=== PATIENT | male | born 1950 | race Caucasian/White ===

== ENCOUNTER 2021-09-18 09:58 | Inpatient (IN) ==
[2021-09-18] MEDS ORDERED: ONDANSETRON INJ 2 MG/ML 2 ML VIAL IV STA (10:19)
[2021-09-18] MEDS ORDERED: MoRPHine SULFATE 4 MG/ML 1 ML CARP\\VIAL IV PRN (10:19)
[2021-09-18] MEDS ORDERED: SODIUM CHLORIDE 0.9% 1000ML 1,000 ML IV STA (10:19)
[2021-09-18 10:33] LABS: Basophils # (auto) 0.01 K/uL (0-0.2); Basophils % (auto) 0.1 %; Eosinophils # (auto) 0.03 K/uL (0-0.5); Eosinophils % (auto) 0.4 %; Hemoglobin 15.7 g/dL (14.0-18.0); Immature Granulocytes # (auto) 0.03 K/uL (0.00-0.02); Immature Granulocytes % (auto) 0.4 %; Lymphocytes # (auto) 1.09 K/uL (1.2-3.4); Lymphocytes % (auto) 12.7 %; Mean Corpuscular Hemoglobin 29.6 pg (25-34); Mean Corpuscular Hgb Conc 34.9 g/dL (32-36); Mean Corpuscular Volume 84.9 fL (80-100); Mean Platelet Volume 10.1 fL (7.4-10.4); Monocytes # (auto) 1.64 K/uL (0.11-0.59); Monocytes % (auto) 19.1 %; Neutrophils # (auto) 5.77 K/uL (1.4-6.5); Neutrophils % (auto) 67.3 %; Platelet Count 296 K/uL (130-400); RDW Coefficient of Variation 14.8 % (11.5-14.5); White Blood Count 8.57 K/uL (4.8-10.8)
--- NOTE | 2021-09-18 10:34 | Emergency Department Note ---
Impression & Plan SBO (small bowel obstruction), Bowel perforation ED Provider Note NAME: RUBÉN MTZ AGE: 70 SEX: M : 1950 ARRIVES VIA: Walk-In INFORMANT: Patient, ED PROVIDER(S): Nikita Chopra DO CHIEF COMPLAINT: Abdominal pain HPI: The patient is a 70-year-old male who presented to the emergency department for an evaluation abdominal pain. The patient states he was having upper abdominal pain over the weekend. He initially thought it was GERD and reflux. Has been using [id number] medication for GERD and reflux without response. He then started noticing nausea vomiting and constipation. He tried MiraLAX without relief. His pain continued to worsen. He tried to see his family doctor today but was unable to get an appointment. He presented to the emergency department with his significant other for further evaluation. He has no surgical history on his abdomen. He has had no history of bowel obstruction in the past. He states he still has his gallbladder. He denies having any black or bloody bowel meds. He denies having any hematemesis. He denies having any fever. ROS: See above HPI for pertinent positives & negatives. A total of 10 systems reviewed and were otherwise negative. PAST MEDICAL HISTORY: See Below PAST SURGICAL HISTORY: See Below FAMILY HISTORY: See Below SOCIAL HISTORY: See Below HOME MEDICATIONS: See Below ALLERGIES: See Below VITALS: See Below PHYSICAL EXAMINATION: GENERAL: The patient is awake and alert. The patient is very anxious appearing appears to be uncomfortable. EYES: The conjunctivae are clear. The pupils are round and reactive. EARS, NOSE, MOUTH AND THROAT: The nose is without any evidence of any deformity. NECK: The neck is nontender and supple. RESPIRATORY: Normal respiratory effort is noted there is no evidence of wheezing rhonchi or rales CARDIOVASCULAR: Regular rate and rhythm noted there no murmurs rubs or gallops normal S1 normal S2. GASTROINTESTINAL: The abdomen was moderately distended and diffusely tender. Th ere is guarding in the right upper quadrant. No inguinal masses or tenderness was appreciated. MUSCULOSKELETAL/EXTREMITIES: There is no evidence of gross deformity full range of motion is noted in the hips and shoulders. SKIN: There is no obvious evidence of any rash. There are no petechiae, pallor or cyanosis noted. NEUROLOGIC: Patient is awake alert and oriented x3. MEDICAL DECISION MAKING: The patient is a 70-year-old male who presented to the emergency department for an evaluation of abdominal pain. The patient has had abdominal pain for the l ast 3 days. His history and physical exam are consistent with a possible surgical abdomen. For this reason further laboratory and radiographic studies were obtained. The patient was treated with IV fluids IV antibiotics and IV pain medication in the emergency department. I discussed the patient's condition with the on-call general surgical group. He was found no signs of bowel obstruction as well as possible perforation with an early abscess. The location would suggest a perforated appendicitis however the patient did not have fever or elevated white blood cell count. It is possible this represents a site of perforation that could be related to some other bowel pathology. The patient does not have a previous surgical history on his abdomen. He was reevaluated multiple times. He was evaluated by the general surgical group in the emergency department. Triage Nursing notes reviewed. Prior medical records reviewed Vital Signs: reviewed and remarkable for no significant abnormalities Differential diagnosis: Etiologies such as appendicitis, diverticulitis, obstruction, inflammatory bowel disease, renal colic, PUD, biliary pathology, pancreatitis, mesenteric ischemia, aortic pathology, infections, genitourinary, UTI, perforated viscus, as well as others were entertained. ER treatment provided: See below Diagnostics interpreted by me: ECG: EKG was obtained in the emergency department. My interpretation is sinus tachycardia 103 bpm. There is no ectopy. There is no acute ST segment abnormalities noted. No previous tracing was available. Cardiac Monitoring: An order was placed for continuous cardiac monitoring. The monitor shows a rate of 99 bpm with sinus rhythm. Laboratory studies: As stated above and show below. Imaging studies: See below Consultation(s): I discussed this case with Caleb Agee who is on for general surgery. They will evaluate the patient in the emergency department. Past Med/Surg History Surgical History History of tonsillectomy Social History Smoking Status: Former smoker Allergies Allergies Allergy/AdvReac Type Severity Reaction Status Date / Time No Known Allergies Allergy Unverified 09/18/21 10:36 Home Meds Home Medications Medication Instructions Recorded Confirmed Blossom Root Tab 1 tab PO DAILY 09/18/21 09/18/21 [id number]-[id number] 0 unit PO QPM 09/18/21 09/18/21 apple cider vinegar 300 mg tablet 0 mg PO DAILY 09/18/21 09/18/21 calcium carbonate 200 mg calcium 0 mg PO QID PRN 09/18/21 09/18/21 (500 mg) chewable tablet (Tums) cyanocobalamin (vitamin B-12) 100 0 mcg PO DAILY 09/18/21 09/18/21 mcg tablet (Vitamin B-12) esomeprazole magnesium 20 mg 0 mg PO DAILY 09/18/21 09/18/21 capsule,delayed release (Nexium) melatonin 5 mg tablet 5 mg PO HS 09/18/21 09/18/21 naproxen sodium 220 mg tablet 220 mg PO HS 09/18/21 09/18/21 (Aleve) omega-3 fatty acids 1,000 mg PO DAILY 09/18/21 09/18/21 Results & Data (ED) Vital Signs Vital Signs - 24 hr 09/18/21 10:05 09/18/21 10:41 09/18/21 11:44 Temperature 36.8 C Temperature Source Oral Pulse Rate 117 H 99 H Pulse Rate [Apical] 96 H Pulse Rate [Right Finger] Pulse Rate from SpO2 Sensor Pulse Rhythm Regular Pulse Rhythm [Right Finger] Pulse Strength [Right Finger] Respiratory Rate 20 18 19 Respiratory Effort / Characteristics Respiratory Depth Respiratory Pattern Blood Pressure 150/97 H Blood Pressure [Left Arm] 144/88 H Blood Pressure Mean 114 Blood Pressure Mean [Left Arm] 106 Blood Pressure Position [Left Arm] Pulse Oximetry 93 94 96 Oxygen Delivery Method Room Air Room Air Room Air Sepsis Recent Fever Within 48 Hours No Sepsis New/Unexplained Change in Mental Status No Sepsis Action Taken by Nursing No Action Required 09/18/21 12:00 09/18/21 12:30 09/18/21 13:34 Temperature Temperature Source Pulse Rate 94 H 94 H 102 H Pulse Rate [Apical] Pulse Rate [Right Finger] Pulse Rate from SpO2 Sensor 94 H 95 H Pulse Rhythm Pulse Rhythm [Right Finger] Pulse Strength [Right Finger] Respiratory Rate 23 19 20 Respiratory Effort / Characteristics Respiratory Depth Respiratory Pattern Blood Pressure 135/84 132/95 Blood Pressure [Left Arm] Blood Pressure Mean 101 107 Blood Pressure Mean [Left Arm] Blood Pressure Position [Left Arm] Pulse Oximetry 96 96 96 Oxygen Delivery Method Room Air Room Air Sepsis Recent Fever Within 48 Hours Sepsis New/Unexplained Change in Mental Status Sepsis Action Taken by Nursing 09/18/21 14:17 Temperature 37 C Temperature Source Oral Pulse Rate Pulse Rate [Apical] Pulse Rate [Right Finger] 99 H Pulse Rate from SpO2 Sensor Pulse Rhythm Pulse Rhythm [Right Finger] Regular Pulse Strength [Right Finger] Normal Respiratory Rate 18 Respiratory Effort / Characteristics Non-Labored Spontaneous Respiratory Depth Normal Respiratory Pattern Regular Blood Pressure Blood Pressure [Left Arm] 119/81 Blood Pressure Mean Blood Pressure Mean [Left Arm] 93 Blood Pressure Position [Left Arm] Sitting Pulse Oximetry 94 Oxygen Delivery Method Room Air Sepsis Recent Fever Within 48 Hours Sepsis New/Unexplained Change in Mental Status Sepsis Action Taken by Shelter Medications Current Medication List: was personally reviewed by me Laboratory Data Attestation: I reviewed the patient's lab results. Result diagrams: 09/18/21 10:20 09/18/21 10:20 Lab Results 09/18/21 09/18/21 09/18/21 Range/Units 10:20 10:20 10:20 WBC 8.57 (4.8-10.8) K/uL RBC 5.30 (4.7-6.1) M/uL Hgb 15.7 (14.0-18.0) g/dL POC Hgb (14.0-18.0) g/dl Hct 45.0 (42-52) % POC Hct (42-52) % MCV 84.9 (80-100) fL MCH 29.6 (25-34) pg MCHC 34.9 (32-36) g/dL RDW Std Deviation 46.0 (36.4-46.3) fL RDW Coeff of Gabbie 14.8 H (11.5-14.5) % Plt Count 296 (130-400) K/uL MPV 10.1 (7.4-10.4) fL Immature Gran % (Auto) 0.4 % Neut % (Auto) 67.3 % Lymph % (Auto) 12.7 % [place] % (Auto) 19.1 % Eos % (Auto) 0.4 % Baso % (Auto) 0.1 % Neut # (Auto) 5.77 (1.4-6.5) K/uL Lymph # (Auto) 1.09 L (1.2-3.4) K/uL [place] # (Auto) 1.64 H (0.11-0.59) K/uL Eos # (Auto) 0.03 (0-0.5) K/uL Baso # (Auto) 0.01 (0-0.2) K/uL Immature Gran # (Auto) 0.03 H (0.00-0.02) K/uL PT 11.7 (9.0-12.0) Seconds INR 1.1 (0.9-1.1) APTT 28.1 (21.0-31.0) Seconds PTT Ratio 1.0 POC Sodium (135-144) mmol/L Sodium 134 L (136-145) mmol/L POC Potassium (3.3-5.0) mmol/L Potassium 4.0 (3.5-5.1) mmol/L POC Chloride (101-112) mmol/L Chloride 100 (98-107) mmol/L Carbon Dioxide 22 (21-32) mmol/L POC Total CO2 (24-31) mmol/L Anion Gap 12 H (3-11) POC Anion Gap (16-25) mmol/L POC BUN (7-18) mg/dl BUN 50 H (6-23) mg/dl Creatinine 1.65 H (0.6-1.4) mg/dl POC Creatinine (0.6-1.3) mg/dl Est Cr Clr Drug Dosing 45.7 ml/min Est GFR ( Amer) 47.4 ml/min Est GFR (Non-Af Amer) 40.9 ml/min BUN/Creatinine Ratio 30.3 H (10-20) Glucose 129 H (70-99(Fasting)) mg/dl POC Glucose (other) (70-99) mg/dl Calcium 9.8 (8.5-10.1) mg/dl POC Ioniz Calcium Jonny (1.12-1.32) mmol/l Total Bilirubin 2.5 H (0.2-1.0) mg/dl AST 12 L (13-39) U/L ALT 11 (7-52) U/L Alkaline Phosphatase 75 (34-104) U/L Troponin I < 0.03 (0-0.04) ng/ml Total Protein 8.2 (6.0-8.3) gm/dl Albumin 3.9 (3.4-5.0) gm/dl Globulin 4.3 H (2.5-4.0) gm/dl Albumin/Globulin Ratio 0.9 (0.9-2) Lipase 9 L (11-82) U/L SARS-CoV-2, RNA, NAAT (NEGATIVE) 09/18/21 09/18/21 Range/Units 10:27 Unknown WBC (4.8-10.8) K/uL RBC (4.7-6.1) M/uL Hgb (14.0-18.0) g/dL POC Hgb 17.3 (14.0-18.0) g/dl Hct (42-52) % POC Hct 51 (42-52) % MCV (80-100) fL MCH (25-34) pg MCHC (32-36) g/dL RDW Std Deviation (36.4-46.3) fL RDW Coeff of Gabbie (11.5-14.5) % Plt Count (130-400) K/uL MPV (7.4-10.4) fL Immature Gran % (Auto) % Neut % (Auto) % Lymph % (Auto) % [place] % (Auto) % Eos % (Auto) % Baso % (Auto) % Neut # (Auto) (1.4-6.5) K/uL Lymph # (Auto) (1.2-3.4) K/uL [place] # (Auto) (0.11-0.59) K/uL Eos # (Auto) (0-0.5) K/uL Baso # (Auto) (0-0.2) K/uL Immature Gran # (Auto) (0.00-0.02) K/uL PT (9.0-12.0) Seconds INR (0.9-1.1) APTT (21.0-31.0) Seconds PTT Ratio POC Sodium 136 (135-144) mmol/L Sodium (136-145) mmol/L POC Potassium 4.0 (3.3-5.0) mmol/L Potassium (3.5-5.1) mmol/L POC Chloride 102 (101-112) mmol/L Chloride (98-107) mmol/L Carbon Dioxide (21-32) mmol/L POC Total CO2 21 L (24-31) mmol/L Anion Gap (3-11) POC Anion Gap 17.0 (16-25) mmol/L POC BUN 48 H (7-18) mg/dl BUN (6-23) mg/dl Creatinine (0.6-1.4) mg/dl POC Creatinine 1.6 H (0.6-1.3) mg/dl Est Cr Clr Drug Dosing ml/min Est GFR ( Amer) ml/min Est GFR (Non-Af Amer) ml/min BUN/Creatinine Ratio (10-20) Glucose (70-99(Fasting)) mg/dl POC Glucose (other) 134 H (70-99) mg/dl Calcium (8.5-10.1) mg/dl POC Ioniz Calcium Jonny 1.20 (1.12-1.32) mmol/l Total Bilirubin (0.2-1.0) mg/dl AST (13-39) U/L ALT (7-52) U/L Alkaline Phosphatase (34-104) U/L Troponin I (0-0.04) ng/ml Total Protein (6.0-8.3) gm/dl Albumin (3.4-5.0) gm/dl Globulin (2.5-4.0) gm/dl Albumin/Globulin Ratio (0.9-2) Lipase (11-82) U/L SARS-CoV-2, RNA, NAAT NEGATIVE (NEGATIVE) Administered Medications Morphine Sulfate (Morphine Sulfate 4 Mg/Ml 1 Ml Carp\Vial) 4 mg IV Q15M PRN PRN Reason: Pain Stop: 10/02/21 10:18 Last Admin: 09/18/21 10:36 Dose: 4 mg Documented by: [id number] Discontinued Medications Sodium Chloride (Nss 1000ml) 1,000 mls @ 999 mls/hr IV .Q1H1M STA Stop: 09/18/21 11:19 Last Infusion: 09/18/21 12:15 Dose: 0 mls/hr Documented by: [id number] Admin: 09/18/21 10:35 Dose: 999 mls/hr Documented by: [id number] Piperacillin Sod/Tazobactam Sod (Zosyn) 4.5 gm in 120 mls @ 240 mls/hr IV NOW ONE Stop: 09/18/21 11:47 Last Infusion: 09/18/21 12:16 Dose: 0 mls/hr Documented by: [id number] Admin: 09/18/21 11:46 Dose: 240 mls/hr Documented by: [id number] Ioversol (Optiray 320 100ml) 94 ml IV ONCE ONE Stop: 09/18/21 11:14 Last Admin: 09/18/21 11:14 Dose: 94 ml Documented by: [id number] Ondansetron HCl (Ondansetron Inj 2 Mg/Ml 2 Ml Vial) 4 mg IV NOW STA Stop: 09/18/21 10:20 Last Admin: 09/18/21 10:36 Dose: 4 mg Documented by: [id number] Imaging Data Radiologist's Impression: Abdomen/Pelvis CT 09/18/21 10:19 CT SCAN OF THE ABDOMEN AND PELVIS WITH IV CONTRAST CLINICAL HISTORY: Generalized abdominal pain. COMPARISON STUDY: No priors. TECHNIQUE: Following the IV administration of 94 cc of Optiray 320, CT scan of the abdomen and pelvis is performed from the lung bases to the proximal femora. Images are reviewed in the axial, sagittal, and coronal planes. IV contrast was administered without complication. A dose lowering technique was utilized adhering to the principles of ALARA. CT DOSE: 518.12 mGy.cm FINDINGS: Lung bases: The heart is normal in size and without pericardial effusion. The coronary arteries are densely calcified. Emphysematous change is noted at the lung bases. Scarring/atelectasis is seen in the lower lobes. There is no airspace consolidation typical for pneumonia or pleural effusion identified. Liver: The contrast-enhanced liver is normal in size, contour, and attenuation. There is no intrahepatic biliary ductal dilatation. The hepatic veins and portal veins are patent. A 13 mm cyst is noted in the left lobe. Gallbladder: Unremarkable. Spleen: Normal in size and attenuation. Pancreas: Moderately atrophic and grossly unremarkable. Adrenal glands: Unremarkable. Kidneys: The contrast enhanced kidneys demonstrate cortical atrophy and are without hydronephrosis. The kidneys enhance symmetrically. A 4 mm nonobstructing calculus is noted in the left kidney. Abdominal vasculature: The abdominal aorta is normal in course and caliber noting advanced atherosclerotic calcification. Stomach and bowel: There is a moderate hiatal hernia. The proximal small bowel loops are dilated and fluid-filled measuring up to 5 cm. The distal/terminal ileum is markedly inflamed and decompressed. There is a possible transition point in the ventral abdomen on image #310. There are small bowel loops tethered in the central abdomen with evidence of perforation and peritonitis. A gas and fluid containing tract in the central mesentery on image #302 measures approximately 2 x 2 x 7.5 cm. A complex gas and fluid containing collection closely approximating the cecum on image #337 measures approximately 4 x 4 x 1.5 cm. The appendix is abnormally thickened and fluid-filled measuring up to 1.0 cm in diameter as seen on image #415. The wall appears thickened and hyperemic. Additionally, there is advanced diverticulosis of the sigmoid colon with surrounding inflammation. Peritoneum: Numerous foci of intraperitoneal free air are identified in the anterior abdomen and below the diaphragm. Trace free fluid is seen in the pelvis. See above for discussion of gas and fluid containing collections. Lymphadenopathy: None. Pelvic viscera: The prostate gland is markedly enlarged and heterogeneous noting median lobe hypertrophy. The bladder wall is thickened and trabeculated indicating chronic outlet obstruction. There is a small fat-containing left inguinal hernia. Skeletal structures: The skeletal structures are osteopenic. There is mild to moderate lumbosacral spondylosis. Advanced arthritic change is seen in the right hip. No lytic or blastic lesions are seen. An 11 mm bone island is incidentally noted in the sacrum. IMPRESSION: 1. There is evidence of visceral perforation and peritonitis with free air in the anterior abdomen and below the diaphragm. 2. The proximal small bowel loops are markedly distended and fluid-filled with a possible transition point in the distal ileum. This could represent a small bowel obstruction or possibly reactive ileus. 3. The exact site of perforation is unclear, and the greatest inflammation is seen involving the distal/terminal ileum. This may represent the site of perforation. Additional potential sites of perforation are considered less likely but include perforated appendicitis and/or sigmoid diverticulitis. 4. There gas and fluid containing collections in the central mesentery and along the lateral aspect of the cecum as detailed above. These likely represent developing abscesses 5. There is trace free fluid in the pelvis. 6. Emphysema. 7. Additional findings as above. ACT 112: Negative or not required by law. Electronically signed by: Long Lane M.D. 09/18/2021 11:36 AM Chest X-Ray 09/18/21 10:19 XR chest 1V portable CLINICAL HISTORY: pain. COMPARISON STUDY: No previous studies for comparison. TECHNIQUE: 1 view of the chest FINDINGS: Single frontal view of the chest demonstrates the cardiomediastinal silhouette to be within normal limits. There is a decreased inspiratory effort with elevation of the hemidiaphragms and crowding of the bronchovascular markings at the lung bases and centrally. Linear atelectasis is seen at the left lung base. The lungs are clear of alveolar opacities. There is no evidence for pleural effusion. There is no evidence for vascular congestion. There is no acute oss eous pathology. IMPRESSION: 1. Decreased inspiratory effort with linear atelectasis at the left lung base. ACT 112: Negative or not required by law. Electronically signed by: Emil Faith M.D. 09/18/2021 11:11 AM Discharge Plan Visit Data Chief Complaint: Abdominal Pain Stated Complaint: ABD PAIN ED Provider: Nikita Chopra Discharge Problem: SBO (small bowel obstruction), Bowel perforation Patient Disposition: Being Evaluated by Surgeon Discharge Instructions Interventions: ED Discharge Assessment Last Done: 09/18/21 13:36 Forms Stand Alone Forms: [id number] Prescriptions Prescriptions: No Action cyanocobalamin (vitamin B-12) [Vitamin B-12] 100 mcg Tablet 0 mcg PO DAILY RF: 0 [place] 3 Capsule 1,000 mg PO DAILY RF: 0 apple cider vinegar 300 mg Tablet 0 mg PO DAILY RF: 0 Blossom Root Tab 1 tab PO DAILY RF: 0 Beano Tablet 0 unit PO QPM RF: 0 naproxen sodium [Aleve] 220 mg Tablet 220 mg PO HS RF: 0 calcium carbonate [Tums] 200 mg calcium (500 mg) Tablet,Chewable 0 mg PO QID PRN (Reason: gi-upset) RF: 0 esomeprazole magnesium [Nexium] 20 mg Capsule,Delayed Release(Dr/Ec) 0 mg PO DAILY RF: 0 melatonin 5 mg Tablet 5 mg PO HS RF: 0 Referrals Referrals: PCP,NO [Physician] -
[2021-09-18 10:38] LABS: iSTAT Creatinine 1.6 mg/dl (0.6-1.3); iSTAT Hemoglobin 17.3 g/dl (14.0-18.0); iSTAT Ionized Calcium 1.2 mmol/l (1.12-1.32)
[2021-09-18 10:49] LABS: INR 1.1 (0.9-1.1); Partial Thromboplastin Time 28.1 Seconds (21.0-31.0); Prothrombin Time 11.7 Seconds (9.0-12.0)
[2021-09-18 10:55] LABS: Alanine Aminotransferase 11 U/L (7-52); Albumin Globulin Ratio 0.9 (0.9-2); Albumin Level 3.9 gm/dl (3.4-5.0); Alkaline Phosphatase 75 U/L (34-104); Anion Gap 12 (3-11); Aspartate Aminotransferase 12 U/L (13-39); BUN Creatinine Ratio 30.3 (10-20); Bilirubin,Total 2.5 mg/dl (0.2-1.0); Blood Urea Nitrogen 50 mg/dl (6-23); Calcium 9.8 mg/dl (8.5-10.1); Carbon Dioxide 22 mmol/L (21-32); Chloride 100 mmol/L (98-107); Creatinine Clr Calc Pharmacy 45.7 ml/min; Est GFR (African American) 47.4 ml/min; Est GFR (Non-African American) 40.9 ml/min; Globulin 4.3 gm/dl (2.5-4.0); Glucose 129 mg/dl (70-99(Fasting)); Lipase 9 U/L (11-82); Sodium 134 mmol/L (136-145); Total Protein 8.2 gm/dl (6.0-8.3)
[2021-09-18 10:57] LABS: Troponin I < 0.03 ng/ml (0-0.04)
--- NOTE | 2021-09-18 11:12 | XRay Report ---
XR chest 1V portable CLINICAL HISTORY: pain. COMPARISON STUDY: No previous studies for comparison. TECHNIQUE: 1 view of the chest FINDINGS: Single frontal view of the chest demonstrates the cardiomediastinal silhouette to be within normal li mits. There is a decreased inspiratory effort with elevation of the hemidiaphragms and crowding of th e bronchovascular markings at the lung bases and centrally. Linear atelectasis is seen at the left damian ng base. The lungs are clear of alveolar opacities. There is no evidence for pleural effusion. There is no evidence for vascular congestion. There is no acute osseous pathology. IMPRESSION: 1. Decreased inspiratory effort with linear atelectasis at the left lung base. ACT 112: Negative or not required by law. Electronically signed by: Emil Faith M.D. 09/18/2021 11:11 AM
[2021-09-18] MEDS ORDERED: OPTIRAY 320 100ml IV ONE (11:13)
[2021-09-18] MEDS ORDERED: PIPERACILL/TAZOBAC CONSULT ACTIVE PRN ×2 (11:18→21:16)
[2021-09-18] MEDS ORDERED: PIPERACILLIN/TAZOBACTAM 4.5 GM/120 ML BAG IV ONE (11:18)
--- NOTE | 2021-09-18 11:39 | CT Scan Report ---
CT SCAN OF THE ABDOMEN AND PELVIS WITH IV CONTRAST CLINICAL HISTORY: Generalized abdominal pain. COMPARISON STUDY: No priors. TECHNIQUE: Following the IV administration of 94 cc of Optiray 320, CT scan of the abdomen and pelvi s is performed from the lung bases to the proximal femora. Images are reviewed in the axial, sagittal , and coronal planes. IV contrast was administered without complication. A dose lowering technique wa s utilized adhering to the principles of ALARA. CT DOSE: 518.12 mGy.cm FINDINGS: Lung bases: The heart is normal in size and without pericardial effusion. The coronary arteries are d ensely calcified. Emphysematous change is noted at the lung bases. Scarring/atelectasis is seen in th e lower lobes. There is no airspace consolidation typical for pneumonia or pleural effusion identifie d. Liver: The contrast-enhanced liver is normal in size, contour, and attenuation. There is no intrahepa tic biliary ductal dilatation. The hepatic veins and portal veins are patent. A 13 mm cyst is noted i n the left lobe. Gallbladder: Unremarkable. Spleen: Normal in size and attenuation. Pancreas: Moderately atrophic and grossly unremarkable. Adrenal glands: Unremarkable. Kidneys: The contrast enhanced kidneys demonstrate cortical atrophy and are without hydronephrosis. T he kidneys enhance symmetrically. A 4 mm nonobstructing calculus is noted in the left kidney. Abdominal vasculature: The abdominal aorta is normal in course and caliber noting advanced atheroscle rotic calcification. Stomach and bowel: There is a moderate hiatal hernia. The proximal small bowel loops are dilated and fluid-filled measuring up to 5 cm. The distal/terminal ileum is markedly inflamed and decompressed. T here is a possible transition point in the ventral abdomen on image #310. There are small bowel loops tethered in the central abdomen with evidence of perforation and peritonitis. A gas and fluid contai cherrie tract in the central mesentery on image #302 measures approximately 2 x 2 x 7.5 cm. A complex ga s and fluid containing collection closely approximating the cecum on image #337 measures approximatel y 4 x 4 x 1.5 cm. The appendix is abnormally thickened and fluid-filled measuring up to 1.0 cm in wilfrido meter as seen on image #415. The wall appears thickened and hyperemic. Additionally, there is advance d diverticulosis of the sigmoid colon with surrounding inflammation. Peritoneum: Numerous foci of intraperitoneal free air are identified in the anterior abdomen and belo w the diaphragm. Trace free fluid is seen in the pelvis. See above for discussion of gas and fluid co ntaining collections. Lymphadenopathy: None. Pelvic viscera: The prostate gland is markedly enlarged and heterogeneous noting median lobe hypertro phy. The bladder wall is thickened and trabeculated indicating chronic outlet obstruction. There is a small fat-containing left inguinal hernia. Skeletal structures: The skeletal structures are osteopenic. There is mild to moderate lumbosacral sp ondylosis. Advanced arthritic change is seen in the right hip. No lytic or blastic lesions are seen. An 11 mm bone island is incidentally noted in the sacrum. IMPRESSION: 1. There is evidence of visceral perforation and peritonitis with free air in the anterior abdomen an d below the diaphragm. 2. The proximal small bowel loops are markedly distended and fluid-filled with a possible transition point in the distal ileum. This could represent a small bowel obstruction or possibly reactive ileus. 3. The exact site of perforation is unclear, and the greatest inflammation is seen involving the dist al/terminal ileum. This may represent the site of perforation. Additional potential sites of perforat ion are considered less likely but include perforated appendicitis and/or sigmoid diverticulitis. 4. There gas and fluid containing collections in the central mesentery and along the lateral aspect o f the cecum as detailed above. These likely represent developing abscesses 5. There is trace free fluid in the pelvis. 6. Emphysema. 7. Additional findings as above. ACT 112: Negative or not required by law. Electronically signed by: Long Lane M.D. 09/18/2021 11:36 AM
--- NOTE | 2021-09-18 12:15 | Electrocardiogram Report ---
Test Reason : Blood Pressure : / mmHG Vent. Rate : 103 BPM Atrial Rate : 103 BPM P-R Int : 152 ms QRS Dur : 092 ms QT Int : 332 ms P-R-T Axes : 066 052 063 degrees QTc Int : 434 ms Sinus tachycardia Otherwise normal ECG No previous ECGs available Confirmed by Nikita Goodson ([id number]) on 09/18/2021 12:15:22 PM Referred By: Confirmed By:Nikita Goodson
--- NOTE | 2021-09-18 13:55 | History & Physical Report ---
Date of Service September 18, 2021 Assessment & Plan (1) Perforated viscus: Plan: We discussed his findings. Certainly the patient needs to go urgently to the operating room for exploration. My suspicion is he has a perforated appendectomy with associated small bowel obstruction. This has also resulted in the intra-abdominal abscesses. We will take him to the operating room urgently for exploratory laparotomy possible bowel resection abdominal washout and surgery as needed. He will need antibiotics and rehydration. I discussed his options as well as the risks associated with the procedure which include bleeding, infection, injury to another organ, DVT, PE, WA, CVA etc. Following our discussion I answered all of his questions. He agrees with the plan. We will take him soon as possible to the operating room for exploration/ surgery as needed. (2) Small bowel obstruction: (3) Intra-abdominal abscess: (4) Dehydration: History of Present Illness Primary Care Provider: Baldo Maldonado MD 70-year-old healthy male who began having abdominal pain and nausea vomiting this past Thursday. His pain is progressed as has his nausea and vomiting. He was unable to have a bowel movement and took some toow-zwn-yggjbns laxatives. Imaging today reveals perforated viscus with small bowel obstruction and multiple abdominal abscesses. Allergies Allergy/AdvReac Type Severity Reaction Status Date / Time No Known Allergies Allergy Unverified 09/18/21 10:36 Home Medications Medication Instructions Recorded Confirmed Type Blossom Root Tab 1 tab PO DAILY 09/18/21 09/18/21 History tridi-p-krcpkcccypyyw 0 unit PO QPM 09/18/21 09/18/21 History apple cider vinegar 300 mg tablet 0 mg PO DAILY 09/18/21 09/18/21 History calcium carbonate 200 mg calcium 0 mg PO QID PRN 09/18/21 09/18/21 History (500 mg) chewable tablet (Tums) cyanocobalamin (vitamin B-12) 100 0 mcg PO DAILY 09/18/21 09/18/21 History mcg tablet (Vitamin B-12) esomeprazole magnesium 20 mg 0 mg PO DAILY 09/18/21 09/18/21 History capsule,delayed release (Nexium) melatonin 5 mg tablet 5 mg PO HS 09/18/21 09/18/21 History naproxen sodium 220 mg tablet 220 mg PO HS 09/18/21 09/18/21 History (Aleve) omega-3 fatty acids 1,000 mg PO DAILY 09/18/21 09/18/21 History Past Med/Surg History Surgical History History of tonsillectomy Social History Smoking Status: Former smoker Review of Systems All systems reviewed & are unremarkable except as noted in HPI & below Physical Exam Constitutional: Alert. No acute distress. Mucous membranes are dry. Eyes: PERRL, conjunctivae normal, anicteric sclerae EOM intact bilaterally ENMT: external ear and nose normal, oropharynx normal Ears: no hearing impairment Neck: trachea midline, no thyromegaly Respiratory: normal respiratory effort; no respiratory distress and does not use accessory muscles Gastrointestinal (Abdomen): Soft. Mild distention. Diffuse tenderness to palpation. Positive guarding positive rebound greatest tenderness is in the right lower quadrant. Skin: no rashes, warm and dry Psychiatric: Orientation: alert, oriented x 3 and cooperative Results & Data ([facility]) Vital Signs (Past 12 Hours) Vital Signs Temp Pulse Pulse Resp BP BP Pulse Ox 09/18/21 13:34 102 H 20 132/95 96 09/18/21 12:30 94 H 19 96 09/18/21 12:00 94 H 23 135/84 96 09/18/21 11:44 96 H 19 144/88 H 96 09/18/21 10:41 99 H 18 94 09/18/21 10:05 36.8 C 117 H 20 150/97 H 93
[2021-09-18] MEDS ORDERED: ePHEDrine sulfate 50 MG/ML AMP IV PRN (14:40)
[2021-09-18] MEDS ORDERED: ATROPINE SULFATE 0.1 MG/ML 10ML SYR IV PRN (14:40)
[2021-09-18] MEDS ORDERED: ONDANSETRON INJ 2 MG/ML 2 ML VIAL IV PRN ×2 (14:40→21:16)
[2021-09-18] MEDS ORDERED: HYDROmorphone INJ 1 MG/ML SYRINGE IV PRN ×2 (14:40→23:27)
--- NOTE | 2021-09-18 14:40 | Anesthesiology Consultation ---
Date of Service September 18, 2021 Assessment & Plan (1) Encounter for pre-operative examination: Chart Review Chart Review: data entry processor initiated History Surgery Operation Date: 09/18/21 14:35 Proposed Procedures p Exploratory Laparotomy Possible Bowel Resection - Geo Soliman, Height/Weight Height: 6 ft 1 in Weight: 90.8 kg Allergies Allergy/AdvReac Type Severity Reaction Status Date / Time No Known Allergies Allergy Unverified 09/18/21 10:36 Medications Home Medications Medication Instructions Recorded Confirmed Last Taken Blossom Root Tab 1 tab PO DAILY 09/18/21 09/18/21 Unknown xsniw-h-xmahxaxdbnazz 0 unit PO QPM 09/18/21 09/18/21 Unknown apple cider vinegar 300 mg tablet 0 mg PO DAILY 09/18/21 09/18/21 Unknown calcium carbonate 200 mg calcium 0 mg PO QID PRN 09/18/21 09/18/21 Unknown (500 mg) chewable tablet (Tums) cyanocobalamin (vitamin B-12) 100 0 mcg PO DAILY 09/18/21 09/18/21 Unknown mcg tablet (Vitamin B-12) esomeprazole magnesium 20 mg 0 mg PO DAILY 09/18/21 09/18/21 Unknown capsule,delayed release (Nexium) melatonin 5 mg tablet 5 mg PO HS 09/18/21 09/18/21 Unknown naproxen sodium 220 mg tablet 220 mg PO HS 09/18/21 09/18/21 Unknown (Aleve) omega-3 fatty acids 1,000 mg PO DAILY 09/18/21 09/18/21 Unknown Active Medications Generic Name Dose Route Start Last Admin Trade Name Karthikq PRN Reason Stop Dose Admin Morphine Sulfate 4 mg 09/18/21 10:19 09/18/21 10:36 Morphine Sulfate 4 Mg/Ml 1 Ml Carp\Vial IV 10/02/21 10:18 4 mg Q15M PRN Administration Pain NPO Date Last Intake of Fluids: 09/18/21 Time Last Intake of Fluids: 09:30 Last Intake of Fluids Comment: Sips of pedilyte Date Last Intake of Solids: 09/17/21 Time Last Intake of Solids: 18:00 Past Surgical History Surgical History History of tonsillectomy Social History Smoking Status: Former smoker Physical Exam Vital Signs Last Vital Signs Temp 98.6 F 09/18/21 14:17 Pulse 99 H 09/18/21 14:17 Resp 18 09/18/21 14:17 BP 119/81 09/18/21 14:17 Pulse Ox 94 09/18/21 14:17 Testing Laboratory Results 09/18/21 10:20 09/18/21 10:20 PT 11.7 Seconds (9.0-12.0) 09/18/21 10:20 INR 1.1 (0.9-1.1) 09/18/21 10:20 APTT 28.1 Seconds (21.0-31.0) 09/18/21 10:20 09/18/21 10:27 POC Glucose (other) 134 H Electrocardiogram Date: 09/18/21 Sinus tachycardia, rate 103 bpm Otherwise normal ECG No previous ECGs available Confirmed by Nikita Goodson ([id number]) on 09/18/2021 12:15:22 PM Chest X-Ray Date: 09/18/21 IMPRESSION: 1. Decreased inspiratory effort with linear atelectasis at the left lung base.
[2021-09-18] MEDS ORDERED: PROPOFOL IV EMULSION 10 MG/ML 20 ML VIAL IV ONE (15:17)
[2021-09-18] MEDS ORDERED: LIDOCAINE 2% 2 ML VIAL/AMP(20MG/ML) INFIL ONE (15:17)
[2021-09-18] MEDS ORDERED: GLYCOPYRROLATE 0.2 MG/ML VIAL ONE (15:17)
[2021-09-18] MEDS ORDERED: ROCURONIUM BROMIDE 10 MG/ML 5 ML VIAL IV ONE ×2 (15:17→16:49)
[2021-09-18] MEDS ORDERED: LARYING-O-JET KIT (LTA) ONE (15:17)
[2021-09-18] MEDS ORDERED: ePHEDrine sulfate 50 MG/ML SYR ONE (15:17)
[2021-09-18] MEDS ORDERED: ONDANSETRON INJ 2 MG/ML 2 ML VIAL ONE (15:17)
[2021-09-18] MEDS ORDERED: DEXAMETHASONE SOD INJ 4 MG/ML VIAL ONE (15:17)
[2021-09-18] MEDS ORDERED: fentaNYL citrate 100 MCG/2 ML VIAL ONE ×2 (15:17→16:11)
[2021-09-18] MEDS ORDERED: NEOSTIGMINE METHYLSULFATE 1 MG/ML 10ML VIAL ONE (15:17)
[2021-09-18] MEDS ORDERED: MIDAZOLAM HCL 1 MG/ML 2ML VIAL ONE (15:17)
[2021-09-18] MEDS ORDERED: EPINEPHrine INJ 1 MG/ML AMP ONE (15:20)
[2021-09-18] MEDS ORDERED: BUPIVACAINE 0.5 % 5 MG/1 ML MPF 30ML VIAL ONE (15:20)
[2021-09-18] MEDS ORDERED: SUCCINYLCHOLINE CHLORIDE 20 MG/ML 10 ML VIAL IV ONE (16:49)
[2021-09-18] MEDS ORDERED: HYDROmorphone INJ 2 MG/ML SYR/VIAL ONE (17:00)
--- NOTE | 2021-09-18 17:56 | Operative Report ---
PG Post Operative Report Pre & Post Diagnosis Operation Date: 09/18/21 14:35 Pre-Op Diagnosis: Perforated viscus, Small bowel obstruction, Intra-abdominal abscess Post-Op Diagnosis: Perforated diverticulitis;sbo; intra-abdominal abcesses;umbilical hernia. I identified the patient and participated in the time-out.: Yes Procedure Operation Date: 09/18/21 14:35 Actual Procedures p Exploratory Laparotomy, Sigmoid Colectomy, Colostomy, Appendectomy, Abdominal Washout, Release of Small Bowel Obstruction, Umbilical Hernia Repair(Not Applicable) - Geo Soliman DO Surgeon eGo Soliman DO Internet Marketing Strategist fawad Alanis Estimated Blood Loss 25 Findings Consistent with Post-Op Diagnosis Specimens 1. sigmoid colon 2. appendix Description of Procedure After informed consent was obtained the patient was taken to the operating room and placed in supine position. After successful intubation and nasogastric tube and a Irvin catheter were placed. The abdomen was shaved and sterilely prepped and draped in usual fashion. Midline incision was made from above the umbilicus down around to the pubic symphysis. This would be extended later in the case for several centimeters superiorly as well. We carried this down to the anterior fascia which we opened. The peritoneum was elevated with hemostats and incised under direct vision using a Metzenbaum scissor. We then extended the incision to both poles using cautery. Once in the abdomen we readily encountered several pockets of purulent fluid. There was no foul smell. There was no succus. The majority of the inflammation was in the lower abdomen towards the right lower quadrant. The appendix and cecum appeared to be grossly inflamed with some exudate. There was also some interloop mesenteric abscesses which were finger fractionated and suctioned out. There was a small bowel obstruction with transition point in the lower abdomen. Initially we were unabl e to find the site of perforation. I evaluated the stomach and duodenum which appeared normal. The nasogastric tube was placed nicely into the distal stomach. We ran the bowel from the ligament of Treitz to the terminal ileum and other than some exudate and dilated bowel there was no obvious site of perforation. At this point I examined the left colon and follow this down over the pelvic brim. I had to finger fractionated at the attachment to the urinary bladder. At this point I palpated a very large sigmoid mass. At first I was concerned this may be a malignancy however in hindsight I believe this is likely a diverticular abscess. There was a small disruption of the serosa on the anterior surface which had sealed itself off but which I believe was the site of free air once imaging. We looked around the remainder of the abdomen and no other gross abnormalities were found. I decided because of the inflammatory aspect to go ahead and perform an appendectomy. A window was made in the mesentery of the appendix and taken down using a NIKOLAS brown cartridge 60 mm stapler. Appendix itself was transected from the cecum using a purple cartridge linear stapler and it was passed off. Next we freed up the left colon and sigmoid colon along the white line of Toldt using finger fractionation electrocautery. We then picked a portion of the bowel that was normal several inches proximal to the inflammatory mass. This was divided using 2 firings of a NIKOLAS 60 mm purple cartridge. Using similar technique we created a window in the mesentery of the sigmoid colon distal to the inflammatory mass and again divided it using a purple cartridges. LigaSure device was used to take down the mesentery. I did open the specimen on the back table. There was pus within the lumen of the bowel itself. Visibility was poor but I did not see any actual mucinous type of mass. It was sent to pathology. I changed my gloves and scrubbed back into the case. At this point we thoroughly irrigated all quadrants of the abdomen with multiple liters of warm irrigation. There was adequate hemostasis. At this point I placed two #2-0 Prolene stitches on each corner of the rectal stump for identification purposes later. A window in the left mid abdomen was made with a fresh skin blade. The fascia was opened in a cruciate fashion using cautery. Peritoneum was opened and spread using fingers. A Quentin clamp was advanced through this opening in the staple portion of the left colon was delivered easily out through this opening. It would be matured at the end of the case. There were no other abnormalities and all the purulent fluid was evacuated. The fascia was closed using 0-looped PDS starting either pole and running and securing them together in the midline. We incorporated the umbilical hernia with this closure. Soft tissue was irrigated and skin was closed over 1/4 inch Monteagle drain. Silver dressing, gauze and tape was used over the wound. The staple line of the colostomy was opened and the stoma matured using 3-0 Monocryl in Saray fashion. An ostomy device was placed. I forgot to mention that prior to closure a #19 Alexi drain was placed in a right sided stab incision and advanced along the right paracolic gutter into the pelvis. It was secured to the skin using 2-0 Prolene. The patient was awakened extubated and transferred to recovery in stable condition. My physician esol teacher assistant was present through the entire case. He was instrumental throughout all aspects including retraction throughout my dissection assistance with the resection ostomy formation etc. I attest to the content of the Intraoperative Record and any orders documented therein. Any exceptions are noted below.
[2021-09-18] MEDS: fentaNYL citrate 100 MCG/2 ML VIAL IV PRN ×3 (17:57→18:14)
--- NOTE | 2021-09-18 19:36 | Anesthesiology Progress Note ---
Date of Service September 18, 2021 Anesthesia Post Procedure Vital Signs Vital Signs: Temp Pulse Pulse Pulse Resp BP BP 09/18/21 19:00 98.8 F 107 H 16 160/97 H 09/18/21 18:50 98.8 F 105 H 11 L 124/91 09/18/21 18:40 98.8 F 103 H 17 138/90 09/18/21 18:30 98.8 F 99 H 14 171/85 H 09/18/21 18:20 93 H 13 159/93 H 09/18/21 18:10 89 18 172/103 H 09/18/21 18:00 100 H 18 168/126 H 09/18/21 17:50 100 H 18 160/110 H 09/18/21 17:42 96.8 F L 97 H 18 192/101 H 09/18/21 14:17 98.6 F 99 H 18 119/81 09/18/21 13:34 102 H 20 132/95 09/18/21 12:30 94 H 19 09/18/21 12:00 94 H 23 135/84 09/18/21 11:44 96 H 19 144/88 H 09/18/21 10:41 99 H 18 09/18/21 10:05 98.2 F 117 H 20 150/97 H Pulse Ox 09/18/21 19:00 94 09/18/21 18:50 94 09/18/21 18:40 96 09/18/21 18:30 96 09/18/21 18:20 94 09/18/21 18:10 95 09/18/21 18:00 96 09/18/21 17:50 97 09/18/21 17:42 98 09/18/21 14:17 94 09/18/21 13:34 96 09/18/21 12:30 96 09/18/21 12:00 96 09/18/21 11:44 96 09/18/21 10:41 94 09/18/21 10:05 93 Pain Intensity Abdomen: Pain Intensity: 8 Transfer of Care Handoff Completed per policy Notes Mental Status: alert / awake / arousable and participated in evaluation Patient Amnestic to Procedure: Yes Nausea / Vomiting: adequately controlled Pain: adequately controlled Airway Patency, RR, SpO2: stable & adequate BP & HR: stable & adequate Hydration State: stable & adequate Anesthetic Complications: no major complications apparent and Pt Satisfied with anesthetic care Notes: patient maintaining oxygenation with 3-4L oxymask, OK for discharge to floor with continued pulse oximeter
[2021-09-18] MEDS ORDERED: HALOPERIDOL LACTATE 5 MG/ML 1 ML VIAL IV STA (19:52)
[2021-09-18] MEDS ORDERED: HALOPERIDOL LACTATE 5 MG/ML 1 ML VIAL ONE (19:57)
[2021-09-18] MEDS ORDERED: NALOXONE HCL 0.4 MG/1 ML VIAL/CARP IV PRN (21:16)
[2021-09-18] MEDS ORDERED: ACETAMINOPHEN 65 ML IV ONE (21:16)
[2021-09-18] MEDS ORDERED: ACETAMINOPHEN 1,000 MG/100 ML VIAL IV ONE (21:30)
[2021-09-18] MEDS ORDERED: FUROSEMIDE INJ 20 MG/2 ML VIAL IV ONE (21:37)
[2021-09-18 22:41] LABS: HCO3 ABG 18 mmol/L (19-24); Oxygen Saturation ABG 94.7 % (90-95); PCO2 ABG 31 mmHg (35-46); PO2 ABG 70 mmHg (80-95); pH ABG 7.38 (7.35-7.45)
[2021-09-18 22:55] LABS: Hematocrit (blood only) 41.6 % (42-52); Hemoglobin 14.4 g/dL (14.0-18.0); Mean Corpuscular Hemoglobin 29.6 pg (25-34); Mean Corpuscular Hgb Conc 34.6 g/dL (32-36); Mean Corpuscular Volume 85.4 fL (80-100); Mean Platelet Volume 9.7 fL (7.4-10.4); Platelet Count 279 K/uL (130-400); RDW Standard Deviation 46.8 fL (36.4-46.3); Red Blood Count 4.87 M/uL (4.7-6.1); White Blood Count 2.75 K/uL (4.8-10.8)
[2021-09-18 22:55] LABS: Allen Test Pos (Pos)
[2021-09-18 23:00] LABS: Troponin I < 0.03 ng/ml (0-0.04)
[2021-09-18 23:06] LABS: Alanine Aminotransferase 12 U/L (7-52); Albumin Globulin Ratio 0.9 (0.9-2); Albumin Level 2.9 gm/dl (3.4-5.0); Alkaline Phosphatase 58 U/L (34-104); Anion Gap 13 (3-11); Aspartate Aminotransferase 15 U/L (13-39); BUN Creatinine Ratio 26.8 (10-20); Bilirubin,Total 2.4 mg/dl (0.2-1.0); Blood Urea Nitrogen 48 mg/dl (6-23); Calcium 8.2 mg/dl (8.5-10.1); Carbon Dioxide 16 mmol/L (21-32); Chloride 105 mmol/L (98-107); Creatinine Clr Calc Pharmacy 42.2 ml/min; Est GFR (African American) 42.9 ml/min; Globulin 3.1 gm/dl (2.5-4.0); Glucose 149 mg/dl (70-99(Fasting)); Potassium 4.6 mmol/L (3.5-5.1); Sodium 134 mmol/L (136-145)
[2021-09-18] MEDS: LACTATED RINGER'S 1,000 ML IV SCH (23:11)
[2021-09-18] MEDS: SODIUM CHLORIDE 0.9% 1000ML 1,000 ML IV SCH (23:11)
[2021-09-18] MEDS: PIPERACILLIN/TAZOBACTAM 3.375 GM in DEXTROSE 5% 100 ML IV SCH (23:18)
[2021-09-18 23:48] LABS: Appearance Urine Cloudy (Clear); Bacteria Urine Automated Negative (Negative); Bilirubin Urine Negative (Negative); Blood Urine 2+ (Negative); Color Urine Dark Yellow; Epithelial Cell Urine Auto 20-30 /lpf (0-5); Glucose Urine UA Negative (Negative); Ketones Urine Negative (Negative); Leukocyte Esterase Urine Negative (Negative); Nitrite Urine Negative (Negative); Protein Urine Trace (Negative); Specific Gravity Urine 1.019 (1.000-1.030); Urobilinogen Urine Positive (Negative)
[2021-09-18] MEDS ORDERED: SODIUM BICARB 8.4% INJ 50 MEQ/50 ML SYR IV STA (23:56)
[2021-09-18 23:58] LABS: Dohle Bodies 1+; Immature Granulocytes # (auto) 0.03 K/uL (0.00-0.02); Immature Granulocytes % (auto) 1.1 %; Lymphocytes % (auto) 10.9 %; Monocytes # (auto) 0.22 K/uL (0.11-0.59)
[2021-09-19 00:37] LABS: Cast Urine Automated 0 /lpf (0-5); RBC Urine Automated 0-4 /hpf (0-4)
--- NOTE | 2021-09-19 00:50 | Consultation Report ---
DATE OF CONSULTATION: 09/18/2021. CHIEF COMPLAINT: Status post abdominal surgery, hypoxia and agitation. HISTORY OF PRESENT ILLNESS: A 70-year-old male with no significant past medical history except for GERD, Laryngopharyngeal reflux, osteoarthritis of both knees as per Epic, presented to the ER with nausea, vomiting, abdominal pain since last Thursday, and unable to have bowel movement and took some kvid-elr-bsolobj laxatives. Imaging studies revealed perforated viscus with small-bowel obstruction and multiple abdominal abscesses. The patient is status post abdominal surgery, was found to have some inflammation of the appendix and also sigmoid abscess, possibly perforated diverticulum, status post appendectomy and a right-sided drain was placed and is status post colectomy for sigmoid abscess and also has colostomy placed. In the PACU, the patient became agitated and was tachycardic, and he was given A dose of Haldol, currently drowsy, but he is requiring high oxygen, 10-12 liters, then 15 liters. On exam, some mild bibasilar crackles and chest x-ray showed some congestion and given a dose of Lasix and placed on BiPAP, tolerating BiPAP okay, still drowsy, somewhat tachycardic. The patient initially on exam was able to open the eyes on calling, but goes back to sleep, answers by nodding the head. At the time he was denying any abdominal pain or chest pain or any nausea or any headaches, but could not get much history from the patient currently. ALLERGIES: No known drug allergies as per the Epic. PAST MEDICAL HISTORY: As mentioned above. PAST SURGICAL HISTORY: Status post abdominal surgery today. MEDICATIONS: Seems to be on omeprazole, seems to be on Nexium 20 mg p.o. daily. FAMILY HISTORY: Significant for no known problems as per the Epic. SOCIAL HISTORY: . Former smoker, quit in 2016. Smoked 1 pack a day for 39 years. Alcohol as per Epic. No drug use as per Epic. REVIEW OF SYSTEMS: Unobtainable at this time. PHYSICAL EXAMINATION: GENERAL: The patient is drowsy, requiring high oxygen on OxyMask, saturating okay on BiPAP currently. VITAL SIGNS: Temperature 37.6, pulse 117, respiratory rate 18, blood pressure 131/87, oxygen 94% on BiPAP. HEENT: Pupils sluggish to react. Head is atraumatic. NECK: No JVD or neck masses. CARDIOVASCULAR: S1 and S2 heard. Tachycardia. No murmurs. RESPIRATORY SYSTEM: Normal AP diameter. No wheezing. Mild bibasilar crackles. Mild tachypnea. ABDOMEN: Status post appendectomy and sigmoidectomy, status post drain placed on the right side and colostomy on the left side. CENTRAL NERVOUS SYSTEM: Drowsy, opens eyes on calling but goes back to sleep. Currently not obeying any commands. Moves extremities. EXTREMITIES: No edema, no erythema. LABORATORY DATA: Labs from the morning; WBC 8.5, hemoglobin 15.7, hematocrit 45, platelet count 296. PT 11.7, INR 1.1, APTT 28.1. Sodium 134, potassium 4, chloride 100, bicarbonate 22, BUN 50, creatinine 1.6, serum glucose 129, calcium 9.8, total bilirubin 2.5, AST 112, ALT 11, alkaline phosphatase 75. Troponin I less than 0.03. Lipase 9. SARS-CoV-2 rapid test negative. IMAGING: Chest x-ray: Decreased inspiratory effort with linear atelectasis in the left lung base. CT of abdomen and pelvis showing visceral perforation, peritonitis, free air in the anterior abdomen and below the diaphragm. Proximal small bowel loop markedly distended fluid-filled, possible transition point in the distal ileum, this could represent small-bowel obstruction or possibly reactive ileus. Exact site of perforation is unclear and greatest inflammation seen involving the distal terminal ileum, this may represent the site of perforation. Additional potential sites of perforation considered less likely, but include perforated appendicitis or sigmoid diverticulitis. There is gas and fluid containing collection in the central mesentery and along the lateral aspect of the cecum as detailed above. This likely represents developing abscesses, emphysema. EKG: Sinus tachycardia at a rate of 103, QTc 434. ASSESSMENT AND PLAN: This is a 70-year-old male who presents with nausea, vomiting, abdominal pain, and found to have a perforated viscus. 1. Perforated viscus, status post surgery, status post appendectomy and drain placement, and found to have possible sigmoid diverticulitis/abscess, status post colectomy and colostomy in place. We will follow the biopsy results.Allso small-bowel obstruction. On antibiotics, fluids and nasogastric tube as per surgery, closely monitor. 2. Hypoxia. The patient seems to not have much history. Could be from volume overload from the fluids. Possibly post op.Given a dose of Lasix and placed on BiPAP. Follow the response. Chest x-ray possibly with mild congestion. We will also get an echocardiogram. We will follow the repeat laboratories and troponin levels and closely monitor in the telemetry floor.If not improving will consult pulmonary. 3. Agitation, probably from above condition and post op. Received a dose of Haldol. We will closely monitor. 4. History of gastroesophageal reflux disease. On IV Pepcid DVT px as per Surgery. DISPOSITION: Closely monitor in the tele floor. Job ID: [id number] [facility]
[2021-09-19] MEDS: SODIUM CHLORIDE 0.9% 1000ML 1,000 ML IV SCH (01:35)
[2021-09-19] MEDS: MoRPHine SULFATE PCA 30 MG/30 ML IV PRN ×2 (01:35→20:49)
[2021-09-19] MEDS: LACTATED RINGER'S 1,000 ML IV SCH ×3 (04:01→15:22)
[2021-09-19] MEDS ORDERED: HALOPERIDOL LACTATE 5 MG/ML 1 ML VIAL IM STA (04:22)
[2021-09-19] MEDS ORDERED: HALOPERIDOL LACTATE 5 MG/ML 1 ML VIAL ONE (04:25)
[2021-09-19] MEDS ORDERED: ACETAMINOPHEN 1000 MG/100 ML IV IV ONE (04:53)
[2021-09-19] MEDS: ACETAMINOPHEN 1,000 MG/100 ML VIAL IV SCH ×3 (04:57→22:38)
[2021-09-19 05:08] LABS: iSTAT Allen Test Pass; iSTAT Arterial Blood Gas HCO3 17 meg/L (19-24); iSTAT Arterial Blood Gas pCO2 29 mmHg (35-46); iSTAT Arterial Blood Gas pH 7.38 (7.35-7.45); iSTAT Arterial Blood Gas pO2 58 mmHg (80-95); iSTAT Carbon Dioxide 18 mmol/L (24-31); iSTAT Site R Radial
--- NOTE | 2021-09-19 05:24 | Communication Note ---
Date of Service: September 19, 2021 I was called by RN at approximately 4:24 AM regarding patient becoming confused, disoriented, and combative. Notes that patient had a similar episode in the recovery room per patient became combative and uncooperative requiring temporary restraints as well as Haldol. Patient was initially to be placed on MedSurg bed but was transferred to PCU for closer monitoring. I discussed with the nurse and patient was on BiPAP when he became agitated and he pulled out his NG tube and took BiPAP machine apart. Hospitalist was contacted who ordered patient received some Haldol. Time of my arrival to the floor the nurse had not yet given Haldol. She noted that the patient was noting some abdominal pain at his surgical site and so she therefore gave him 1 mg of morphine prior to my arrival. At the time of my arrival the patient was much more calm and cooperative. I was able to converse with the patient and he noted that he did have some abdominal pain but only reported this is a 3 out of 4 in intensity. He said that his breathing felt "good" and he did not report any pleuritic chest pain. According to the RN there is no episodes of nausea or vomiting. RN also notes the patient's systolic blood pressure has been stable running in the 120s to 130s. In addition she reports that he has been running intermittent fevers since surgery. Due to the above events I considered numerous etiologies as the cause of patient's above-noted condition. Considerations included alcohol withdrawal, atrial fibrillation, sepsis, pneumonia, hypercarbia, hypoxia, and other etiologies. Patient notes that he is not a daily drinker of alcohol making alcohol withdrawal less likely. I obtained a 12-lead EKG that showed sinus tachycardia, ruling out atrial fibrillation. There are no findings indicative of acute ischemia on this EKG. I obtained a portable chest x-ray at bedside. This study showed bibasilar atelectasis and appeared similar to chest x-ray that was taken in the recovery room. ABG revealed patient had a pH of 7.37. His PCO2 was 29 thus excluding hypercarbia as a cause of his agitation. PO2 was 58 and bicarb on this was 17. During my visit with the patient his heart rate remained tachycardic in the 1 teens to 120s. His pulse ox was anywhere from 85 to 90% on a 15 L facemask. As the patient was much more calm and cooperative after receiving morphine as noted above I informed him I felt he would benefit from the use of BiPAP. He was placed back on BiPAP by respiratory therapist and his pulse ox katey to 93 to 95%. The remainder of patient's physical exam revealed breath sounds were present bilaterally but shallow. Cardiovascular exam revealed regular rate and rhythm. His extremities did not appear mottled. Patient's abdomen is mildly distended with absent bowel sounds. I discussed with the nurse that she should not get administer Haldol at this time as patient is calm and cooperative. I suggested to her giving his intravenous acetaminophen for pain control as this may help his clinical condition. We will continue monitor closely for the present time.
[2021-09-19 05:51] LABS: Hematocrit (blood only) 41.1 % (42-52); Hemoglobin 13.8 g/dL (14.0-18.0); Mean Corpuscular Hgb Conc 33.6 g/dL (32-36); Mean Corpuscular Volume 86.3 fL (80-100); Mean Platelet Volume 10.1 fL (7.4-10.4); Nucleated RBC # (auto) 0.35 K/uL (0-0); Nucleated RBC % (auto) 6.7 %; Platelet Count 258 K/uL (130-400); RDW Coefficient of Variation 14.9 % (11.5-14.5); RDW Standard Deviation 47.3 fL (36.4-46.3); Red Blood Count 4.76 M/uL (4.7-6.1); White Blood Count 5.26 K/uL (4.8-10.8)
[2021-09-19 06:08] LABS: BUN Creatinine Ratio 22.2 (10-20); Calcium 8.1 mg/dl (8.5-10.1); Creatinine Clr Calc Pharmacy 34.1 ml/min; Est GFR (African American) 33.3 ml/min; Est GFR (Non-African American) 28.7 ml/min; Potassium 4.2 mmol/L (3.5-5.1)
--- NOTE | 2021-09-19 06:47 | XRay Report ---
XR chest 1V portable CLINICAL HISTORY: hypoxia COMPARISON STUDY: Chest radiograph September 18, 2021 at 8:31 PM. FINDINGS: The nasogastric tube has been removed. Lung volumes are diminished. There is no pneumothora x. Trace right pleural effusion is noted. Bilateral mid and lower lung airspace opacities have slight ly progressed. There is no evidence for pulmonary edema. A hiatal hernia is again noted. IMPRESSION: 1. Progression of bilateral mid and lower lung airspace opacities which may reflect consolidation or atelectasis. 2. Trace right pleural effusion. 3. No pneumothorax. ACT 112: Negative or not required by law. Electronically signed by: Esvin Springer M.D. 09/19/2021 6:45 AM
[2021-09-19 06:49] LABS: Basophils # (auto) 0.01 K/uL (0-0.2); Basophils % (auto) 0.2 %; Echinocytes 1+; Eosinophils # (auto) 0.01 K/uL (0-0.5); Eosinophils % (auto) 0.2 %; Immature Granulocytes # (auto) 0.14 K/uL (0.00-0.02); Immature Granulocytes % (auto) 2.7 %; Lymphocytes # (auto) 0.17 K/uL (1.2-3.4); Lymphocytes % (auto) 3.2 %; Monocytes % (auto) 1.9 %; Neutrophils # (auto) 4.83 K/uL (1.4-6.5); Neutrophils % (auto) 91.8 %
--- NOTE | 2021-09-19 07:11 | XRay Report ---
XR chest 1V portable at 8:31 PM CLINICAL HISTORY: hypoxia. COMPARISON STUDY: 09/18/2021 and 10:40 AM TECHNIQUE: 1 view of the chest FINDINGS: Single frontal view of the chest demonstrates the cardiomediastinal silhouette to be within normal li mits. Compared to previous examination, there is again a decreased inspiratory effort with atelectasi s at the left lung base. There has been interval development of mild central vascular congestion. No peripheral interstitial edema is seen. An NG tube has been placed with its tip curled within the kristen eryn fundus. There is no evidence for pleural effusion. There is no evidence for vascular congestion. There is no acute osseous pathology. IMPRESSION: 1. Interval development of central vascular congestion. 2. Left basilar atelectasis is again seen. 3. Interval placement of NG tube. ACT 112: Negative or not required by law. Electronically signed by: Emil Faith M.D. 09/19/2021 7:09 AM
--- NOTE | 2021-09-19 07:44 | Hospitalist Progress Note ---
Date of Service September 19, 2021 Assessment & Plan Admission and Anticipated Discharge Date Admission Date: September 18, 2021 Subjective Addendum to consult note. DANIEL presented with cr 1.6. received a dose of lasix last night. Am labs Cr 2.2. On iv fluids. To avoid nephrotoxic agents. Received a half amp of sodium bicarb for bicarb of 16 on labs. Lactic acid normal at 2.0.ABg ok.Bilirubin 2.4 with normal ast and alt possibly from stress. To follow repeat labs and close monitor. Results & Data Results & Data ([facility]) Vital Signs (Past 12 Hours) Vital Signs Temp Pulse Pulse Pulse Resp BP Pulse Ox 09/19/21 07:31 114 H 20 91 09/19/21 07:29 36.5 C 109 H 17 100/74 93 09/19/21 04:55 127 H 18 94 09/19/21 03:28 37.6 C H 103 H 16 117/79 92 09/19/21 03:19 108 H 20 93 09/19/21 01:40 36.6 C 113 H 18 106/70 91 09/19/21 00:40 36.7 C 117 H 18 120/77 91 09/18/21 23:55 37.0 C 18 94 09/18/21 23:40 37.8 C H 123 H 16 126/76 93 09/18/21 23:10 37.3 C 121 H 16 136/78 94 09/18/21 22:40 37.4 C 117 H 16 131/83 94 09/18/21 22:25 37.6 C H 117 H 18 131/87 94 09/18/21 22:00 95 09/18/21 21:48 124 H 20 93 09/18/21 20:20 36.7 C 114 H 15 115/90 85 L 09/18/21 20:15 107 H 14 128/85 89 L
[2021-09-19] MEDS ORDERED: PNEUMOCOCCAL POLYSACCHARIDES 25 MCG/0.5 ML VIAL/SYR IM ONE (08:00)
[2021-09-19] MEDS ORDERED: INFLUENZA VACCINE HIGH DOSE PF 65+ 0.7 ML SYR IM ONE (08:00)
[2021-09-19] MEDS: FAMOTIDINE 20 MG in SYRINGE 3 ML IV SCH (08:38)
[2021-09-19] MEDS: PIPERACILLIN/TAZOBACTAM 3.375 GM in DEXTROSE 5% 100 ML IV SCH ×3 (08:39→23:41)
--- NOTE | 2021-09-19 11:59 | Surgery Progress Note ---
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 At this point time he is doing as would be expected. Labs reviewed. Pain is currently controlled. No nausea vomiting despite self removing his NG tube. Continue with current care. I would expect several days to regain bowel function. Admission and Anticipated Discharge Date Admission Date: September 18, 2021 Subjective Patient seen. He is awake. He is alert and oriented at this point in time. The events of early this morning were noted. He is not appear to be in pain and is currently not confused. He states currently his pain is reasonably controlled. Physical Exam Physical Exam: Alert and oriented no acute distress Abdomen is soft with mild distention. The stoma is pink and viable. MARHTA drain with a small amount of serous fluid. Clean dressings on his midline incision Results & Data ([facility]) Vital Signs (Past 12 Hours) Vital Signs Temp Pulse Pulse Resp BP BP Pulse Ox 09/19/21 11:29 36.6 C 106 H 16 106/81 96 09/19/21 10:49 106 H 22 97 09/19/21 07:31 114 H 20 91 09/19/21 07:29 36.5 C 109 H 17 100/74 93 09/19/21 06:15 112 H 09/19/21 04:55 127 H 18 94 09/19/21 03:28 37.6 C H 103 H 16 117/79 92 09/19/21 03:19 108 H 20 93 09/19/21 01:40 36.6 C 113 H 18 106/70 91 09/19/21 00:40 36.7 C 117 H 18 120/77 91 PG Care Time/CCT Total # of Minutes Spent Total Time Spent with Patient: Total time spent is greater than 50% in coordination of care (as documented) at patient's floor/unit and/or counseling patient: Coding Level of Care Code None Diagnoses SBO (small bowel obstruction) K56.609 Bowel perforation K63.1 Intra-abdominal abscess K65.1 H/O exploratory laparotomy Z98.890
--- NOTE | 2021-09-19 14:36 | Communication Note ---
Date of Service: September 19, 2021 Consult done earlier today by Dr Alonzo, see his note for details. Patient was seen and examined at bedside. On bipap and ASSISTANT CENTER MANAGER morphine pump. He is calm, c ooperative, following commands and answers appropriately; although speech not entirely clear due to being on bipap. States pain is 2/10. Denies any nausea or vomiting. No chest pain or shortness of breath. Abdominal incision wound clean, dry intact, pen katey drain in place, MARTHA drain with serosanguineous output, Colostomy in place. Management of perforated viscus and abscess and post op management per primary team. On zosyn per primary team. Unclear cause of his hypoxia- TTE pending, chest exam seems clear on exam today but he did receive a dose of lasix already, ?pulmonary edema vs atelectasia. Antibiotics should cover any possible pneumonia. ABG reviewed. If does not improve, consider CT chest to r/o PE although low in differential now and even DANIEL and recent contrast precludes any more contrast at this juncture. DANIEL likely from hemodynamic insult, too soon for contrast nephropathy. Avoid NSAIDs and nephrotoxics. Recheck in am.
--- NOTE | 2021-09-19 21:48 | Electrocardiogram Report ---
Test Reason : Blood Pressure : / mmHG Vent. Rate : 126 BPM Atrial Rate : 126 BPM P-R Int : 176 ms QRS Dur : 088 ms QT Int : 306 ms P-R-T Axes : 046 010 034 degrees QTc Int : 443 ms Sinus tachycardia Otherwise normal ECG When compared with ECG of 18-SEP-2021 10:34, Nonspecific T wave abnormality now evident in Inferior leads Confirmed by Gian Nascimento ([id number]) on 09/19/2021 9:47:54 PM Referred By: Baldo Maldonado Confirmed By:Gian Nascimento
[2021-09-20] MEDS: LACTATED RINGER'S 1,000 ML IV SCH ×3 (00:54→18:11)
[2021-09-20] MEDS: ACETAMINOPHEN 1,000 MG/100 ML VIAL IV SCH ×3 (06:04→21:27)
[2021-09-20 06:21] LABS: Hematocrit (blood only) 36.3 % (42-52); Hemoglobin 11.9 g/dL (14.0-18.0); Mean Corpuscular Hgb Conc 32.8 g/dL (32-36); Mean Corpuscular Volume 88.3 fL (80-100); Mean Platelet Volume 9.8 fL (7.4-10.4); Platelet Count 243 K/uL (130-400); RDW Coefficient of Variation 15.4 % (11.5-14.5); RDW Standard Deviation 49.8 fL (36.4-46.3); Red Blood Count 4.11 M/uL (4.7-6.1); White Blood Count 11.32 K/uL (4.8-10.8)
[2021-09-20] MEDS: PIPERACILLIN/TAZOBACTAM 3.375 GM in DEXTROSE 5% 100 ML IV SCH ×3 (06:25→23:48)
[2021-09-20 06:40] LABS: BUN Creatinine Ratio 28.6 (10-20); Calcium 8.1 mg/dl (8.5-10.1); Creatinine Clr Calc Pharmacy 41.5 ml/min; Est GFR (African American) 42.1 ml/min; Est GFR (Non-African American) 36.3 ml/min; Phosphorus 3.4 mg/dl (2.5-4.9); Potassium 4.3 mmol/L (3.5-5.1)
[2021-09-20 06:49] LABS: ANC (manual) 10.03 K/uL (1.4-6.5); Dohle Bodies 1+; Eosinophils % (manual) 3.5 %; Lymphocytes % (manual) 4.4 %; Monocytes % (manual) 3.5 %; Neutrophils # (manual) 10.03 K/uL (1.4-6.5); Neutrophils % (manual) 88.6 %; Toxic Granulation 1+
--- NOTE | 2021-09-20 08:31 | Surgery Progress Note ---
Date of Service September 20, 2021 Assessment & Plan (1) Bowel perforation: Plan: POD 2 [facility] WBC 11, afebrile for 24 hours, continue Zosyn can have sips leave pugh for today OOB/PT seen with Dr. Soliman as above. doing as expected. will try clears. PT consult. wound looks good. no bowel fx yet [facility] covering for weekend. Admission and Anticipated Discharge Date Admission Date: September 18, 2021 Subjective feels about the same as yesterday, not OOB, pain control adequate Physical Exam Respiratory: normal respiratory effort, lungs clear to auscultation Gastrointestinal (Abdomen): Inspection/Auscultation: + abdomen distended (minimal), + abdominal surgical incision (clean, minimal negro drainage) and + abdominal surgical drain present (25 cc overnight, mostly serous) Percu ssion/Palpation: abdomen soft ostomy viable but no air or stool yet Results & Data ([facility]) Vital Signs (Past 12 Hours) Vital Signs Temp Pulse Pulse Resp BP BP Pulse Ox 09/20/21 07:37 36.4 C L 102 H 19 126/75 96 09/20/21 03:32 36.7 C 103 H 19 110/73 95 09/20/21 00:32 104 H 09/19/21 22:35 36.5 C 103 H 16 130/78 96 PG Care Time/CCT Total # of Minutes Spent Total Time Spent with Patient: Total time spent is greater than 50% in coordination of care (as documented) at patient's floor/unit and/or counseling patient: Coding Level of Care Code None Diagnoses Bowel perforation K63.1
[2021-09-20] MEDS: FAMOTIDINE 20 MG in SYRINGE 3 ML IV SCH (09:07)
[2021-09-20] MEDS: SODIUM CHLORIDE 0.9% 1000ML 1,000 ML IV SCH (10:53)
--- NOTE | 2021-09-20 17:18 | Hospitalist Progress Note ---
Date of Service September 20, 2021 Assessment & Plan (1) Bowel perforation: (2) SBO (small bowel obstruction): (3) Intra-abdominal abscess: Plan: 70 year old male who presented to the ED with nausea, vomiting abdominal pain and found to have perforated viscus. Bowel perforation with intraabdominal abscess and SBO- CT A/P reviewed. S/p [facility] procedure 09/18, management per surgical team. On iv zosyn. Diet, activities, DVT prophylaxis, pain management per surgical team. Follow up on clx results Acute hypoxic respiratory failure- Previously on bipap, now improving. Now on NC, weaning down currently at 6L. TTE with normal right and left sided function. CXR 09/19 reviewed but already on zosyn. S/p 1 dose of lasix 09/19. Doesn't seem volume overloaded on exam. Recommend incentive spirometry and OOB activities and cut down on opiates Agitation on admission- resolved. No evidence of metabolic encephalopathy after discussion with patient about the event. States it was trust issue, given his personality. Avoid any antipsychotics if possible. DANIEL- Unknown baseline, Cr improving. On presentation 1.65, Peaked to 2.2 and now down to 1.8. Avoid nephrotoxics and NSAIDs. Agree with gentle hydration. Recheck in am. DVT prophylaxis- recommend sc heparin when okay from surgical perspective- Defer to primary team GI prophylaxis- on pepcid Dispo- per primary team Admission and Anticipated Discharge Date Admission Date: September 18, 2021 Subjective Seen and examined at bedside. States he is feeling better. States he remembers everything that happened and he was able to tell me in detail. States he does not like hospitals or doctors but here he is and he had trust issues resulting into his agitation. It is better now. Pain is controlled. Tolerating sips of liquids. No nausea or vomiting. Off of bipap and now on NC, weaning down. He was very emotional when talking to me all these issues and asked if that is a normal reaction. Physical Exam Physical Exam: General: Sitting comfortably in bed, not in distress, on room air HEENT: EOMI, WILLIAM, MMM Chest: Fair breath sounds bilaterally, no wheezes or crackles CVS: Regular rate and rhythm, normal heart sounds, no murmur Abdomen: Midline abdominal incision wound with packing with pen katey- clean dry intact, MARTHA drain with serosanguineous discharge, Left sided colostomy Neuro: Awake, alert, oriented, conversing well, non focal Extremities: No cyanosis, clubbing or edema Results & Data Results & Data ([facility]) Vital Signs (Past 12 Hours) Vital Signs Temp Pulse Pulse Resp BP BP Pulse Ox 09/20/21 15:19 36.7 C 103 H 20 135/78 93 09/20/21 14:59 103 H 09/20/21 10:57 36.7 C 107 H 20 104/70 93 09/20/21 09:19 102 H 09/20/21 07:37 36.4 C L 102 H 19 126/75 96 Laboratory Results Short CBC 09/20/21 Range/Units 05:27 WBC 11.32 H (4.8-10.8) K/uL Hgb 11.9 L (14.0-18.0) g/dL Hct 36.3 L (42-52) % Plt Count 243 (130-400) K/uL BMP 09/20/21 05:27 Sodium 140 Potassium 4.3 Chloride 107 Carbon Dioxide 26 BUN 52 H Creatinine 1.82 H D Glucose 98 Calcium 8.1 L Medications Administered Current Inpatient Medications Hydromorphone HCl (Hydromorphone Inj 1 Mg/Ml Syringe) 1 mg IV Q2H PRN PRN Reason: Pain Stop: 10/02/21 23:26 Last Admin: 09/19/21 01:10 Dose: 1 mg Documented by: Lactated Ringer's (Lr) 1,000 mls @ 125 mls/hr IV .Q8H MINNIE Stop: 10/18/21 21:15 Last Admin: 09/20/21 10:52 Dose: 125 mls/hr Documented by: Famotidine 20 mg/ Syringe 5 mls @ 2.5 mls/min IV DAILY MINNIE Stop: 10/19/21 08:59 Last Admin: 09/20/21 09:07 Dose: 2.5 mls/min Documented by: Acetaminophen (Ofirmev) 1,000 mg in 100 mls @ 400 mls/hr IV Q8H MINNIE Stop: 09/22/21 05:59 Last Infusion: 09/20/21 14:27 Dose: Infused Documented by: Piperacillin Sod/Tazobactam (Sod 3.375 gm/ Dextrose) 115 mls @ 28.75 mls/hr IV Q8H MINNIE; Protocol Stop: 09/28/21 22:59 Last Admin: 09/20/21 14:12 Dose: 28.8 mls/hr Documented by: Sodium Chloride (Nss 1000ml) 1,000 mls @ 15 mls/hr IV .Q24H MINNIE Stop: 10/02/21 21:16 Last Admin: 09/20/21 10:53 Dose: 15 mls/hr Documented by: Miscellaneous Information (Piperacill/Tazobac Consult Active) 1 ea N/A UD PRN PRN Reason: Consult Stop: 10/18/21 21:15 Morphine Sulfate (Morphine Sulfate Tube Laser Operator 30 Mg/30 Ml) 30 mg IV PRN PRN; Protocol PRN Reason: GEOLOGY INSTRUCTOR Pain Titration Stop: 10/02/21 21:15 Last Admin: 09/19/21 20:49 Dose: 30 mg Documented by: Naloxone HCl (Naloxone Hcl 0.4 Mg/1 Ml Vial/Carp) 0.1 mg IV Q5M PRN; Protocol PRN Reason: Oversedation/Resp Depression Stop: 10/02/21 21:15 Ondansetron HCl (Ondansetron Inj 2 Mg/Ml 2 Ml Vial) 4 mg IV Q4H PRN PRN Reason: Nausea And Vomiting Stop: 10/18/21 21:15
[2021-09-21] MEDS: LACTATED RINGER'S 1,000 ML IV SCH (02:05)
[2021-09-21] MEDS: MoRPHine SULFATE PCA 30 MG/30 ML IV PRN (04:12)
[2021-09-21 06:23] LABS: Hematocrit (blood only) 33.7 % (42-52); Hemoglobin 11.1 g/dL (14.0-18.0); Mean Corpuscular Hemoglobin 28.6 pg (25-34); Mean Corpuscular Hgb Conc 32.9 g/dL (32-36); Mean Corpuscular Volume 86.9 fL (80-100); Mean Platelet Volume 9.5 fL (7.4-10.4); Nucleated RBC # (auto) 0.02 K/uL (0-0); Nucleated RBC % (auto) 0.2 %; Platelet Count 270 K/uL (130-400); RDW Coefficient of Variation 15.6 % (11.5-14.5); RDW Standard Deviation 49.5 fL (36.4-46.3); Red Blood Count 3.88 M/uL (4.7-6.1); White Blood Count 11.76 K/uL (4.8-10.8)
[2021-09-21] MEDS: ACETAMINOPHEN 1,000 MG/100 ML VIAL IV SCH ×3 (06:34→20:52)
[2021-09-21 06:51] LABS: BUN Creatinine Ratio 29.1 (10-20); Creatinine Clr Calc Pharmacy 68.6 ml/min; Est GFR (African American) 77.3 ml/min; Est GFR (Non-African American) 66.7 ml/min; Potassium 4.1 mmol/L (3.5-5.1)
[2021-09-21] MEDS: PIPERACILLIN/TAZOBACTAM 3.375 GM in DEXTROSE 5% 100 ML IV SCH (07:25)
[2021-09-21 08:08] LABS: ALC (manual) 1.09 K/uL (1.2-3.4); ANC (manual) 10.07 K/uL (1.4-6.5); Dohle Bodies 2+; Eosinophils % (manual) 1.7 %; Lymphocytes # (manual) 1.09 K/uL (1.2-3.4); Lymphocytes % (manual) 9.3 %; Monocytes % (manual) 3.4 %; Neutrophils # (manual) 10.07 K/uL (1.4-6.5); Neutrophils % (manual) 85.6 %; Toxic Granulation 1+
[2021-09-21] MEDS: FAMOTIDINE 20 MG in SYRINGE 3 ML IV SCH (08:30)
--- NOTE | 2021-09-21 12:52 | Surgery Progress Note ---
Date of Service September 21, 2021 Assessment & Plan (1) H/O exploratory laparotomy: Plan: POD #3 not ambulating well yet con't pugh till tomorrow full liquids changed zosyn to unasyn; augmentin likely thursday if continues to do well Admission and Anticipated Discharge Date Admission Date: September 18, 2021 Subjective pain controlled with CHICKEN CUTTER changed abx per pharmacy taking po well ambulating not well yet Review of Systems Constitutional: no fever and no chills Respiratory: no cough and no dyspnea Cardiovascular: no chest pain Gastrointestinal: + abdominal pain; no nausea and no vomiting Genitourinary: no dysuria Physical Exam Constitutional: WD/WN, vitals as above Eyes: PERRL, conjunctivae normal, anicteric sclerae ENMT: external ear and nose normal, oropharynx normal Neck: trachea midline Respiratory: normal respiratory effort, lungs clear to auscultation Cardiovascular: RRR, no murmur, no edema Gastrointestinal (Abdomen): Inspection/Auscultation: abdomen normal to inspection and normal bowel sounds; abdomen not distended Percussion/Palpatio n: + abdomen tender and abdomen soft colostomy pink and some function in bag Musculoskeletal: Head/Neck/Chest: normocephalic and head atraumatic Results & Data ([facility]) Vital Signs (Past 12 Hours) Vital Signs Temp Pulse Resp BP BP Pulse Ox 09/21/21 12:05 36.6 C 93 H 18 146/90 H 93 09/21/21 08:04 37.2 C 101 H 18 146/79 H 94 09/21/21 03:49 36.7 C 104 H 19 117/72 92 09/21/21 01:12 36.3 C L 102 H 24 164/95 H 91
[2021-09-21] MEDS ORDERED: MoRPHine SULFATE 2 MG/ML CARP IV PRN (12:56)
[2021-09-21] MEDS ORDERED: MoRPHine SULFATE 4 MG/ML 1 ML CARP\\VIAL IV PRN (12:56)
[2021-09-21] MEDS ORDERED: MELATONIN 3 MG TAB PO PRN (15:50)
--- NOTE | 2021-09-21 15:57 | Hospitalist Progress Note ---
Date of Service September 21, 2021 Assessment & Plan (1) Bowel perforation: (2) SBO (small bowel obstruction): (3) Intra-abdominal abscess: Plan: 70 year old male who presented to the ED with nausea, vomiting abdominal pain and found to have perforated viscus. Bowel perforation with intraabdominal abscess and SBO- CT A/P reviewed. S/p [facility] procedure 09/18, OR culture growing Ecoli, Strep and bacteroides sensitive to Unasyn; ABx deescalated to Unasyn per primary team from zosyn.. Diet, activities, DVT prophylaxis, pain management per surgical team. Acute hypoxic respiratory failure- Previously on bipap, now improving. Now on NC, weaning down currently at 6L. TTE with normal right and left sided function. CXR 09/19 reviewed but already on zosyn. S/p 1 dose of lasix 09/19. Doesn't seem volume overloaded on exam. Recommend incentive spirometry and OOB activities and cut down on opiates Agitation on admission- resolved. No evidence of metabolic encephalopathy after discussion with patient about the event. States it was trust issue, given his personality. Avoid any antipsychotics if possible. DANIEL- resolved, Cr on presentation 1.65, Peaked to 2.2 and now down to 1.1. Avoid nephrotoxics and NSAIDs. DVT prophylaxis- recommend sc heparin when okay from surgical perspective- Defer to primary team GI prophylaxis- on pepcid Dispo- per primary team Admission and Anticipated Discharge Date Admission Date: September 18, 2021 Subjective Seen and examined at bedside. Feels better from yesterday. No new issues. Pain controlled on GEOLOGICAL TECHNICAL OFFICER pump. States it hurts when coughing or laughing. Tolerating clears. Burping intermittently. Colostomy with loose stool. Breathing about the same, denies any shortness of breath. States not able to sleep at night and agreeable to try melatonin. Physical Exam Physical Exam: General: Sitting comfortably in bed, not in distress, on room air HEENT: EOMI, WILLIAM, MMM Chest: Fair breath sounds bilaterally, no wheezes or crackles CVS: Regular rate and rhythm, normal heart sounds, no murmur Abdomen: Midline abdominal incision wound with packing with pen katey- clean dry intact, MARTHA drain with serosanguineous discharge, Left sided colostomy with loose stool Neuro: Awake, alert, oriented, conversing well, non focal Extremities: No cyanosis, clubbing or edema Results & Data Results & Data ([facility]) Vital Signs (Past 12 Hours) Vital Signs Temp Pulse Resp BP BP Pulse Ox Pulse Ox 09/21/21 15:30 36.9 C 100 H 18 157/92 H 92 09/21/21 14:51 95 09/21/21 12:05 36.6 C 93 H 18 146/90 H 93 09/21/21 08:04 37.2 C 101 H 18 146/79 H 94 09/21/21 03:49 36.7 C 104 H 19 117/72 92 Pulse Ox Pulse Ox 09/21/21 15:30 09/21/21 14:51 95 88 L 09/21/21 12:05 09/21/21 08:04 09/21/21 03:49
[2021-09-21] MEDS: AMPICILLIN/SULBACTAM SOD 3,000 MG in 0.9 % SODIUM CHLORIDE 100 ML IV SCH ×2 (16:10→20:52)
[2021-09-22] MEDS: AMPICILLIN/SULBACTAM SOD 3,000 MG in 0.9 % SODIUM CHLORIDE 100 ML IV SCH ×4 (03:40→22:59)
[2021-09-22] MEDS: LACTATED RINGER'S 1,000 ML IV SCH ×3 (05:14→20:32)
[2021-09-22 07:19] LABS: Hematocrit (blood only) 36.7 % (42-52); Hemoglobin 12.3 g/dL (14.0-18.0); Mean Corpuscular Hemoglobin 29.2 pg (25-34); Mean Corpuscular Hgb Conc 33.5 g/dL (32-36); Mean Corpuscular Volume 87.2 fL (80-100); Mean Platelet Volume 9.8 fL (7.4-10.4); Platelet Count 321 K/uL (130-400); RDW Coefficient of Variation 15.4 % (11.5-14.5); RDW Standard Deviation 48.8 fL (36.4-46.3); Red Blood Count 4.21 M/uL (4.7-6.1); White Blood Count 17.07 K/uL (4.8-10.8)
[2021-09-22 07:42] LABS: Basophils # (auto) 0.06 K/uL (0-0.2); Basophils % (auto) 0.4 %; Eosinophils # (auto) 0.12 K/uL (0-0.5); Eosinophils % (auto) 0.7 %; Immature Granulocytes # (auto) 1.22 K/uL (0.00-0.02); Immature Granulocytes % (auto) 7.1 %; Lymphocytes # (auto) 1.06 K/uL (1.2-3.4); Lymphocytes % (auto) 6.2 %; Monocytes # (auto) 1.11 K/uL (0.11-0.59); Monocytes % (auto) 6.5 %; Neutrophils % (auto) 79.1 %
[2021-09-22 07:55] LABS: BUN Creatinine Ratio 22.1 (10-20); Calcium 8.1 mg/dl (8.5-10.1); Creatinine Clr Calc Pharmacy 79.4 ml/min; Est GFR (African American) 100.4 ml/min; Est GFR (Non-African American) 86.6 ml/min; Potassium 3.7 mmol/L (3.5-5.1)
[2021-09-22] MEDS: FAMOTIDINE 20 MG in SYRINGE 3 ML IV SCH (08:35)
--- NOTE | 2021-09-22 08:59 | Surgery Progress Note ---
Date of Service September 22, 2021 Assessment & Plan (1) H/O exploratory laparotomy: Plan: some confusion this AM con't sips IVF at 75cc/hr good UOP; remove pugh ambulate Present on Admission?: Yes Admission and Anticipated Discharge Date Admission Date: September 18, 2021 Subjective some confusion this AM some gas in colostomy bag only OOB to chair yesterday Review of Systems Constitutional: no fever and no chills Respiratory: no cough Cardiovascular: no chest pain Gastrointestinal: + abdominal pain and + belching; no nausea and no vomiting Genitourinary: no dysuria Psychiatric: + confusion Physical Exam Constitutional: well developed and well nourished Neck: trachea midline Respiratory: normal respiratory effort, lungs clear to auscultation Cardiovascular: RRR, no murmur, no edema Gastrointestinal (Abdomen): Inspection/Auscultation: abdomen normal to inspection, + abdomen distended and normal bowel sounds Percussion/Palpation: + abdomen tender (mild incisional) and abdomen soft Musculoskeletal: Head/Neck/Chest: normocephalic and head atraumatic Results & Data ([facility]) Vital Signs (Past 12 Hours) Vital Signs Temp Pulse Pulse Resp BP Pulse Ox 09/22/21 07:00 36.7 C 74 18 142/69 H 96 09/22/21 03:25 36.9 C 88 18 147/83 H 96 09/22/21 00:00 87 09/21/21 23:21 37.0 C 85 18 166/94 H 96
--- NOTE | 2021-09-22 10:33 | XRay Report ---
KUB CLINICAL HISTORY: Nausea and vomiting. Recent abdominal surgery. COMPARISON STUDY: CT of the abdomen and pelvis September 18, 2021. FINDINGS: Laparotomy skin dileep are noted as well as a Ashleigh drain. An additional pelvic drain is in place. Numerous loops of moderately dilated small bowel are again noted. Small bowel dilatation i s similar to prior exam. Gas within portions of the colon is present. Pelvic calcifications represent phleboliths. Incidental note is made of severe osteoarthritis of the right hip. IMPRESSION: Numerous loops of moderately dilated small bowel, similar to CT of September 18, 2021. Given recent surgery, an ileus is favored however a small bowel obstruction could appear similar. ACT 112: Negative or not required by law. Electronically signed by: Esvin Springer M.D. 09/22/2021 10:31 AM
--- NOTE | 2021-09-22 14:50 | Hospitalist Progress Note ---
Date of Service September 22, 2021 Assessment & Plan (1) Bowel perforation: (2) SBO (small bowel obstruction): (3) Intra-abdominal abscess: Plan: 70 year old male who presented to the ED with nausea, vomiting abdominal pain and found to have perforated viscus. Bowel perforation with intraabdominal abscess and SBO- CT A/P reviewed. S/p [facility] procedure 09/18, OR culture growing Ecoli, Strep and bacteroides sensitive to Unasyn; ABx deescalated to Unasyn per primary team from zosyn. Diet, activities, DVT prophylaxis, pain management per surgical team. Abdominal x-ray this morning shows possible ileus versus SBO-management per surgical team. WBC increasing- monitor. Acute hypoxic respiratory failure- Previously on bipap, now stable at 6 L NC, weaning down as tolerated. TTE with normal right and left sided function. CXR 09/19 reviewed but already on antibiotics. S/p 1 dose of lasix 09/19. Doesn't seem volume overloaded on exam. Recommend incentive spirometry and OOB activities and cut down on opiates Agitation on admission- resolved. No evidence of metabolic encephalopathy after discussion with patient about the event. States it was trust issue, given his personality. Avoid any antipsychotics if possible. DANIEL- resolved, Cr on presentation 1.65, Peaked to 2.2 and now down to 0.86. Avoid nephrotoxics and NSAIDs. DVT prophylaxis- recommend chemoprophylaxis when okay from surgical perspective- Tigertexted primary team GI prophylaxis- on pepcid Dispo- per primary team Admission and Anticipated Discharge Date Admission Date: September 18, 2021 Subjective Patient seen and examined bedside. Had 4 episodes of vomiting last night and episode of vomiting this morning. Made n.p.o. overnight. Denies any increased abdominal distention or pain. Breathing about the same. No new issues. Physical Exam Physical Exam: General: Sitting comfortably in bed, not in distress, on room air HEENT: EOMI, WILLIAM, MMM Chest: Fair breath sounds bilaterally, no wheezes or crackles CVS: Regular rate and rhythm, normal heart sounds, no murmur Abdomen: Midline abdominal incision wound with packing with pen katey- clean dry intact, MARTHA drain with serosanguineous discharge, Left sided colostomy with loose stool Neuro: Awake, alert, oriented, conversing well, non focal Extremities: No cyanosis, clubbing or edema Results & Data Results & Data ([facility]) Vital Signs (Past 12 Hours) Vital Signs Temp Pulse Pulse Resp BP Pulse Ox 09/22/21 11:58 36.4 C L 80 18 139/62 97 09/22/21 08:00 87 09/22/21 07:00 36.7 C 74 18 142/69 H 96 09/22/21 03:25 36.9 C 88 18 147/83 H 96 Laboratory Results Short CBC 09/22/21 Range/Units 06:57 WBC 17.07 H (4.8-10.8) K/uL Hgb 12.3 L (14.0-18.0) g/dL Hct 36.7 L (42-52) % Plt Count 321 (130-400) K/uL BMP 09/22/21 06:57 Sodium 140 Potassium 3.7 Chloride 105 Carbon Dioxide 24 BUN 19 Creatinine 0.86 Glucose 93 Calcium 8.1 L Diagnostic Findings KUB X-Ray 09/22/21 06:29 KUB CLINICAL HISTORY: Nausea and vomiting. Recent abdominal surgery. COMPARISON STUDY: CT of the abdomen and pelvis September 18, 2021. FINDINGS: Laparotomy skin dileep are noted as well as a Ashleigh drain. An additional pelvic drain is in place. Numerous loops of moderately dilated small bowel are again noted. Small bowel dilatation is similar to prior exam. Gas within portions of the colon is present. Pelvic calcifications represent phleboliths. Incidental note is made of severe osteoarthritis of the right hip. IMPRESSION: Numerous loops of moderately dilated small bowel, similar to CT of September 18, 2021. Given recent surgery, an ileus is favored however a small bowel obstruction could appear similar. ACT 112: Negative or not required by law. Electronically signed by: Esvin Springer M.D. 09/22/2021 10:31 AM Medications Administered Current Inpatient Medications Lactated Ringer's (Lr) 1,000 mls @ 115 mls/hr IV .Q8H42M MINNIE Stop: 10/18/21 21:15 Last Admin: 09/22/21 12:34 Dose: 75 mls/hr Documented by: Famotidine 20 mg/ Syringe 5 mls @ 2.5 mls/min IV DAILY MINNIE Stop: 10/19/21 08:59 Last Admin: 09/22/21 08:35 Dose: 2.5 mls/min Documented by: Ampicillin Sodium/Sulbactam Sodium 3,000 mg/ Sodium Chloride 108 mls @ 216 mls/ hr IV Q6H [facility] [place]; Protocol Stop: 10/01/21 14:59 Last Infusion: 09/22/21 11:54 Dose: Infused Documented by: Melatonin (Melatonin 3 Mg Tab) 3 mg PO HS PRN PRN Reason: Sleep Stop: 10/21/21 15:49 Morphine Sulfate (Morphine Sulfate 2 Mg/Ml Carp) 2 mg IV Q4HWA PRN PRN Reason: Pain 1-5 Stop: 10/05/21 12:55 Morphine Sulfate (Morphine Sulfate 4 Mg/Ml 1 Ml Carp\Vial) 4 mg IV Q4 PRN PRN Reason: Pain 6-10 Stop: 10/05/21 12:55 Naloxone HCl (Naloxone Hcl 0.4 Mg/1 Ml Vial/Carp) 0.1 mg IV Q5M PRN; Protocol PRN Reason: Oversedation/Resp Depression Stop: 10/02/21 21:15 Ondansetron HCl (Ondansetron Inj 2 Mg/Ml 2 Ml Vial) 4 mg IV Q4H PRN PRN Reason: Nausea And Vomiting Stop: 10/18/21 21:15
[2021-09-22] MEDS ORDERED: HALOPERIDOL LACTATE 5 MG/ML 1 ML VIAL ONE (20:50)
[2021-09-22] MEDS ORDERED: HALOPERIDOL LACTATE 5 MG/ML 1 ML VIAL IM STA (21:42)
[2021-09-22] MEDS ORDERED: HALOPERIDOL LACTATE 5 MG/ML 1 ML VIAL IM ONE ×2 (21:50)
[2021-09-22] MEDS: HEPARIN SOD 5,000 UNIT/0.5 ML VIAL SQ SCH (23:00)
[2021-09-23] MEDS: AMPICILLIN/SULBACTAM SOD 3,000 MG in 0.9 % SODIUM CHLORIDE 100 ML IV SCH ×4 (03:16→20:08)
[2021-09-23] MEDS: LACTATED RINGER'S 1,000 ML IV SCH ×3 (07:40→20:08)
[2021-09-23 07:42] LABS: Hematocrit (blood only) 40.2 % (42-52); Hemoglobin 12.7 g/dL (14.0-18.0); Mean Corpuscular Hemoglobin 28.5 pg (25-34); Mean Corpuscular Hgb Conc 31.6 g/dL (32-36); Mean Corpuscular Volume 90.3 fL (80-100); Mean Platelet Volume 9.8 fL (7.4-10.4); Platelet Count 303 K/uL (130-400); RDW Standard Deviation 52.3 fL (36.4-46.3); Red Blood Count 4.45 M/uL (4.7-6.1); White Blood Count 11.79 K/uL (4.8-10.8)
[2021-09-23 08:03] LABS: Creatinine Clr Calc Pharmacy 86.7 ml/min; Est GFR (Non-African American) 89.7 ml/min; Potassium 3.5 mmol/L (3.5-5.1)
[2021-09-23 08:05] LABS: Basophils # (auto) 0.33 K/uL (0-0.2); Basophils % (auto) 2.8 %; Eosinophils % (auto) 0.8 %; Immature Granulocytes # (auto) 0.95 K/uL (0.00-0.02); Immature Granulocytes % (auto) 8.1 %; Lymphocytes # (auto) 1.02 K/uL (1.2-3.4); Lymphocytes % (auto) 8.7 %; Monocytes # (auto) 1.95 K/uL (0.11-0.59); Monocytes % (auto) 16.5 %; Neutrophils # (auto) 7.44 K/uL (1.4-6.5); Neutrophils % (auto) 63.1 %; Target Cells 1+
--- NOTE | 2021-09-23 08:16 | Surgery Progress Note ---
Date of Service September 23, 2021 Assessment & Plan (1) H/O exploratory laparotomy: Plan: post op exlap with hartmanns for perforated diverticulitis WBC 11, Hbg stable. On 6L O2 Pt with emesis yesterday and KUB revealed ileus. going slow with oral intake currently on sips/chips. Abdomen softly distended. Incision c/d/i with midlines dileep/negro. MARTHA drain serosang PT/OT, incentive spirometry, oob as tolerates Appreciate hospitalists assistance with pt. Had periods of agitation overnight requiring haldol. off restraints this AM as above. pt seen. some mild confustion ( when discussing with his , she states he gets this at home too...mostly in the mornings. stoma looks good. scant output. incision looks good. MARTHA serous. abdomen distended.... had bowel obstruction at admission...awaiting return to normal....this was expected... if no improvement in bowel function in the next day or so will start some IV nutrition. discussed care with his this AM. Admission and Anticipated Discharge Date Admission Date: September 18, 2021 Subjective Patient is resting in bed, eyes closed but communicable with me. Says he feels rough, when asked in what way he says tired. He currently denies nausea and pain manageable this AM. Physical Exam Physical Exam: sleepy Gastrointestinal (Abdomen): Inspection/Auscultation: + abdomen distended (mild), + abdominal surgical incision (c/d/i with dileep/negro) and + abdominal surgical drain present (serosang) Percussion/Palpation: abdomen soft; abdomen nontender + ostomy with no current output Results & Data ([facility]) Vital Signs (Past 12 Hours) Vital Signs Temp Pulse Pulse Resp BP Pulse Ox 09/23/21 03:46 36.8 C 84 18 134/81 97 09/22/21 23:43 36.8 C 90 18 149/83 H 94 09/22/21 22:22 88 PG Care Time/CCT Total # of Minutes Spent Total Time Spent with Patient: Total time spent is greater than 50% in coordination of care (as documented) at patient's floor/unit and/or counseling patient: Coding Level of Care Code None Diagnoses H/O exploratory laparotomy Z98.890
[2021-09-23] MEDS: HEPARIN SOD 5,000 UNIT/0.5 ML VIAL SQ SCH ×2 (08:29→20:06)
[2021-09-23] MEDS: FAMOTIDINE 20 MG in SYRINGE 3 ML IV SCH (08:33)
[2021-09-23] MEDS ORDERED: ACETAMINOPHEN 325 MG TAB PO PRN (09:17)
--- NOTE | 2021-09-23 14:31 | Hospitalist Progress Note ---
Date of Service September 23, 2021 Assessment & Plan (1) Bowel perforation: (2) SBO (small bowel obstruction): (3) Intra-abdominal abscess: Plan: 70 year old male who presented to the ED with nausea, vomiting abdominal pain and found to have perforated viscus. Bowel perforation with intraabdominal abscess and SBO- CT A/P reviewed. S/p Eagle's procedure 09/18, OR culture growing Ecoli, Strep and bacteroides sensitive to Unasyn; ABx deescalated to Unasyn per primary team from zosyn. Diet, activities, DVT prophylaxis, pain management per surgical team. Postop ileus-management per surgical team. Acute hypoxic respiratory failure- Previously on bipap, now stable at 6 L NC, wean down as tolerated. Goal saturation >92%. TTE with normal right and left sided function. Doesn't seem volume overloaded on exam. Recommend incentive spirometry and OOB activities and cut down on opiates Delirium-better this morning. Continue supportive measures, delirium precautions, decrease interruption and intervention at night to allow proper rest and sleep. DANIEL- resolved, Cr on presentation 1.65, Peaked to 2.2 and now down to 0.8. Avoid nephrotoxics and NSAIDs. DVT prophylaxis- sc heparin GI prophylaxis- on pepcid Dispo- per primary team Admission and Anticipated Discharge Date Admission Date: September 18, 2021 Subjective Patient was seen and examined at bedside. Overnight events noted, he was in delirium, he required restraints and Haldol. Currently he is awake alert oriented x3 but not as awake and responsive as yesterday. He does not recall events from last night. Denies any chest pain or shortness of breath, nausea or vomiting. Physical Exam Physical Exam: General: Sitting comfortably in bed, not in distress, on room air HEENT: EOMI, WILLIAM, MMM Chest: Fair breath sounds bilaterally, no wheezes or crackles CVS: Regular rate and rhythm, normal heart sounds, no murmur Abdomen: Midline abdominal incision wound with packing with pen katey- clean dry intact, MARTHA drain with serosanguineous discharge, Left sided colostomy Neuro: Awake, alert, oriented, conversing ok, non focal Extremities: No cyanosis, clubbing or edema Results & Data Results & Data ([facility]) Vital Signs (Past 12 Hours) Vital Signs Temp Pulse Pulse Resp BP Pulse Ox 09/23/21 11:32 37.1 C 81 16 152/77 H 98 09/23/21 08:00 98 H 09/23/21 03:46 36.8 C 84 18 134/81 97 Laboratory Results Short CBC 09/23/21 Range/Units 07:12 WBC 11.79 H (4.8-10.8) K/uL Hgb 12.7 L (14.0-18.0) g/dL Hct 40.2 L (42-52) % Plt Count 303 (130-400) K/uL BMP 09/23/21 07:12 Sodium 140 Potassium 3.5 Chloride 106 Carbon Dioxide 20 L BUN 15 Creatinine 0.79 Glucose 83 Calcium 8.0 L Medications Administered Current Inpatient Medications Acetaminophen (Acetaminophen 325 Mg Tab) 650 mg PO Q4H PRN PRN Reason: Mild Pain Stop: 10/23/21 09:16 Heparin Sodium (Porcine) (Heparin Sod 5,000 Unit/0.5 Ml Vial) 5,000 units SQ Q12 [facility] Stop: 10/22/21 20:59 Last Admin: 09/23/21 08:29 Dose: 5,000 units Documented by: Lactated Ringer's (Lr) 1,000 mls @ 115 mls/hr IV .Q8H42M [facility] Stop: 10/18/21 21:15 Last Admin: 09/23/21 14:14 Dose: 75 mls/hr Documented by: Famotidine 20 mg/ Syringe 5 mls @ 2.5 mls/min IV DAILY [facility] Stop: 10/19/21 08:59 Last Admin: 09/23/21 08:33 Dose: 2.5 mls/min Documented by: Ampicillin Sodium/Sulbactam Sodium 3,000 mg/ Sodium Chloride 108 mls @ 216 mls/hr IV Q6H [facility]; Protocol Stop: 10/01/21 14:59 Last Admin: 09/23/21 14:31 Dose: 216 mls/hr Documented by: Melatonin (Melatonin 3 Mg Tab) 3 mg PO HS PRN PRN Reason: Sleep Stop: 10/21/21 15:49 Morphine Sulfate (Morphine Sulfate 2 Mg/Ml Carp) 2 mg IV Q4HWA PRN PRN Reason: Pain 1-5 Stop: 10/05/21 12:55 Morphine Sulfate (Morphine Sulfate 4 Mg/Ml 1 Ml Carp\Vial) 4 mg IV Q4 PRN PRN Reason: Pain 6-10 Stop: 10/05/21 12:55 Naloxone HCl (Naloxone Hcl 0.4 Mg/1 Ml Vial/Carp) 0.1 mg IV Q5M PRN; Protocol PRN Reason: Oversedation/Resp Depression Stop: 10/02/21 21:15 Ondansetron HCl (Ondansetron Inj 2 Mg/Ml 2 Ml Vial) 4 mg IV Q4H PRN PRN Reason: Nausea And Vomiting Stop: 10/18/21 21:15 Last Admin: 09/22/21 17:04 Dose: 4 mg Documented by:
[2021-09-24] MEDS: AMPICILLIN/SULBACTAM SOD 3,000 MG in 0.9 % SODIUM CHLORIDE 100 ML IV SCH ×4 (02:39→20:20)
[2021-09-24] MEDS: LACTATED RINGER'S 1,000 ML IV SCH ×2 (05:50→16:19)
[2021-09-24 07:00] LABS: Hematocrit (blood only) 34.3 % (42-52); Hemoglobin 11.7 g/dL (14.0-18.0); Mean Corpuscular Hemoglobin 29.5 pg (25-34); Mean Corpuscular Hgb Conc 34.1 g/dL (32-36); Mean Corpuscular Volume 86.4 fL (80-100); Mean Platelet Volume 9.4 fL (7.4-10.4); Platelet Count 373 K/uL (130-400); RDW Coefficient of Variation 15.3 % (11.5-14.5); RDW Standard Deviation 48.6 fL (36.4-46.3); Red Blood Count 3.97 M/uL (4.7-6.1); White Blood Count 14.93 K/uL (4.8-10.8)
[2021-09-24 07:30] LABS: Calcium 7.7 mg/dl (8.5-10.1); Creatinine Clr Calc Pharmacy 86.2 ml/min; Est GFR (African American) 103.4 ml/min; Est GFR (Non-African American) 89.2 ml/min; Potassium 3.4 mmol/L (3.5-5.1)
[2021-09-24 07:53] LABS: ALC (manual) 1.18 K/uL (1.2-3.4); ANC (manual) 11.78 K/uL (1.4-6.5); Lymphocytes # (manual) 1.18 K/uL (1.2-3.4); Lymphocytes % (manual) 7.9 %; Metamyelocytes # (manual) 0.79 K/uL (0-0); Metamyelocytes % (manual) 5.3 %; Monocytes # (manual) 0.52 K/uL (0.11-0.59); Monocytes % (manual) 3.5 %; Myelocytes # (manual) 0.66 K/uL (0-0); Myelocytes % (manual) 4.4 %; Neutrophils # (manual) 11.78 K/uL (1.4-6.5); Neutrophils % (manual) 78.9 %
--- NOTE | 2021-09-24 08:18 | Surgery Progress Note ---
Date of Service September 24, 2021 Assessment & Plan (1) H/O exploratory laparotomy: Plan: Post op exlap with hartmanns for perforated diverticulitis WBC 14, Hbg 11.7, Cr: 0.8, IK: 3.4. patient afebrile, remains on 6L O2 Pt much more alert and awake than yesterday. Feeling improvement in symptoms, no n/v. pain controlled Abd softer and less distended. Wounds c/d/i. MARTHA serous. negro in place to midline He is starting to put out + stool in ostomy bag. We will trial him on some clear liquids today and continue IVF for today yet Continue on IV Unasyn for today and will consider transitioning to po augmentin tomorrow Irvin replaced yesterday for urinary retention. Will start some flomax qd Continue to ambulate and be OOB as tolerates and work on IS for pulmonary toilet Appreciate hospitalists assistance with pt doing much better starting to have bowel fx wound looks good. MARTHA serous increase activity. PT/OT will start diet and slowly advance. if he tolerates we can change antibiotics to augmentin and stop IVF Admission and Anticipated Discharge Date Admission Date: September 18, 2021 Subjective Patient feeling much better than yesterday. Pain is controlled. Denies further nausea/vomiting. Starting to have meaningful stool output from colostomy. Has been up and ambulating. Physical Exam Physical Exam: awake/alert Gastrointestinal (Abdomen): Inspection/Auscultation: + abdomen distended (improved), + abdominal surgical incision (c/d/i) and + abdominal surgical drain present (serous MARTHA output. [place] in place) Percussion/Palpation: abdomen soft; abdomen nontender Results & Data ([facility]) Vital Signs (Past 12 Hours) Vital Signs Temp Pulse Pulse Resp BP Pulse Ox 09/24/21 07:45 36.8 C 84 17 144/90 H 96 09/23/21 23:55 84 09/23/21 23:04 36.5 C 79 18 151/83 H 96 PG Care Time/CCT Total # of Minutes Spent Total Time Spent with Patient: Total time spent is greater than 50% in coordination of care (as documented) at patient's floor/unit and/or counseling patient: Coding Level of Care Code None Diagnoses H/O exploratory laparotomy Z98.890
[2021-09-24] MEDS: POTASSIUM CHLORIDE / WTR 10 MEQ/100 ML PLCT IV SCH ×2 (09:51→11:37)
[2021-09-24] MEDS: FAMOTIDINE 20 MG in SYRINGE 3 ML IV SCH (09:52)
[2021-09-24] MEDS: HEPARIN SOD 5,000 UNIT/0.5 ML VIAL SQ SCH ×2 (09:52→20:20)
--- NOTE | 2021-09-24 14:18 | Hospitalist Progress Note ---
Date of Service September 24, 2021 Assessment & Plan (1) Bowel perforation: (2) SBO (small bowel obstruction): (3) Intra-abdominal abscess: Plan: 70 year old male who presented to the ED with nausea, vomiting abdominal pain and found to have perforated viscus. Bowel perforation with intraabdominal abscess and SBO- CT A/P reviewed. S/p [facility]'s procedure 09/18, OR culture growing Ecoli, Strep and bacteroides sensitive to Unasyn; ABx deescalated to Unasyn per primary team from zosyn. Diet, activities, DVT prophylaxis, pain management per surgical team. Follow-up on WBC count Postop ileus-resolved. On sips and clears. Advance diet per primary team Hypokalemia-repleted, recheck in a.m. Acute hypoxic respiratory failure- Previously on bipap, now stable at 6 L NC, wean down as tolerated. Goal saturation >92%. TTE with normal right and left sided function. Doesn't seem volume overloaded on exam. Recommend incentive spirometry and OOB activities and cut down on opiates Delirium-resolved, could be in setting of urinary retention. Continue supportive measures, delirium precautions, decrease interruption and intervention at night to allow proper rest and sleep. DANIEL- resolved, Cr on presentation 1.65, Peaked to 2.2 and now down to 0.8. Avoid nephrotoxics and NSAIDs. Urinary retention- back on Irvin. Agree with Flomax. More out of bed activities. Voiding trial in the next few days DVT prophylaxis- sc heparin GI prophylaxis- on pepcid Dispo- per primary team Admission and Anticipated Discharge Date Admission Date: September 18, 2021 Subjective Patient was seen and examined at bedside. He is doing much better today, at his baseline. He does not remember seeing or talking to me yesterday. Pain is controlled. Tolerating sips and clears without issues. No more nausea, vomiting or burping. He is now back on Irvin due to urinary retention. Denies any fever, chills, chest pain or shortness of breath. States he has problem falling back asleep at night and did well on melatonin last night. He takes melatonin 5 mg nightly at home and would like dose increased here Physical Exam Physical Exam: General: Lying comfortably in bed, not in distress, on NC HEENT: EOMI, WILLIAM, MMM Chest: Fair breath sounds bilaterally, no wheezes or crackles CVS: Regular rate and rhythm, normal heart sounds, no murmur Abdomen: Midline abdominal incision wound with packing with pen katey- clean dry intact, MARTHA drain with serosanguineous discharge, Left sided colostomy with stool Neuro: Awake, alert, oriented, conversing well, non focal Extremities: No cyanosis, clubbing or edema Results & Data Results & Data ([facility]) Vital Signs (Past 12 Hours) Vital Signs Temp Pulse Resp BP Pulse Ox 09/24/21 11:10 36.5 C 86 17 144/85 H 95 09/24/21 07:45 36.8 C 84 17 144/90 H 96 Laboratory Results Short CBC 09/24/21 Range/Units 06:42 WBC 14.93 H (4.8-10.8) K/uL Hgb 11.7 L (14.0-18.0) g/dL Hct 34.3 L (42-52) % Plt Count 373 (130-400) K/uL BMP 09/24/21 06:42 Sodium 141 Potassium 3.4 L Chloride 107 Carbon Dioxide 23 BUN 12 Creatinine 0.80 Glucose 82 Calcium 7.7 L Medications Administered Current Inpatient Medications Acetaminophen (Acetaminophen 325 Mg Tab) 650 mg PO Q4H PRN PRN Reason: Mild Pain Stop: 10/23/21 09:16 Heparin Sodium (Porcine) (Heparin Sod 5,000 Unit/0.5 Ml Vial) 5,000 units SQ Q12 [facility] Stop: 10/22/21 20:59 Last Admin: 09/24/21 09:52 Dose: 5,000 units Documented by: Lactated Ringer's (Lr) 1,000 mls @ 115 mls/hr IV .Q8H42M [facility] Stop: 10/18/21 21:15 Last Admin: 09/24/21 05:50 Dose: 75 mls/hr Documented by: Famotidine 20 mg/ Syringe 5 mls @ 2.5 mls/min IV DAILY [facility] Stop: 10/19/21 08:59 Last Admin: 09/24/21 09:52 Dose: 2.5 mls/min Documented by: Ampicillin Sodium/Sulbactam Sodium 3,000 mg/ Sodium Chloride 108 mls @ 216 mls/hr IV Q6H [facility]; Protocol Stop: 10/01/21 14:59 Last Infusion: 09/24/21 11:38 Dose: Infused Documented by: Melatonin (Melatonin 3 Mg Tab) 3 mg PO HS PRN PRN Reason: Sleep Stop: 10/21/21 15:49 Last Admin: 09/23/21 20:18 Dose: 3 mg Documented by: Morphine Sulfate (Morphine Sulfate 2 Mg/Ml Carp) 2 mg IV Q4HWA PRN PRN Reason: Pain 1-5 Stop: 10/05/21 12:55 Morphine Sulfate (Morphine Sulfate 4 Mg/Ml 1 Ml Carp\Vial) 4 mg IV Q4 PRN PRN Reason: Pain 6-10 Stop: 10/05/21 12:55 Naloxone HCl (Naloxone Hcl 0.4 Mg/1 Ml Vial/Carp) 0.1 mg IV Q5M PRN; Protocol PRN Reason: Oversedation/Resp Depression Stop: 10/02/21 21:15 Ondansetron HCl (Ondansetron Inj 2 Mg/Ml 2 Ml Vial) 4 mg IV Q4H PRN PRN Reason: Nausea And Vomiting Stop: 10/18/21 21:15 Last Admin: 09/22/21 17:04 Dose: 4 mg Documented by: Tamsulosin HCl (Tamsulosin Hcl 0.4 Mg Cap) 0.4 mg PO HS [facility] Stop: 10/24/21 20:59
[2021-09-24] MEDS: TAMSULOSIN HCL 0.4 MG CAP PO SCH (20:21)
[2021-09-24] MEDS: MELATONIN 3 MG TAB PO SCH (20:21)
[2021-09-25] MEDS: LACTATED RINGER'S 1,000 ML IV SCH ×3 (02:13→14:57)
[2021-09-25] MEDS: AMPICILLIN/SULBACTAM SOD 3,000 MG in 0.9 % SODIUM CHLORIDE 100 ML IV SCH ×4 (02:17→20:38)
[2021-09-25 08:02] LABS: Hematocrit (blood only) 34.7 % (42-52); Hemoglobin 11.7 g/dL (14.0-18.0); Mean Corpuscular Hemoglobin 28.9 pg (25-34); Mean Corpuscular Hgb Conc 33.7 g/dL (32-36); Mean Corpuscular Volume 85.7 fL (80-100); Mean Platelet Volume 9.2 fL (7.4-10.4); Platelet Count 399 K/uL (130-400); RDW Coefficient of Variation 14.9 % (11.5-14.5); RDW Standard Deviation 46.6 fL (36.4-46.3); Red Blood Count 4.05 M/uL (4.7-6.1); White Blood Count 13.03 K/uL (4.8-10.8)
[2021-09-25 08:29] LABS: BUN Creatinine Ratio 11.4 (10-20); Calcium 7.7 mg/dl (8.5-10.1); Creatinine Clr Calc Pharmacy 104.7 ml/min; Est GFR (Non-African American) 89.7 ml/min; Potassium 3.3 mmol/L (3.5-5.1)
[2021-09-25 08:31] LABS: ALC (manual) 1.64 K/uL (1.2-3.4); ANC (manual) 9.86 K/uL (1.4-6.5); Lymphocytes # (manual) 1.64 K/uL (1.2-3.4); Lymphocytes % (manual) 12.6 %; Metamyelocytes # (manual) 0.12 K/uL (0-0); Metamyelocytes % (manual) 0.9 %; Monocytes # (manual) 0.94 K/uL (0.11-0.59); Monocytes % (manual) 7.2 %; Myelocytes # (manual) 0.47 K/uL (0-0); Myelocytes % (manual) 3.6 %; Neutrophils # (manual) 9.86 K/uL (1.4-6.5); Neutrophils % (manual) 75.7 %
[2021-09-25] MEDS: HEPARIN SOD 5,000 UNIT/0.5 ML VIAL SQ SCH ×2 (08:44→20:41)
[2021-09-25] MEDS: FAMOTIDINE 20 MG in SYRINGE 3 ML IV SCH (08:44)
--- NOTE | 2021-09-25 10:06 | Surgery Progress Note ---
Date of Service September 25, 2021 Assessment & Plan (1) Bowel perforation: Plan: POD 7 [facility] advance to full liquids K+ 3.3, decrease IVF and give po supplement continue pugh continue Unasyn, WBC 13 Admission and Anticipated Discharge Date Admission Date: September 18, 2021 Subjective tolerating clears less ostomy output walking halls less arm swelling Physical Exam Gastrointestinal (Abdomen): Inspection/Auscultation: abdomen not distended Percussion/Palpation: abdomen soft + ostomy output Results & Data ([facility]) Vital Signs (Past 12 Hours) Vital Signs Temp Pulse Pulse Resp BP BP Pulse Ox 09/25/21 08:32 36.8 C 86 16 149/84 H 93 09/25/21 03:11 36.4 C L 80 16 153/81 H 94 09/25/21 02:32 76 09/24/21 23:12 36.9 C 83 18 143/81 H 94 PG Care Time/CCT Total # of Minutes Spent Total Time Spent with Patient: Total time spent is greater than 50% in coordination of care (as documented) at patient's floor/unit and/or counseling patient: Coding Level of Care Code None Diagnoses Bowel perforation K63.1
[2021-09-25] MEDS ORDERED: POTASSIUM CHLORIDE CRTAB 20 MEQ TABCR PO ONE (11:00)
--- NOTE | 2021-09-25 13:44 | Hospitalist Progress Note ---
Date of Service September 25, 2021 Assessment & Plan (1) Bowel perforation: (2) SBO (small bowel obstruction): (3) Intra-abdominal abscess: Plan: 70 year old male who presented to the ED with nausea, vomiting abdominal pain and found to have perforated viscus. Bowel perforation with intraabdominal abscess and SBO - CT A/P reviewed. S/p Eagle's procedure 09/18, OR culture growing Ecoli, Strep and bacteroides sensitive to Unasyn; ABx deescalated to Unasyn per primary team from zosyn. Diet, activities, DVT prophylaxis, pain management per surgical team. repeat WBC tomorrow Postop ileus -resolved. Tolerating Clears. Advance diet per primary team Hypokalemia -repleted, recheck in a.m. Acute hypoxic respiratory failure -likely in setting of atelectasis - Previously on bipap, weaned to 6 L NC and now weaned to RA/2L NC -TTE with normal right and left sided function. -Recommend incentive spirometry and OOB activities and cut down on opiates Delirium -resolved, could be in setting of urinary retention. Continue supportive measures, delirium precautions, decrease interruption and intervention at night to allow proper rest and sleep. DANIEL- resolved, Cr on presentation 1.65, Peaked to 2.2 and now down to 0.8. Avoid nephrotoxics and NSAIDs. Urinary retention - back on Irvin. Continue Flomax. More out of bed activities. Voiding trial in the next few days DVT prophylaxis- sc heparin GI prophylaxis- on pepcid Dispo- per primary team Admission and Anticipated Discharge Date Admission Date: September 18, 2021 Subjective and daughter present at bedside Patient feels well. Worked with PT Denies chest pain, shortness of breath Physical Exam Physical Exam: Drowsy (just awoke from nap), no acute distress, pleasant and comfortable Respiratory: diminished at bases, no wheezing/rhonchi/rales Cardiovascular: Regular rate and rhythm, no murmurs/rubs/gallops Gastrointestinal (Abdomen): soft, non tender, non distended, stoma is pink--stool is soft and brown Musculoskeletal: No edema Neurologic: drowsy, answers questions appropriately, spontaneously moving extremities Results & Data Results & Data ([facility]) Vital Signs (Past 12 Hours) Vital Signs Temp Pulse Pulse Resp BP BP Pulse Ox 09/25/21 10:59 36.8 C 84 18 145/82 H 96 09/25/21 08:32 36.8 C 86 16 149/84 H 93 09/25/21 08:00 76 09/25/21 03:11 36.4 C L 80 16 153/81 H 94 09/25/21 02:32 76 Laboratory Results Short CBC 09/20/21 09/25/21 Range/Units 05:27 07:48 WBC 13.03 H (4.8-10.8) K/uL Hgb 11.7 L (14.0-18.0) g/dL Hct 34.7 L (42-52) % Plt Count 399 (130-400) K/uL Neutrophils # (Manual) 10.03 H (1.4-6.5) K/uL BMP 09/25/21 07:48 Sodium 136 Potassium 3.3 L Chloride 103 Carbon Dioxide 24 BUN 9 Creatinine 0.79 Glucose 91 Calcium 7.7 L Medications Administered Current Inpatient Medications Acetaminophen (Acetaminophen 325 Mg Tab) 650 mg PO Q4H PRN PRN Reason: Mild Pain Stop: 10/23/21 09:16 Heparin Sodium (Porcine) (Heparin Sod 5,000 Unit/0.5 Ml Vial) 5,000 units SQ Q12 [facility] Stop: 10/22/21 20:59 Last Admin: 09/25/21 08:44 Dose: 5,000 units Documented by: Lactated Ringer's (Lr) 1,000 mls @ 50 mls/hr IV .Q20H [facility] Stop: 10/18/21 21:15 Last Admin: 09/25/21 09:38 Dose: Not Given Documented by: Famotidine 20 mg/ Syringe 5 mls @ 2.5 mls/min IV DAILY [facility] Stop: 10/19/21 08:59 Last Admin: 09/25/21 08:44 Dose: 2.5 mls/min Documented by: Ampicillin Sodium/Sulbactam Sodium 3,000 mg/ Sodium Chloride 108 mls @ 216 mls/hr IV Q6H [facility]; Protocol Stop: 10/01/21 14:59 Last Infusion: 09/25/21 09:38 Dose: Infused Documented by: Melatonin (Melatonin 3 Mg Tab) 6 mg PO HS [facility] Stop: 10/24/21 20:59 Last Admin: 09/24/21 20:21 Dose: 6 mg Documented by: Morphine Sulfate (Morphine Sulfate 2 Mg/Ml Carp) 2 mg IV Q4HWA PRN PRN Reason: Pain 1-5 Stop: 10/05/21 12:55 Morphine Sulfate (Morphine Sulfate 4 Mg/Ml 1 Ml Carp\Vial) 4 mg IV Q4 PRN PRN Reason: Pain 6-10 Stop: 10/05/21 12:55 Naloxone HCl (Naloxone Hcl 0.4 Mg/1 Ml Vial/Carp) 0.1 mg IV Q5M PRN; Protocol PRN Reason: Oversedation/Resp Depression Stop: 10/02/21 21:15 Ondansetron HCl (Ondansetron Inj 2 Mg/Ml 2 Ml Vial) 4 mg IV Q4H PRN PRN Reason: Nausea And Vomiting Stop: 10/18/21 21:15 Last Admin: 09/22/21 17:04 Dose: 4 mg Documented by: Potassium Chloride (Potassium Chloride Crtab 20 Meq Tabcr) 20 meq PO BID [facility] Stop: 10/25/21 20:59 Tamsulosin HCl (Tamsulosin Hcl 0.4 Mg Cap) 0.4 mg PO HS [facility] Stop: 10/24/21 20:59 Last Admin: 09/24/21 20:21 Dose: 0.4 mg Documented by:
[2021-09-25] MEDS: TAMSULOSIN HCL 0.4 MG CAP PO SCH (20:40)
[2021-09-25] MEDS: POTASSIUM CHLORIDE CRTAB 20 MEQ TABCR PO SCH (20:41)
[2021-09-25] MEDS: MELATONIN 3 MG TAB PO SCH (20:43)
[2021-09-26] MEDS ORDERED: COUGH DROP (SUGAR FREE) LOZ 24 LOZ/1 BOX BUCCAL ONE (01:01)
[2021-09-26] MEDS: LACTATED RINGER'S 1,000 ML IV SCH (02:38)
[2021-09-26] MEDS: AMPICILLIN/SULBACTAM SOD 3,000 MG in 0.9 % SODIUM CHLORIDE 100 ML IV SCH ×2 (02:40→07:54)
[2021-09-26 07:28] LABS: Hematocrit (blood only) 31.8 % (42-52); Hemoglobin 10.9 g/dL (14.0-18.0); Mean Corpuscular Hgb Conc 34.3 g/dL (32-36); Mean Corpuscular Volume 84.6 fL (80-100); Mean Platelet Volume 9.5 fL (7.4-10.4); Platelet Count 491 K/uL (130-400); RDW Standard Deviation 46.4 fL (36.4-46.3); Red Blood Count 3.76 M/uL (4.7-6.1); White Blood Count 11.64 K/uL (4.8-10.8)
[2021-09-26 07:41] LABS: Albumin Globulin Ratio 0.8 (0.9-2); Albumin Level 2.4 gm/dl (3.4-5.0); BUN Creatinine Ratio 9.2 (10-20); Bilirubin,Total 0.6 mg/dl (0.2-1.0); Calcium 7.4 mg/dl (8.5-10.1); Creatinine Clr Calc Pharmacy 86.7 ml/min; Est GFR (African American) 99.9 ml/min; Est GFR (Non-African American) 86.2 ml/min; Globulin 2.9 gm/dl (2.5-4.0); Potassium 3.4 mmol/L (3.5-5.1); Total Protein 5.3 gm/dl (6.0-8.3)
[2021-09-26] MEDS: HEPARIN SOD 5,000 UNIT/0.5 ML VIAL SQ SCH ×2 (07:55→21:10)
[2021-09-26] MEDS: FAMOTIDINE 20 MG in SYRINGE 3 ML IV SCH (07:55)
[2021-09-26] MEDS: POTASSIUM CHLORIDE CRTAB 20 MEQ TABCR PO SCH ×2 (07:55→21:10)
[2021-09-26 08:11] LABS: ALC (manual) 1.63 K/uL (1.2-3.4); ANC (manual) 7.96 K/uL (1.4-6.5); Eosinophils % (manual) 0.9 %; Lymphocytes # (manual) 1.63 K/uL (1.2-3.4); Metamyelocytes # (manual) 0.71 K/uL (0-0); Metamyelocytes % (manual) 6.1 %; Monocytes # (manual) 0.62 K/uL (0.11-0.59); Monocytes % (manual) 5.3 %; Myelocytes # (manual) 0.62 K/uL (0-0); Myelocytes % (manual) 5.3 %; Neutrophils # (manual) 7.96 K/uL (1.4-6.5); Neutrophils % (manual) 68.4 %; RBC Morphology Unremarkable
[2021-09-26] MEDS ORDERED: oxyCODONE HCL IR 5 MG TAB (IMMEDIATE RELEASE) PO PRN (10:23)
--- NOTE | 2021-09-26 11:36 | Surgery Progress Note ---
Date of Service September 26, 2021 Assessment & Plan (1) H/O exploratory laparotomy: Plan: Doing well. We will advance his diet to low residue. We will also DC his Irvin catheter and see how he does with urinating. We will remove his MARTHA drain as well as his [place] drain. I will call his later today. If everything comes together there is a potential for discharge tomorrow. He of course will need visiting nurses to assist with his incision colostomy and physical therapy. I would have a low threshold for keeping him another day or 2. Admission and Anticipated Discharge Date Admission Date: September 18, 2021 Subjective Patient seen. Feeling well. Tolerating full liquid diet. No new complaints. Physical Exam Physical Exam: Alert. No acute distress Abdomen is soft. The incision looks good with no sign of infection. The stoma is viable and functioning. MARTHA drain serous. Results & Data ([facility]) Vital Signs (Past 12 Hours) Vital Signs Temp Pulse Resp BP Pulse Ox 09/26/21 07:43 36.8 C 80 17 140/80 95 PG Care Time/CCT Total # of Minutes Spent Total Time Spent with Patient: Total time spent is greater than 50% in coordination of care (as documented) at patient's floor/unit and/or counseling patient: Coding Level of Care Code None Diagnoses H/O exploratory laparotomy Z98.890
--- NOTE | 2021-09-26 12:45 | Hospitalist Progress Note ---
Date of Service September 26, 2021 Assessment & Plan (1) Bowel perforation: (2) SBO (small bowel obstruction): (3) Intra-abdominal abscess: Plan: 70 year old male who presented to the ED with nausea, vomiting abdominal pain and found to have perforated viscus. Bowel perforation with intraabdominal abscess and SBO - CT A/P reviewed. S/p Eagle's procedure 09/18, OR culture growing Ecoli, Strep and bacteroides sensitive to Unasyn; ABx deescalated to Unasyn per primary team from zosyn. Diet, activities, DVT prophylaxis, pain management per surgical team. -Leukocytosis improving Postop ileus -resolved. Tolerating Clears. Diet advanced to low residue today per primary service Hypokalemia -continue KCl 20mg BID Acute hypoxic respiratory failure -likely in setting of atelectasis - Previously on bipap, weaned to 6 L NC and now weaned to 2L NC. Nursing advised to wean completely to RA -TTE with normal right and left sided function. -Recommend incentive spirometry and OOB activities Delirium -resolved DANIEL- resolved, Cr on presentation 1.65, Peaked to 2.2 and now down to 0.8. Avoid nephrotoxics and NSAIDs. Urinary retention - continue flomax. Void trial today DVT prophylaxis- sc heparin GI prophylaxis- on pepcid Dispo-plan for home with and home care services. Admission and Anticipated Discharge Date Admission Date: September 18, 2021 Subjective Patient is doing well Denies fever/chills, abdominal pain Requesting to have his pugh catheter removed Physical Exam Physical Exam: Pleasant and comfortable in bed, later observed ambulating in hallway with PT Respiratory: Breathing comfortably on 2L NC, no wheezing/rhonchi, diminished at bases Cardiovascular: regular rate and rhythm, no murmurs/rubs Gastrointestinal (Abdomen): soft, non tender Musculoskeletal: No edema Neurologic: awake, alert, answering questions appropriately, spontaneously moving extremities Results & Data Results & Data ([facility]) Vital Signs (Past 12 Hours) Vital Signs Temp Pulse Resp BP Pulse Ox 09/26/21 07:43 36.8 C 80 17 140/80 95 Laboratory Results Short CBC 09/26/21 Range/Units 06:42 WBC 11.64 H (4.8-10.8) K/uL Hgb 10.9 L (14.0-18.0) g/dL Hct 31.8 L (42-52) % Plt Count 491 H (130-400) K/uL BMP 09/26/21 06:42 Sodium 137 Potassium 3.4 L Chloride 105 Carbon Dioxide 24 BUN 8 Creatinine 0.87 Glucose 88 Calcium 7.4 L Liver Function 09/26/21 Range/Units 06:42 Total Bilirubin 0.6 (0.2-1.0) mg/dl AST 38 (13-39) U/L ALT 33 (7-52) U/L Alkaline Phosphatase 57 (34-104) U/L Albumin 2.4 L (3.4-5.0) gm/dl Medications Administered Current Inpatient Medications Acetaminophen (Acetaminophen 325 Mg Tab) 650 mg PO Q4H PRN PRN Reason: Mild Pain Stop: 10/23/21 09:16 Amoxicillin/Clavulanate Potassium (Amoxicillin/Clavulanate 875 Mg Tab) 1 tab PO BIDM [facility] Stop: 10/01/21 16:59 Heparin Sodium (Porcine) (Heparin Sod 5,000 Unit/0.5 Ml Vial) 5,000 units SQ Q12 MINNIE Stop: 10/22/21 20:59 Last Admin: 09/26/21 07:55 Dose: 5,000 units Documented by: Famotidine 20 mg/ Syringe 5 mls @ 2.5 mls/min IV DAILY MINNIE Stop: 10/19/21 08:59 Last Admin: 09/26/21 07:55 Dose: 2.5 mls/min Documented by: Melatonin (Melatonin 3 Mg Tab) 6 mg PO HS MINNIE Stop: 10/24/21 20:59 Last Admin: 09/25/21 20:43 Dose: 6 mg Documented by: Morphine Sulfate (Morphine Sulfate 2 Mg/Ml Carp) 2 mg IV Q4HWA PRN PRN Reason: Pain 1-5 Stop: 10/05/21 12:55 Morphine Sulfate (Morphine Sulfate 4 Mg/Ml 1 Ml Carp\Vial) 4 mg IV Q4 PRN PRN Reason: Pain 6-10 Stop: 10/05/21 12:55 Naloxone HCl (Naloxone Hcl 0.4 Mg/1 Ml Vial/Carp) 0.1 mg IV Q5M PRN; Protocol PRN Reason: Oversedation/Resp Depression Stop: 10/02/21 21:15 Ondansetron HCl (Ondansetron Inj 2 Mg/Ml 2 Ml Vial) 4 mg IV Q4H PRN PRN Reason: Nausea And Vomiting Stop: 10/18/21 21:15 Last Admin: 09/22/21 17:04 Dose: 4 mg Documented by: Oxycodone HCl (Oxycodone Hcl Ir 5 Mg Tab (Immediate Release)) 5 mg PO Q4H PRN PRN Reason: Pain Stop: 10/10/21 10:22 Potassium Chloride (Potassium Chloride Crtab 20 Meq Tabcr) 20 meq PO BID MINNIE Stop: 10/25/21 20:59 Last Admin: 09/26/21 07:55 Dose: 20 meq Documented by: Tamsulosin HCl (Tamsulosin Hcl 0.4 Mg Cap) 0.4 mg PO HS MINNIE Stop: 10/24/21 20:59 Last Admin: 09/25/21 20:40 Dose: 0.4 mg Documented by:
[2021-09-26] MEDS: AMOXICILLIN/CLAVULANATE 875 MG TAB PO SCH (17:08)
[2021-09-26] MEDS: TAMSULOSIN HCL 0.4 MG CAP PO SCH (21:10)
[2021-09-26] MEDS: MELATONIN 3 MG TAB PO SCH (21:10)
[2021-09-27] MEDS: HEPARIN SOD 5,000 UNIT/0.5 ML VIAL SQ SCH (08:56)
[2021-09-27] MEDS: FAMOTIDINE 20 MG in SYRINGE 3 ML IV SCH (08:56)
[2021-09-27] MEDS: POTASSIUM CHLORIDE CRTAB 20 MEQ TABCR PO SCH (08:56)
[2021-09-27] MEDS: AMOXICILLIN/CLAVULANATE 875 MG TAB PO SCH (08:56)
--- NOTE | 2021-09-27 11:08 | Hospitalist Progress Note ---
Date of Service September 27, 2021 Assessment & Plan (1) Bowel perforation: (2) SBO (small bowel obstruction): (3) Intra-abdominal abscess: Plan: 70 year old male who presented to the ED with nausea, vomiting abdominal pain and found to have perforated viscus. Bowel perforation with intraabdominal abscess and SBO - CT A/P reviewed. S/p Eagle's procedure 09/18, OR culture growing Ecoli, Strep and bacteroides sensitive to Unasyn; ABx deescalated to Unasyn and now Augmentin per primary team. -Tolerating low residue diet -Leukocytosis improving Postop ileus -resolved. Tolerating Clears. Diet advanced to low residue today per primary service Hypokalemia -continue KCl 20mg BID Acute hypoxic respiratory failure -likely in setting of atelectasis - Previously on bipap, weaned to 6 L NC and now completely to room air -TTE with normal right and left sided function. -Recommend incentive spirometry and OOB activities Delirium -resolved DANIEL- resolved, Cr on presentation 1.65, Peaked to 2.2 and now down to 0.8. Avoid nephrotoxics and NSAIDs. Urinary retention - continue flomax. Void trial yesterday with mixed results. Consider monitor for further urinary retention vs discharge home with pugh catheter--will defer to primary service. Either way, patient should follow up with Urology OP DVT prophylaxis- sc heparin GI prophylaxis- on pepcid Dispo-plan for home with and home care services. Admission and Anticipated Discharge Date Admission Date: September 18, 2021 Subjective Feels well Pugh removed yesterday. He voided with no difficulty first 2 times, then in evening had difficulty voiding Weaned to room air No other complaints currently Physical Exam Physical Exam: Appears well, no acute distress Respiratory: breathing comfortably on room air, no wheezing/rhonchi/rales Cardiovascular: regular rate and rhythm, no murmurs/rubs/gallop Gastrointestinal (Abdomen): soft, non tender Musculoskeletal: no edema Results & Data Results & Data ([facility]) Vital Signs (Past 12 Hours) Vital Signs Temp Pulse Resp BP Pulse Ox 09/27/21 07:53 36.7 C 93 H 16 142/82 H 93 Medications Administered Current Inpatient Medications Acetaminophen (Acetaminophen 325 Mg Tab) 650 mg PO Q4H PRN PRN Reason: Mild Pain Stop: 10/23/21 09:16 Amoxicillin/Clavulanate Potassium (Amoxicillin/Clavulanate 875 Mg Tab) 1 tab PO BIDM [facility] Stop: 10/01/21 16:59 Last Admin: 09/27/21 08:56 Dose: 1 tab Documented by: Heparin Sodium (Porcine) (Heparin Sod 5,000 Unit/0.5 Ml Vial) 5,000 units SQ Q12 MINNIE Stop: 10/22/21 20:59 Last Admin: 09/27/21 08:56 Dose: Not Given Documented by: Famotidine 20 mg/ Syringe 5 mls @ 2.5 mls/min IV DAILY [facility] Stop: 10/19/21 08:59 Last Admin: 09/27/21 08:56 Dose: 2.5 mls/min Documented by: Melatonin (Melatonin 3 Mg Tab) 6 mg PO HS [facility] Stop: 10/24/21 20:59 Last Admin: 09/26/21 21:10 Dose: 6 mg Documented by: Morphine Sulfate (Morphine Sulfate 2 Mg/Ml Carp) 2 mg IV Q4HWA PRN PRN Reason: Pain 1-5 Stop: 10/05/21 12:55 Morphine Sulfate (Morphine Sulfate 4 Mg/Ml 1 Ml Carp\Vial) 4 mg IV Q4 PRN PRN Reason: Pain 6-10 Stop: 10/05/21 12:55 Naloxone HCl (Naloxone Hcl 0.4 Mg/1 Ml Vial/Carp) 0.1 mg IV Q5M PRN; Protocol PRN Reason: Oversedation/Resp Depression Stop: 10/02/21 21:15 Ondansetron HCl (Ondansetron Inj 2 Mg/Ml 2 Ml Vial) 4 mg IV Q4H PRN PRN Reason: Nausea And Vomiting Stop: 10/18/21 21:15 Last Admin: 09/22/21 17:04 Dose: 4 mg Documented by: Oxycodone HCl (Oxycodone Hcl Ir 5 Mg Tab (Immediate Release)) 5 mg PO Q4H PRN PRN Reason: Pain Stop: 10/10/21 10:22 Potassium Chloride (Potassium Chloride Crtab 20 Meq Tabcr) 20 meq PO BID [facility] Stop: 10/25/21 20:59 Last Admin: 09/27/21 08:56 Dose: 20 meq Documented by: Tamsulosin HCl (Tamsulosin Hcl 0.4 Mg Cap) 0.4 mg PO HS [facility] Stop: 10/24/21 20:59 Last Admin: 09/26/21 21:10 Dose: 0.4 mg Documented by:
--- NOTE | 2021-09-27 11:37 | Surgery Progress Note ---
Date of Service September 27, 2021 Assessment & Plan (1) H/O exploratory laparotomy: Plan: His was in the room and we had a long discussion. I do believe he is okay for discharge. We will place a Irvin catheter and a leg bag for discharge. He will need to be on Augmentin for a week. We will have him follow-up with urology as well as myself in the near future. Case management already has visiting nurses set up and they will need to come tomorrow to help with primarily colostomy care. He should also have some physical therapy. I have answered all their questions. We will plan discharge this afternoon (2) Urinary retention: Admission and Anticipated Discharge Date Admission Date: September 18, 2021 Subjective Patient seen. Overall he is doing well. He is still having difficulty urinating and had to be straight catheterized twice last night. He is eating and his stoma is functioning. He would like to go home. Physical Exam Physical Exam: Alert and oriented no acute distress Abdomen is soft. Incision looks good. Stoma viable and functioning. Results & Data ([facility]) Vital Signs (Past 12 Hours) Vital Signs Temp Pulse Resp BP Pulse Ox 09/27/21 07:53 36.7 C 93 H 16 142/82 H 93 PG Care Time/CCT Total # of Minutes Spent Total Time Spent with Patient: Total time spent is greater than 50% in coordination of care (as documented) at patient's floor/unit and/or counseling patient: Coding Level of Care Code None Diagnoses H/O exploratory laparotomy Z98.890 Urinary retention R33.9
--- NOTE | 2021-10-09 09:31 | Discharge Summary ---
Date of Service September 27, 2021 Admission HPI Per Admitting Provider 70-year-old healthy male who began having abdominal pain and nausea vomiting this past Thursday. His pain is progressed as has his nausea and vomiting. He was unable to have a bowel movement and took some [id number] laxatives. Imaging today reveals perforated viscus with small bowel obstruction and multiple abdominal abscesses. Principal Diagnosis 1. Perforated diverticulitis with peritonitis and small bowel obstruction 2. Postoperative ileus 3. Urinary retention 4. Umbilical hernia 5. DANIEL Discharge Exam Constitutional WD/WN, vitals as above Respiratory normal respiratory effort, lungs clear to auscultation Cardiovascular RRR, no murmur, no edema Gastrointestinal (Abdomen) Inspection/Auscultation: + abdominal surgical incision (no erythema); abdomen not distended Percussion/Palpation: abdomen soft colostomy functioning Discharge Data Allergies Allergy/AdvReac Type Severity Reaction Status Date / Time No Known Allergies Allergy Unverified 10/04/21 10:56 Consultations 09/18/21 12:17 Consult General Surgery Stat 09/18/21 21:16 Consult Hospitalist Routine Procedures Performed Operation Date: 09/18/21 14:35 Actual Procedures p Exploratory Laparotomy, Sigmoid Colectomy, Colostomy,Abdominal Washout, Release of Small Bowel Obstruction, (Not Applicable) - Geo Soliman DO s Appendectomy(Not Applicable) - DO gen Roth Umbilical Hernia Repair(Not Applicable) - Geo Soliman DO Ordered Studies 09/18/21 10:19 CT abd pelvis IV con only Stat Hospital Course (1) Bowel perforation: 70 y/o male presented to the ED with 4-5 days of increasing abdominal pain. CT showed free air with multiple small abscesses and small bowel obstruction. He was taken to the OR for exploration and was found to have perforated diverticulitis and underwent Eagle's procedure. He was transferred to telemetry for monitoring and [facility] Hospitalists consulted routinely. Zosyn was continued and later changed to Unasyn once sensitivities returned from intra-op culture. Bowel function was slow to return as was to be expected. His white count slowly improved and creatine also normalized after peaking at 2.2. He was started on clears on POD 6 after nausea had resolved and he began having increasing bowel function. Pugh cath was replaced for retention and he was started on Flomax. He tolerated an advancing diet over the next two days. On POD 9 he was tolerating regular diet and was stable for discharge home with home health and on oral antibiotics. He failed voiding trial and pugh was again replaced and attached to leg bag and will be seen by urology as an outpatient. Total Time Total Time Spent Total Time Spent (In Minutes): 20 Discharge Plan Discharge Items Patient Disposition: Home - Home Health Services Reason For Visit: ABDOMINAL ABSCESS Discharge Diagnosis: perforated diverticulitis sigmoid colon resection with end colostomy Activity: Per Instructions section Lifting: No more than 10 pounds Bathing Comment: may shower;no soaking in tubs/pools; may prefer to bird bath for first week Exercise/Sports: Wait until after follow-up appointment Driving/Machine Use: wait until cleared by surgeon Non-emergency contact: Surgeon Call non-emergency contact if: you have any medication questions, your symptoms worsen, your pain is not controlled, your pain is worsening, your pain is concerning for you, you have a fever, your temperature is above 101.5, your wound has increased redness, your wound has increased drainage and your wound pain has increased Follow-up/Referrals: Josee Soliman CRNP [Nurse Practitioner] - 10/04/21 9:15 am (THIS APPT YOU WILL SEE UROLOGY NURSE.) Geo Soliman DO [Surgeon] - 10/04/21 11:00 am (Please call to schedule follow up in clinic within 1-2 weeks) PCP,NO [Physician] - Diet: Low Fiber Addtl Attending Provider Instructions: Care for your Ostomy as you have been instructed and taught in the hospital. Visiting nurses will be scheduling visits and also should be your first contact with any issues. Please continue on a low fiber diet until you see Dr. Soliman in the office You may purchase Tylenol over the counter if needed for post operative pain. Tylenol 650mg orally every 4-6 hours, as needed for pain. Do not exceed >3grams of Acetaminophen within a 24 hour time period. Please complete the full course of antibiotic prescribed to you You have surgical dileep that will be removed at one of your follow up appointments. You may cover the site where your drain was with dry gauze and medical tape- may change dressing daily and as needed until the site heals and is no longer draining. empty pugh leg bag as needed. Urology will call to schedule an appointment within the next week. Pending Studies at Discharge: Yes Studies:: surgical pathology Stand-Alone Forms: My [facility], Smoking Cessation Medications and DC Order Prescriptions: New tamsulosin 0.4 mg Capsule 0.4 mg PO HS 30 Days Qty: 30 RF: 1 Continued cyanocobalamin (vitamin B-12) [Vitamin B-12] 100 mcg Tablet 0 mcg PO DAILY RF: 0 omega-3 fatty acids Capsule 1,000 mg PO DAILY RF: 0 apple cider vinegar 300 mg Tablet 0 mg PO DAILY RF: 0 Blossom Root Tab 1 tab PO DAILY RF: 0 rewnn-a-orrnrlpszmsdz Tablet 0 unit PO QPM RF: 0 naproxen sodium [Aleve] 220 mg Tablet 220 mg PO HS RF: 0 calcium carbonate [Tums] 200 mg calcium (500 mg) Tablet,Chewable 0 mg PO QID PRN (Reason: gi-upset) RF: 0 esomeprazole magnesium [Nexium] 20 mg Capsule,Delayed Release(Dr/Ec) 0 mg PO DAILY RF: 0 melatonin 5 mg Tablet 5 mg PO HS RF: 0 Discharge Orders: Discharge Order (Routine); Ordered 09/27/21 Ordered By: Geo Melvin/Other Patient Handouts: Low-Fiber Diet, Indwelling Urinary Catheter Dc Admission Data Admit Date/Time: 09/18/21 17:38 Attending Provider: Geo Soliman Admit Provider: Geo Soliman Primary Care Provider: Baldo Maldonado Other Providers: Bravo Lu ; Robbie Angeol ; Geo Soliman ; Rayo Gonzalez Other Interventions: Discharge Summary Assessment (RN) Last Done: 09/27/21 13:31 Coding Level of Care Code D/C DAY MANAGEMENT <30 MINS Diagnoses Bowel perforation K63.1
--- NOTE | 2021-10-10 07:12 | Coding Query ---
Your help is needed for correct coding of this account; please clarify if the patients Post-operative Ileus was: ( ) expected out of the surgery ( ) unexpected complication from the surgery ( x)other please specify He did not have a "post operative ileus". He had a small bowel obstruction and ileus prior to the operation. It was there prior and should not be documented as "post op ileus". He had an expected return of bowel fx after surgery. thank you Thank you TORREY Ni [facility] CENTERaMteo
== END 2021-09-27 15:11 | disposition home health service (06) | DRG 329 ==
LOC: ED 09:58 → OR 13:36 → 2S 17:38 → 3W 09-25 15:21

== ENCOUNTER 2022-01-23 07:59 | Inpatient (IN) ==
--- NOTE | 2022-01-13 13:36 | Anesthesiology Consultation ---
Date of Service January 13, 2022 Assessment & Plan (1) Encounter for pre-operative examination: - COVID screening: Per assessment on 01/13: No known COVID-19 positive contacts or current COVID-19 related symptoms. Travel screen negative. Surgeon arranging preop COVID testing. Awaiting results. - S/P Exploratory Laparotomy, Sigmoid Colectomy, Colostomy, Appendectomy, Abdominal Washout, Release of Small Bowel Obstruction, Umbilical Hernia Repair 09/18/21: Glidescope #4.0, ETT 8.0 at [facility]. Per post-op anesthesia progress note 09/18/21 "no major complications apparent and Pt Satisfied with anesthetic care.. Notes: patient maintaining oxygenation with 3-4L oxymask, OK for discharge to floor with continued pulse oximeter" 09/19/21 4:24AM: Pt became disoriented, confused and combative > Per communication note from surgeon's PAC, "He said that his breathing felt "good" and he did not report any pleuritic chest pain. According to the RN there is no episodes of nausea or vomiting. RN also notes the patient's systolic blood pressure has been stable running in the 120s to 130s. In addition she reports that he has been running intermittent fevers since surgery.. Considerations included alcohol withdrawal, atrial fibrillation, sepsis, pneumonia, hypercarbia, hypoxia, and other etiologies. Patient notes that he is not a daily drinker of alcohol making alcohol withdrawal less likely. I obtained a 12-lead EKG that showed sinus tachycardia, ruling out atrial fibrillation. There are no findings indicative of acute ischemia on this EKG. I obtained a portable chest x-ray at bedside. This study showed bibasilar atelectasis and appeared similar to chest x-ray that was taken in the recovery room." 09/27/21 Hospitalist note: "Acute hypoxic respiratory failure.. likely in setting of atelectasis.. Previously on bipap, weaned to 6 L NC and now completely to room air.. TTE with normal right and left sided function.. Recommend incentive spirometry and OOB activities.. Delirium.. resolved.. DANIEL.. resolved, Cr on presentation 1.65, Peaked at 2.2 and now down to 0.8." - Will attempt to have patient update EKG and CXR prior to surgery (no answer for patient 01/13- will have PAT chemical machine tender attempt to reach patient). Chart Review Chart Review: Acceptable Risk for Surgery and Patient NOT seen in Pre Admission Testing History Surgery Operation Date: 01/23/22 08:15 Proposed Procedures p Laparoscopic/Possible Open Ramos Reversal - Geo Soliman, DO Height/Weight Height: 6 ft 1.5 in Weight: 83.915 kg Allergies Allergy/AdvReac Type Severity Reaction Status Date / Time No Known Allergies Allergy Unverified 01/13/22 11:52 Medications Home Medications Medication Instructions Recorded Confirmed Last Taken esomeprazole magnesium 20 mg 20 mg PO QPM 09/18/21 01/13/22 Unknown capsule,delayed release (Nexium) melatonin 5 mg tablet 5 mg PO HS 09/18/21 01/13/22 Unknown acetaminophen 500 mg tablet 1,000 mg PO HS PRN Pain 12/24/21 01/13/22 Unknown (Tylenol Extra Strength) polyethylene glycol 3350 17 17 g PO QPM 12/24/21 01/13/22 Unknown gram/dose oral powder (Miralax) peg 3350-electrolytes 236 240 ml PO Q10M #4,000 mL 01/03/22 01/13/22 Unknown gram-22.74 gram-6.74 gram-5.86 gram solution (Golytely) tamsulosin 0.4 mg capsule (Flomax) 0.4 mg PO HS 01/13/22 01/13/22 Unknown Past Medical History Medical History (Updated 01/13/22 @ 13:31 by Georgia Devlin) GERD (gastroesophageal reflux disease) History of COVID-19 Possible Covid 06/2020 Pt "felt" they had it, cough > resolved Past Surgical History Surgical History (Updated 01/13/22 @ 13:31 by Georgia Devlin) H/O exploratory laparotomy Exploratory Laparotomy, Sigmoid Colectomy, Colostomy, Appendectomy, Abdominal Washout, Release of Small Bowel Obstruction, Umbilical Hernia Repair (09/18/21): Glidescope #4.0, ETT 8.0 at [facility]. History of tonsillectomy Social History Smoking Status: Former smoker Do You Dip or Chew Tobacco: No Smoking End Date: quit 6 years ago Hx Alcohol Use: Yes Alcohol type: beer alcohol intake frequency: holidays/special occasions only Hx Substance Use: No substance use type: does not use Lab Results Anesthesia Preop Results Results Anesthesia Widget: WBC 6.46 K/ul (4.8-10.8) 01/03/22 Hgb 14.7 g/dl (14.0-18.0) 01/03/22 Hct 44.6 % (40.1-51.0) 01/03/22 Plt 233 K/uL (130-400) 01/03/22 Na 140 mmol/L (136-145) 01/03/22 K 3.9 mmol/L (3.5-5.1) 01/03/22 Cl 107 mmol/L (98-107) 01/03/22 CO2 26 mmol/L (21-32) 01/03/22 BUN 17 mg/dl (6-23) 01/03/22 Creat 1.23 mg/dl (0.6-1.4) 01/03/22 Glucose Level 129 mg/dl (70-99(Fasting)) H 01/03/22 Testing Electrocardiogram Date: 09/19/21 ST at 126bpm. Otherwise normal ECG. Echo done 09/19/21* Chest X-Ray Date: 09/19/21 Progression of bilateral mid and lower lung airspace opacities which may reflect consolidation or atelectasis. Trace right pleural effusion. No pneumothorax. Echocardiogram Date: 09/19/21 EF 55-60%. No significant valvular disease noted.
--- NOTE | 2022-01-14 09:01 | Anesthesiology Consultation ---
Date of Service January 14, 2022 Assessment & Plan (1) Encounter for pre-operative examination: Chart Review Chart Review: temporary data entry clerk initiated History Surgery Operation Date: 01/23/22 09:55 Proposed Procedures p Laparoscopic, Possible Open Ramos Reversal - Geo Soliman DO Height/Weight Height: 6 ft 1.5 in Weight: 83.915 kg Allergies Allergy/AdvReac Type Severity Reaction Status Date / Time No Known Allergies Allergy Verified 01/22/22 10:50 Medications Home Medications Medication Instructions Recorded Confirmed Last Taken esomeprazole magnesium 20 mg 20 mg PO QPM 09/18/21 01/22/22 01/20/22 capsule,delayed release (Nexium) melatonin 5 mg tablet 5 mg PO HS 09/18/21 01/22/22 01/21/22 acetaminophen 500 mg tablet 1,000 mg PO HS PRN Pain 12/24/21 01/22/22 01/21/22 (Tylenol Extra Strength) polyethylene glycol 3350 17 17 g PO QPM 12/24/21 01/22/22 Unknown gram/dose oral powder (Miralax) peg 3350-electrolytes 236 240 ml PO Q10M #4,000 mL 01/03/22 01/22/22 Unknown gram-22.74 gram-6.74 gram-5.86 gram solution (Golytely) tamsulosin 0.4 mg capsule (Flomax) 0.4 mg PO HS 01/13/22 01/22/22 01/21/22 Past Medical History Medical History GERD (gastroesophageal reflux disease) History of COVID-19 Possible Covid 06/2020 Pt "felt" they had it, cough > resolved Past Surgical History Surgical History H/O exploratory laparotomy Exploratory Laparotomy, Sigmoid Colectomy, Colostomy, Appendectomy, Abdominal Washout, Release of Small Bowel Obstruction, Umbilical Hernia Repair (09/18/21): Glidescope #4.0, ETT 8.0 at [facility]. History of tonsillectomy Social History Smoking Status: Former smoker Do You Dip or Chew Tobacco: No Smoking End Date: quit 6 years ago Hx Alcohol Use: No Alcohol type: beer alcohol intake frequency: holidays/special occasions only Hx Substance Use: No substance use type: does not use Testing Electrocardiogram Date: 09/19/21 ST at 126bpm. Otherwise normal ECG. Echo done 09/19/21* Chest X-Ray Date: 09/19/21 Progression of bilateral mid and lower lung airspace opacities which may reflect consolidation or atelectasis. Trace right pleural effusion. No pneumothorax. Echocardiogram Date: 09/19/21 EF 55-60%. No significant valvular disease noted.
--- NOTE | 2022-01-22 11:08 | Anesthesiology Progress Note ---
Date of Service January 22, 2022 Anesthesia Post Procedure Transfer of Care Handoff Completed per policy Notes Mental Status: alert / awake / arousable and participated in evaluation Patient Amnestic to Procedure: Yes Nausea / Vomiting: adequately controlled Pain: adequately controlled Airway Patency, RR, SpO2: stable & adequate BP & HR: stable & adequate Hydration State: stable & adequate Anesthetic Complications: no major complications apparent and Pt Satisfied with anesthetic care
[~2022-01-23 07:59] MED LIST: CIPROFLOXACIN / D5W 400 MG/200 ML BAG IV SCH; LR 15ML/HR IV SCH; PROPOFOL IV EMULSION 10 MG/ML 20 ML VIAL IV ONE; metroNIDAZOLE 500 MG/100 ML BAG IV SCH
--- NOTE | 2022-01-23 08:23 | History & Physical Report ---
Date of Service January 23, 2022 Assessment & Plan (1) Colostomy in place: Plan: Patient here today for reversal. We discussed potential complications which include bleeding, infection, anastomotic leak or stricture, injury to another organ such as ureter bowel or bladder, DVT, PE, MD, CVA etc. I have answered all the questions. We will proceed today with laparoscopic reversal of Ramos's colostomy possible open. 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 He has been doing well. Since his last office visit with me he has had a colonoscopy which was essentially negative other than a small polyp Allergies Allergy/AdvReac Type Severity Reaction Status Date / Time No Known Allergies Allergy Verified 01/22/22 10:50 Home Medications Medication Instructions Recorded Confirmed Type esomeprazole magnesium 20 mg 20 mg PO QPM 09/18/21 01/22/22 History capsule,delayed release (Nexium) melatonin 5 mg tablet 5 mg PO HS 09/18/21 01/22/22 History acetaminophen 500 mg tablet 1,000 mg PO HS PRN Pain 12/24/21 01/22/22 History (Tylenol Extra Strength) polyethylene glycol 3350 17 17 g PO QPM 12/24/21 01/22/22 History gram/dose oral powder (Miralax) tamsulosin 0.4 mg capsule (Flomax) 0.4 mg PO HS 01/13/22 01/22/22 History Past Med/Surg History Medical History GERD (gastroesophageal reflux disease) History of COVID-19 Possible Covid 06/2020 Pt "felt" they had it, cough > resolved Surgical History H/O exploratory laparotomy Exploratory Laparotomy, Sigmoid Colectomy, Colostomy, Appendectomy, Abdominal Washout, Release of Small Bowel Obstruction, Umbilical Hernia Repair (09/18/21): Glidescope #4.0, ETT 8.0 at [facility]. History of tonsillectomy Social History Smoking Status: Former smoker Smoking End Date: quit 6 years ago; Second Hand Exposure: No; Do You Dip or Chew Tobacco: No; Tobacco Cessation Education Requested by Patient: No Hx Alcohol Use: No Hx Substance Use: No Preferred Language: Serbian Communication Ability: Effective Visual Impairment: No Limitations Terminal Operator Required: No Beliefs That Will Affect Care: None Current Living Situation: Spouse Current Living Situation Comment: uncertain due to patient being lethargic at this time Other Information That Helps Us Care for You: No Feels Safe at Home: Yes Safety Concerns: Feels Safe At This Time Assistive Devices: Hearing Aid - Bilateral Assistive Devices Comment: "uses once in awhile" Review of Systems All systems reviewed & are unremarkable except as noted in HPI & below Physical Exam Constitutional: WD/WN, vitals as above no acute distress and not ill appearing Eyes: PERRL, conjunctivae normal, anicteric sclerae EOM intact bilaterally ENMT: external ear and nose normal, oropharynx normal Ears: no hearing impairment Neck: trachea midline, no thyromegaly Respiratory: normal respiratory effort; no respiratory distress and does not use accessory muscles Cardiovascular: Rate/Rhythm: regular rate and regular rhythm Gastrointestinal (Abdomen): Soft. Well-healed midline incision. Left lower quadrant stoma intact and functioning. No changes since his last visit with me Skin: no rashes, warm and dry Psychiatric: Orientation: alert, oriented x 3 and cooperative
[2022-01-23] MEDS ORDERED: LIDOCAINE 2% MPF LOCAL 5 ML VIAL INFIL ONE (08:44)
[2022-01-23] MEDS ORDERED: ROCURONIUM BROMIDE 10 MG/ML 5 ML VIAL IV ONE (08:44)
[2022-01-23] MEDS ORDERED: DEXAMETHASONE SOD INJ 4 MG/ML VIAL ONE (08:44)
[2022-01-23] MEDS ORDERED: fentaNYL citrate 100 MCG/2 ML VIAL ONE ×3 (08:44→11:57)
[2022-01-23] MEDS ORDERED: PROPOFOL IV EMULSION 10 MG/ML 20 ML VIAL IV ONE (08:44)
[2022-01-23] MEDS ORDERED: ONDANSETRON INJ 2 MG/ML 2 ML VIAL ONE (08:44)
--- NOTE | 2022-01-23 08:45 | XRay Report ---
TWO VIEW CHEST CLINICAL HISTORY: Preoperative examination. Colostomy reversal. FINDINGS: PA and lateral chest radiographs are compared to study dated 09/19/2021. The cardiomediastin al silhouette is top normal for projection. The lungs are hyperinflated and hyperlucent with flatteni ng the diaphragm and increased retrosternal clear space. This suggests emphysema. Chronic interstitia l thickening is similar to previous. Linear opacities are noted in the right midlung. No airspace con solidation or pleural effusion is identified. Nipple shadows project over the lower chest bilaterally . There is no pneumothorax. The skeletal structures are osteopenic. The bony thorax appears intact. D egenerative change is noted in the shoulders and thoracic spine. IMPRESSION: 1. No active disease in the chest. 2. Suspect emphysema. 3. Linear opacities in the right midlung may represent parenchymal scarring. A chest CT is recommende d for further assessment and to exclude underlying pulmonary lesion. ACT 112: Positive. There are findings on this exam that require communication between the performing entity and the patient following Patient Test Result Information Act ([place] Act 112) guidelines. Electronically signed by: Long Lane M.D. 01/23/2022 8:44 AM
[2022-01-23] MEDS ORDERED: ATROPINE SULFATE 0.1 MG/ML 10ML SYR IV PRN ×2 (09:09→10:01)
[2022-01-23] MEDS ORDERED: LABETALOL HCL IV 5 MG/ML 20ML IV PRN (09:09)
[2022-01-23] MEDS ORDERED: ePHEDrine sulfate 50 MG/ML AMP IV PRN ×2 (09:09→10:01)
[2022-01-23] MEDS ORDERED: ONDANSETRON INJ 2 MG/ML 2 ML VIAL IV PRN ×3 (09:09→14:48)
--- NOTE | 2022-01-23 09:09 | Anesthesiology Consultation ---
Date of Service January 23, 2022 Assessment & Plan (1) Encounter for pre-operative examination: Chart Review Chart Review: Acceptable Risk for Surgery and Patient NOT seen in Pre Admission Testing Consults Requested none History Surgery Operation Date: 01/23/22 09:55 Proposed Procedures p Laparoscopic, Possible Open Ramos Reversal - Geo Soliman DO Height/Weight Height: 6 ft 1.5 in Weight: 83.915 kg Allergies Allergy/AdvReac Type Severity Reaction Status Date / Time No Known Allergies Allergy Verified 01/22/22 10:50 Medications Home Medications Medication Instructions Recorded Confirmed Last Taken esomeprazole magnesium 20 mg 20 mg PO QPM 09/18/21 01/23/22 01/20/22 18:00 capsule,delayed release (Nexium) melatonin 5 mg tablet 5 mg PO HS 09/18/21 01/23/22 01/22/22 21:00 acetaminophen 500 mg tablet 1,000 mg PO HS PRN Pain 12/24/21 01/23/22 01/22/22 21:00 (Tylenol Extra Strength) polyethylene glycol 3350 17 17 g PO QPM 12/24/21 01/23/22 01/20/22 16:00 gram/dose oral powder (Miralax) tamsulosin 0.4 mg capsule (Flomax) 0.4 mg PO HS 01/13/22 01/23/22 01/22/22 21:00 Past Medical History Medical History GERD (gastroesophageal reflux disease) History of COVID-19 Possible Covid 06/2020 Pt "felt" they had it, cough > resolved Past Surgical History Surgical History H/O exploratory laparotomy Exploratory Laparotomy, Sigmoid Colectomy, Colostomy, Appendectomy, Abdominal Washout, Release of Small Bowel Obstruction, Umbilical Hernia Repair (09/18/21): Glidescope #4.0, ETT 8.0 at [facility]. History of tonsillectomy Social History Smoking Status: Former smoker Do You Dip or Chew Tobacco: No Smoking End Date: quit 6 years ago Hx Alcohol Use: No Alcohol type: beer alcohol intake frequency: holidays/special occasions only Hx Substance Use: No substance use type: does not use Testing Electrocardiogram Date: 01/23/22 Findings: + NNEKAR @
[2022-01-23] MEDS ORDERED: BUPIVACAINE 0.5 % 5 MG/1 ML MPF 30ML VIAL ONE (09:35)
[2022-01-23] MEDS ORDERED: EPINEPHrine INJ 1 MG/ML AMP ONE (09:35)
[2022-01-23] MEDS ORDERED: fentaNYL citrate 100 MCG/2 ML VIAL IV PRN (10:01)
[2022-01-23] MEDS ORDERED: HYDROmorphone INJ 2 MG/ML SYR/VIAL IV PRN (10:01)
[2022-01-23] MEDS ORDERED: ePHEDrine sulfate 50 MG/ML AMP ONE (10:49)
[2022-01-23] MEDS ORDERED: PHENYLEPHRINE 100MCG/ML 5ML SYR ONE (10:49)
[2022-01-23] MEDS ORDERED: HYDROmorphone INJ 2 MG/ML SYR/VIAL ONE (11:44)
[2022-01-23] MEDS: fentaNYL citrate 100 MCG/2 ML VIAL IV PRN ×4 (13:20→13:35)
[2022-01-23] MEDS: HYDROmorphone INJ 2 MG/ML SYR/VIAL IV PRN ×3 (13:43→14:41)
--- NOTE | 2022-01-23 14:31 | Anesthesiology Progress Note ---
Date of Service January 23, 2022 Anesthesia Post Procedure Vital Signs Vital Signs: Temp Pulse Pulse Resp BP Pulse Ox O2 Del Method 01/23/22 14:05 95 H 12 110/73 99 Nasal Cannula 01/23/22 13:55 82 23 109/77 100 Oxymask 01/23/22 13:45 87 26 H 110/66 98 Oxymask 01/23/22 13:35 86 12 102/60 97 Oxymask 01/23/22 13:25 98 H 16 101/64 95 Oxymask 01/23/22 13:16 97.0 F L 109 H 18 112/73 96 Oxymask 01/23/22 09:03 98.1 F 78 20 115/76 100 Room Air O2 Flow Rate 01/23/22 14:05 4 01/23/22 13:55 4 01/23/22 13:45 6 01/23/22 13:35 6 01/23/22 13:25 8 01/23/22 13:16 8 01/23/22 09:03 Pain Intensity Abdomen: Pain Intensity: 6 Transfer of Care Handoff Completed per policy Notes Mental Status: alert / awake / arousable and participated in evaluation Patient Amnestic to Procedure: Yes Nausea / Vomiting: adequately controlled Pain: adequately controlled Airway Patency, RR, SpO2: stable & adequate BP & HR: stable & adequate Hydration State: stable & adequate Anesthetic Complications: no major complications apparent and Pt Satisfied with anesthetic care
[2022-01-23] MEDS ORDERED: HYDROmorphone INJ 0.5 MG/0.5 ML SYR IV PRN ×2 (14:48)
--- NOTE | 2022-01-23 15:02 | Operative Report ---
PG Post Operative Report Pre & Post Diagnosis Operation Date: 01/23/22 09:55 Pre-Op Diagnosis: History of end colostomy Post-Op Diagnosis: History of end colostomy I identified the patient and participated in the time-out.: Yes Procedure Operation Date: 01/23/22 09:55 Actual Procedures p Laparoscopic Ramos Reversal, Incisional Hernia Repair(Not Applicable); extensive enterolysis - Geo Solmian DO Surgeon Geo Soliman DO Electric Clock Mechanic fawad Alanis Estimated Blood Loss 25 Findings Consistent with Post-Op Diagnosis Specimens none Description of Procedure After informed consent was obtained the patient was taken to the operating room and placed in supine position. After successful intubation a Irvin catheter was placed and the patient was placed in a low lithotomy position. I used 2-0 silk to close the left lower quadrant colostomy. At this point we shaved and sterilely prepped and draped the entire abdomen as well as perineum. I began by making an upper midline incision below the xiphoid process with 11 blade scalpel. We carried this down through soft tissue using cautery. Anterior fascia was opened using cautery and two #0 Vicryl stay sutures were placed. Blunt finger penetration was performed through the peritoneum and a finger sweep was performed. I was able to readily palpate a small incisional hernia just at the upper pole of his prior midline incision. A 12 mm Joshua trocar was placed and the abdomen was insufflated to 20 mmHg. Laparoscope was inserted and the abdomen examined 360 degrees. There were adhesions along his midline incision as well as a small parastomal hernia but otherwise no other gross abnormalities. A right lower quadrant 5 mm trocar and a right mid abdominal 5 mm trocar were placed under direct vision. I began by using traction countertraction and primarily sharp scissor lysis and blunt dissection to take down all of the small bowel adhesions. These were quite extensive and involve the midline incision as well as some in the left lower quadrant and pelvis. Once adhesions were freed up we were able to evaluate the colostomy itself. I was able to take down adhesions from the colostomy to the abdominal wall. I also freed up the white line of Toldt proximally. It appeared as though there was plenty of mobilized colon to perform the anastomosis. Next my attention then turned to the rectal stump. The previously placed Prolene stitches were readily visible. I was able to free up the rectal stump along the lateral side as well as the anterior abdominal wall. Once we had both the colostomy as well as the rectal stump mobilized we then desufflated the abdomen. I used electrocautery to make an elliptical incision around the previously sewn shut colostomy. We continued to use traction countertraction blunt dissection as well as sharp scissor lysis to take down the adhesions around the stoma. Eventually we had it completely freed up. At this point we placed a bowel clamp and cut open the colon taking the skin and sutures with it. We were able to use sizers to estimate the size of the lumen to be 28 mm. A 2-0 silk was used to hand sew a pursestring. The anvil of a 28 mm circular stapler was placed into the end of the bowel and secured into place using the pursestring. This was placed back into the abdominal cavity. At this point we changed our gloves. Next we closed the fascia of the colostomy site using #1 PDS in running fashion. Next we reinsufflated the abdomen and reinserted the laparoscope. The anvil and left- sided colon easily laid over the pelvic brim into the pelvis itself. We used sizers to come in through the rectal stump followed by the handle of the circular stapler. We were able to deploy the spike just anterior to the previous staple line. The handle was connected to the anvil and they were secured together and fired creating a circular functional end-to-end anastomosis. Both donuts were intact. We filled the pelvis with irrigation and I clamped off the proximal bowel. A rigid proctoscope was advanced into the rectum and the anastomosis was insufflated under pressure. It was completely airtight with no evidence of a leak. Final irrigation was performed. There was adequate hemostasis. A 10 flat Tonio-Christiansen drain was placed into the pelvis and brought out through one of the port sites and secured to the skin using 2-0 nylon. Final look around the abdomen showed no other abnormalities other than the previously stated incisional hernia. We removed all the trochars and desufflated the abdomen. I extended the 12 mm incision inferiorly using cautery. We are able to incorporate the hernia into the closure. I used 0 PDS in running fashion to close both the fascial edges of the hernia as well as the fascial edges of the Joshua port site. Once this was completed we thoroughly irrigated all the wounds and closed them using skin dileep. The colostomy site was closed over top of 1/4 inch Ashleigh drain. Silver dressings gauze and tape were applied. The patient was awakened placed back in the supine position extubated and transferred to recovery in stable condition. My physician physician assistant certified was present for the entire case and was instrumental in assisting with running the camera as well as retraction and exposure with taking down the colostomy, the anastomosis and wound closures. I attest to the content of the Intraoperative Record and any orders documented therein. Any exceptions are noted below.
[2022-01-23] MEDS: LACTATED RINGER'S 1,000 ML IV SCH ×2 (15:30→23:22)
[2022-01-23] MEDS: ACETAMINOPHEN 1,000 MG/100 ML VIAL IV SCH ×2 (16:11→23:25)
[2022-01-23] MEDS: metroNIDAZOLE 500 MG/100 ML BAG IV SCH (18:09)
--- NOTE | 2022-01-23 18:50 | Electrocardiogram Report ---
Test Reason : Blood Pressure : / mmHG Vent. Rate : 076 BPM Atrial Rate : 076 BPM P-R Int : 184 ms QRS Dur : 096 ms QT Int : 404 ms P-R-T Axes : 089 051 070 degrees QTc Int : 454 ms Normal sinus rhythm Normal ECG When compared with ECG of 19-SEP-2021 04:59, Vent. rate has decreased BY 50 BPM Nonspecific T wave abnormality no longer evident in Inferior leads Confirmed by Mauricio Young ([id number]) on 01/23/2022 6:49:32 PM Referred By: Geo Soliman Confirmed By:Tony Young
[2022-01-23] MEDS: TAMSULOSIN HCL 0.4 MG CAP PO SCH (21:11)
[2022-01-23] MEDS: MELATONIN 3 MG TAB PO SCH (21:11)
[2022-01-24] MEDS: CIPROFLOXACIN / D5W 400 MG/200 ML BAG IV SCH ×3 (00:02→23:47)
[2022-01-24] MEDS: metroNIDAZOLE 500 MG/100 ML BAG IV SCH ×2 (02:34→09:26)
[2022-01-24 07:36] LABS: Basophils # (auto) 0.02 K/uL (0-0.2); Basophils % (auto) 0.2 %; Eosinophils # (auto) 0.01 K/uL (0-0.50); Eosinophils % (auto) 0.1 %; Hematocrit (blood only) 37.3 % (40.1-51.0); Hemoglobin 12.6 g/dl (14.0-18.0); Immature Granulocytes # (auto) 0.06 K/uL (0.00-0.02); Immature Granulocytes % (auto) 0.5 %; Lymphocytes # (auto) 1.58 K/uL (1.2-3.4); Lymphocytes % (auto) 13.8 %; Mean Corpuscular Hemoglobin 29.2 pg (25.0-34.0); Mean Corpuscular Hgb Conc 33.8 g/dL (32.0-36.0); Mean Corpuscular Volume 86.3 fL (80.0-100.0); Mean Platelet Volume 9.9 fL (9.4-12.4); Monocytes # (auto) 1.16 K/uL (0.24-0.82); Monocytes % (auto) 10.1 %; Neutrophils % (auto) 75.3 %; Platelet Count 185 K/uL (130-400); RDW Coefficient of Variation 14.2 % (11.5-14.5); RDW Standard Deviation 44.9 fL (36.4-46.3); Red Blood Count 4.32 M/uL (4.63-6.08); White Blood Count 11.43 K/ul (4.8-10.8)
[2022-01-24 07:54] LABS: Calcium 8.6 mg/dl (8.5-10.1); Creatinine Clr Calc Pharmacy 75.4 ml/min; Est GFR (African American) 86.2 ml/min; Est GFR (Non-African American) 74.3 ml/min; Potassium 3.6 mmol/L (3.5-5.1)
[2022-01-24] MEDS: ENOXAPARIN INJ 40 MG/0.4 ML SYR SQ SCH (08:04)
[2022-01-24] MEDS: ACETAMINOPHEN 1,000 MG/100 ML VIAL IV SCH ×3 (08:04→23:46)
--- NOTE | 2022-01-24 08:44 | Surgery Progress Note ---
Date of Service January 24, 2022 Assessment & Plan (1) Colostomy in place: Plan: POD lap colostomy takedown seen with Dr. Jourdan pugh, already started Flomax a few days ago for h/o postop retention can have clears, decrease IVF start Lovenox ambulate Admission and Anticipated Discharge Date Admission Date: January 23, 2022 Subjective no nausea, pain improved today, amb in room Physical Exam Constitutional: WD/WN, vitals as above Gastrointestinal (Abdomen): Inspection/Auscultation: + abdominal surgical incision (some negro drainage LLQ) and + abdominal surgical drain present (30 cc); abdomen not distended Results & Data ([facility]) Vital Signs (Past 12 Hours) Vital Signs Temp Pulse Pulse Resp BP Pulse Ox O2 Del Method 01/24/22 07:55 36.9 C 98 H 18 137/79 94 Room Air 01/24/22 06:51 94 Room Air 01/24/22 03:47 36.7 C 96 H 16 130/81 95 Nasal Cannula 01/23/22 22:56 36.6 C 102 H 16 126/79 93 Room Air 01/23/22 21:00 Nasal Cannula O2 Flow Rate 01/24/22 07:55 01/24/22 06:51 01/24/22 03:47 2 01/23/22 22:56 01/23/22 21:00 2 PG Care Time/CCT Total # of Minutes Spent Total Time Spent with Patient: Total time spent is greater than 50% in coordination of care (as documented) at patient's floor/unit and/or counseling patient: Coding Level of Care Code None Diagnoses Colostomy in place Z93.3
[2022-01-24] MEDS: LACTATED RINGER'S 1,000 ML IV SCH ×3 (09:26→20:50)
[2022-01-24] MEDS: PANTOprazole 40 MG in SYRINGE 0 ML IV SCH (11:20)
[2022-01-24] MEDS: TAMSULOSIN HCL 0.4 MG CAP PO SCH (20:50)
[2022-01-24] MEDS: MELATONIN 3 MG TAB PO SCH (20:50)
[2022-01-25] MEDS: LACTATED RINGER'S 1,000 ML IV SCH ×2 (06:41→23:39)
[2022-01-25 06:53] LABS: Basophils # (auto) 0.05 K/uL (0-0.2); Basophils % (auto) 0.6 %; Eosinophils # (auto) 0.11 K/uL (0-0.50); Eosinophils % (auto) 1.3 %; Hematocrit (blood only) 34.9 % (40.1-51.0); Hemoglobin 11.7 g/dl (14.0-18.0); Immature Granulocytes # (auto) 0.03 K/uL (0.00-0.02); Immature Granulocytes % (auto) 0.4 %; Lymphocytes # (auto) 1.36 K/uL (1.2-3.4); Lymphocytes % (auto) 16.7 %; Mean Corpuscular Hemoglobin 29.2 pg (25.0-34.0); Mean Corpuscular Hgb Conc 33.5 g/dL (32.0-36.0); Monocytes % (auto) 9.8 %; Neutrophils # (auto) 5.81 K/uL (1.4-6.5); Neutrophils % (auto) 71.2 %; Platelet Count 173 K/uL (130-400); RDW Coefficient of Variation 14.2 % (11.5-14.5); RDW Standard Deviation 45.9 fL (36.4-46.3); Red Blood Count 4.01 M/uL (4.63-6.08); White Blood Count 8.16 K/ul (4.8-10.8)
[2022-01-25 07:21] LABS: BUN Creatinine Ratio 5.2 (10-20); Calcium 8.5 mg/dl (8.5-10.1); Creatinine Clr Calc Pharmacy 77.8 ml/min; Est GFR (African American) 89.4 ml/min; Est GFR (Non-African American) 77.1 ml/min; Potassium 3.4 mmol/L (3.5-5.1)
[2022-01-25] MEDS: ACETAMINOPHEN 1,000 MG/100 ML VIAL IV SCH ×3 (07:43→23:40)
[2022-01-25] MEDS ORDERED: POTASSIUM CHLORIDE CRTAB 20 MEQ TABCR PO STA (09:19)
--- NOTE | 2022-01-25 09:32 | Surgery Progress Note ---
Date of Service January 25, 2022 Assessment & Plan (1) Colostomy in place: Plan: decrease IVF up melatonin dose clears ambulate Admission and Anticipated Discharge Date Admission Date: January 23, 2022 Subjective not sleeping well, increase melatonin to home regimen increased UOP; will decrease IVF pain controlled some liquid stool blood tinged Review of Systems Constitutional: no fever and no chills Respiratory: no dyspnea Cardiovascular: no chest pain Gastrointestinal: + abdominal pain; no nausea and no vomiting Genitourinary: + urinary frequency and + nocturia Physical Exam Constitutional: well developed and well nourished Neck: trachea midline Respiratory: normal respiratory effort, lungs clear to auscultation Cardiovascular: RRR, no murmur, no edema Gastrointestinal (Abdomen): Inspection/Auscultation: abdomen normal to inspection, + abdomen distended, normal bowel sounds, + abdominal surgical incision and + abdominal surgical drain present Percussion/Palpation: + abdomen tender and abdomen soft (serosanguinous); no guarding and abdomen not rigid Skin: no rashes, warm and dry Results & Data ([facility]) Vital Signs (Past 12 Hours) Vital Signs Temp Pulse Resp BP Pulse Ox O2 Del Method 01/25/22 07:23 36.8 C 100 H 16 151/90 H 93 Room Air 01/24/22 21:35 36.9 C 75 16 135/84 94 Room Air
[2022-01-25] MEDS: ENOXAPARIN INJ 40 MG/0.4 ML SYR SQ SCH (10:05)
[2022-01-25] MEDS: PANTOprazole 40 MG in SYRINGE 0 ML IV SCH (11:29)
[2022-01-25] MEDS: TAMSULOSIN HCL 0.4 MG CAP PO SCH (20:17)
[2022-01-25] MEDS: MELATONIN 3 MG TAB PO PRN (22:12)
[2022-01-25] MEDS: MELATONIN 3 MG TAB PO SCH (22:12)
[2022-01-26 07:26] LABS: Basophils # (auto) 0.05 K/uL (0-0.2); Basophils % (auto) 0.7 %; Eosinophils # (auto) 0.28 K/uL (0-0.50); Eosinophils % (auto) 3.9 %; Hematocrit (blood only) 35.1 % (40.1-51.0); Hemoglobin 11.8 g/dl (14.0-18.0); Immature Granulocytes # (auto) 0.02 K/uL (0.00-0.02); Immature Granulocytes % (auto) 0.3 %; Lymphocytes # (auto) 1.68 K/uL (1.2-3.4); Lymphocytes % (auto) 23.4 %; Mean Corpuscular Hemoglobin 29.4 pg (25.0-34.0); Mean Corpuscular Hgb Conc 33.6 g/dL (32.0-36.0); Mean Corpuscular Volume 87.5 fL (80.0-100.0); Monocytes # (auto) 0.76 K/uL (0.24-0.82); Monocytes % (auto) 10.6 %; Neutrophils % (auto) 61.1 %; Platelet Count 182 K/uL (130-400); RDW Coefficient of Variation 14.4 % (11.5-14.5); Red Blood Count 4.01 M/uL (4.63-6.08); White Blood Count 7.19 K/ul (4.8-10.8)
[2022-01-26 08:01] LABS: BUN Creatinine Ratio 5.5 (10-20); Calcium 8.4 mg/dl (8.5-10.1); Creatinine Clr Calc Pharmacy 82.9 ml/min; Est GFR (African American) 96.6 ml/min; Est GFR (Non-African American) 83.3 ml/min; Potassium 3.5 mmol/L (3.5-5.1)
[2022-01-26] MEDS: ACETAMINOPHEN 1,000 MG/100 ML VIAL IV SCH (08:45)
[2022-01-26] MEDS: ENOXAPARIN INJ 40 MG/0.4 ML SYR SQ SCH (08:45)
--- NOTE | 2022-01-26 10:20 | Surgery Progress Note ---
Date of Service January 26, 2022 Assessment & Plan (1) Colostomy in place: Plan: slow progress continue clears good pain control Admission and Anticipated Discharge Date Admission Date: January 23, 2022 Subjective passing flatus good pain control clear liquids Review of Systems Constitutional: no fever and no chills Respiratory: no cough and no dyspnea Cardiovascular: no chest pain Gastrointestinal: + abdominal pain; no nausea and no vomiting Genitourinary: no dysuria Integumentary: no rash and no lesions Physical Exam Constitutional: WD/WN, vitals as above Respiratory: normal respiratory effort, lungs clear to auscultation Cardiovascular: RRR, no murmur, no edema Gastrointestinal (Abdomen): Inspection/Auscultation: abdomen normal to inspection, + abdomen distended and + abdominal surgical incision; + abnormal bowel sounds Percussion/Palpation: + abdomen tender and abdomen soft; no guarding and abdomen not rigid Results & Data ([facility]) Vital Signs (Past 12 Hours) Vital Signs Temp Pulse Resp BP Pulse Ox O2 Del Method 01/26/22 07:25 Room Air 01/26/22 07:19 36.7 C 93 H 16 132/86 93 Room Air
[2022-01-26] MEDS: PANTOprazole 40 MG in SYRINGE 0 ML IV SCH (11:19)
[2022-01-26] MEDS ORDERED: ACETAMINOPHEN 500 MG TAB PO PRN (19:17)
[2022-01-26] MEDS: LACTATED RINGER'S 1,000 ML IV SCH (20:03)
[2022-01-26] MEDS: MELATONIN 3 MG TAB PO SCH (22:08)
[2022-01-26] MEDS: MELATONIN 3 MG TAB PO PRN (22:08)
[2022-01-26] MEDS: ACETAMINOPHEN 500 MG TAB PO PRN (22:08)
[2022-01-26] MEDS: TAMSULOSIN HCL 0.4 MG CAP PO SCH (22:08)
[2022-01-27 08:02] LABS: Basophils # (auto) 0.04 K/uL (0-0.2); Basophils % (auto) 0.7 %; Eosinophils # (auto) 0.28 K/uL (0-0.50); Eosinophils % (auto) 4.6 %; Hematocrit (blood only) 34.7 % (40.1-51.0); Hemoglobin 11.6 g/dl (14.0-18.0); Immature Granulocytes # (auto) 0.02 K/uL (0.00-0.02); Immature Granulocytes % (auto) 0.3 %; Lymphocytes # (auto) 1.61 K/uL (1.2-3.4); Lymphocytes % (auto) 26.3 %; Mean Corpuscular Hgb Conc 33.4 g/dL (32.0-36.0); Mean Corpuscular Volume 86.8 fL (80.0-100.0); Mean Platelet Volume 9.5 fL (9.4-12.4); Monocytes # (auto) 0.61 K/uL (0.24-0.82); Neutrophils # (auto) 3.57 K/uL (1.4-6.5); Neutrophils % (auto) 58.1 %; Platelet Count 194 K/uL (130-400); RDW Coefficient of Variation 14.2 % (11.5-14.5); RDW Standard Deviation 45.3 fL (36.4-46.3); White Blood Count 6.13 K/ul (4.8-10.8)
[2022-01-27 08:19] LABS: BUN Creatinine Ratio 5.7 (10-20); Calcium 8.2 mg/dl (8.5-10.1); Creatinine Clr Calc Pharmacy 86.7 ml/min; Est GFR (African American) 99.2 ml/min; Est GFR (Non-African American) 85.6 ml/min; Potassium 3.4 mmol/L (3.5-5.1)
--- NOTE | 2022-01-27 09:17 | Surgery Progress Note ---
Date of Service January 27, 2022 Assessment & Plan (1) H/O exploratory laparotomy: Plan: POD 4 colostomy takedown advance to full liquids ambulating taking Tylenol for pain as above. melo diet. +loose bms. no complaints. if tolerates full liquids will advance to solids tomorrow with potential d/c tomorrow afternoon. Admission and Anticipated Discharge Date Admission Date: January 23, 2022 Subjective having multiple loose BMs, minimal pain Physical Exam Constitutional: WD/WN, vitals as above Gastrointestinal (Abdomen): Inspection/Auscultation: + abdominal surgical incision (no erthema, minimal negro drainage) and + abdominal surgical drain present (60 cc) Percussion/Palpation: abdomen soft Results & Data ([facility]) Vital Signs (Past 12 Hours) Vital Signs Temp Pulse Resp BP Pulse Ox O2 Del Method 01/27/22 08:05 Room Air 01/27/22 07:06 36.4 C L 84 14 146/82 H 91 Room Air 01/26/22 21:46 37.0 C 80 16 148/91 H 94 Room Air PG Care Time/CCT Total # of Minutes Spent Total Time Spent with Patient: Total time spent is greater than 50% in coordination of care (as documented) at patient's floor/unit and/or counseling patient: Coding Level of Care Code None Diagnoses H/O exploratory laparotomy Z98.890
[2022-01-27] MEDS: ENOXAPARIN INJ 40 MG/0.4 ML SYR SQ SCH (09:50)
[2022-01-27] MEDS: PANTOprazole 40 MG in SYRINGE 0 ML IV SCH (12:05)
[2022-01-27] MEDS: MELATONIN 3 MG TAB PO SCH (21:52)
[2022-01-27] MEDS: MELATONIN 3 MG TAB PO PRN (21:52)
[2022-01-27] MEDS: TAMSULOSIN HCL 0.4 MG CAP PO SCH (21:52)
[2022-01-27] MEDS: ACETAMINOPHEN 500 MG TAB PO PRN (21:52)
--- NOTE | 2022-01-28 08:33 | Surgery Progress Note ---
Date of Service January 28, 2022 Assessment & Plan (1) H/O exploratory laparotomy: Plan: POD 5 colostomy takedown low fiber diet, home later today if tolerates MARTHA removed, will remove negro from LLQ incision next week in clinic seen with Dr. Soliman as above. doing well. d/c home this afternoon if he tolerates lunch. Admission and Anticipated Discharge Date Admission Date: January 23, 2022 Subjective tolerating full liquids, BM less liquid, Tylenol for pain Physical Exam Constitutional: WD/WN, vitals as above Gastrointestinal (Abdomen): Inspection/Auscultation: + abdominal surgical incision (minimal negro drainage) and + abdominal surgical drain present (serous); abdomen not distended Results & Data ([facility]) Vital Signs (Past 12 Hours) Vital Signs Temp Pulse Resp BP BP Pulse Ox O2 Del Method 01/28/22 07:08 Room Air 01/28/22 06:43 36.6 C 78 18 154/87 H 98 Room Air 01/27/22 22:10 37.0 C 74 16 143/92 H 94 Room Air PG Care Time/CCT Total # of Minutes Spent Total Time Spent with Patient: Total time spent is greater than 50% in coordination of care (as documented) at patient's floor/unit and/or counseling patient: Coding Level of Care Code None Diagnoses H/O exploratory laparotomy Z98.890
[2022-01-28] MEDS: ENOXAPARIN INJ 40 MG/0.4 ML SYR SQ SCH (09:17)
[2022-01-28] MEDS: PANTOprazole 40 MG in SYRINGE 0 ML IV SCH (10:06)
--- NOTE | 2022-01-28 11:24 | Discharge Summary ---
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 He has been doing well. Since his last office visit with me he has had a colonoscopy which was essentially negative other than a small polyp Principal Diagnosis Colostomy for h/o perforated diverticulitis Discharge Exam Constitutional WD/WN, vitals as above Respiratory normal respiratory effort, lungs clear to auscultation Gastrointestinal (Abdomen) Inspection/Auscultation: + abdominal surgical incision (no erythema) and + abdominal surgical drain present (subQ negro LLQ wound); abdomen not distended Percussion/Palpation: abdomen soft Discharge Data Allergies Allergy/AdvReac Type Severity Reaction Status Date / Time No Known Allergies Allergy Verified 01/22/22 10:50 Procedures Performed Operation Date: 01/23/22 09:55 Actual Procedures p Laparoscopic Ramos Reversal, Incisional Hernia Repair(Not Applicable) - Geo Soliman DO Hospital Course (1) Colostomy in place: 71 y/o male given colostomy for perforated diverticulitis now taken back to the operating room for reversal. He was transferred to the surgical floor. Lovenox was began in the morning for DVT prophylaxis. Irvin catheter was removed and he was started on clear liquid diet. He was doing well and by day 4 was having multiple loose BMs and diet was advanced. On POD 5 he was able to tolerate a low fiber diet. He was taking Tylenol for pain. He was stable for discharge home later in the afternoon with negro drain to be removed in the office next week. Total Time Total Time Spent Total Time Spent (In Minutes): 15 Discharge Plan Discharge Items Patient Disposition: Home - Self-Care Reason For Visit: Perforation of Intestine (Nontraumatic) Other Spec Discharge Diagnosis: Colostomy reversal Activity: As commented below Lifting: No more than 10 pounds Bathing Comment: remove bandage to shower then recover after Driving/Machine Use: when pain free Non-emergency contact: Surgeon Call non-emergency contact if: you have any medication questions, your pain is not controlled, you have a fever, your temperature is above 101.5, your wound has increased redness and your wound has increased drainage Follow-up/Referrals: Geo Soliman DO [Surgeon] - 02/05/22 8:45 am Baldo Maldonado MD [Primary Care Provider] - Diet: Low Fiber Addtl Attending Provider Instructions: Pending Studies at Discharge: No Stand-Alone Forms: [facility] Sm[facility] Cessation Medications and DC Order Prescriptions: Continued acetaminophen [Tylenol Extra Strength] 500 mg tablet 1,000 mg PO HS PRN (Reason: Pain) polyethylene glycol 3350 [Miralax] 17 gram/dose powder 17 g PO QPM Rx Instructions: [id number]. esomeprazole magnesium [Nexium] 20 mg Capsule,Delayed Release(Dr/Ec) 20 mg PO QPM Rx Instructions: dinnertime melatonin 5 mg Tablet 5 mg PO HS tamsulosin [Flomax] 0.4 mg Capsule 0.4 mg PO HS Discharge Orders: Discharge Order (Routine); Ordered 01/28/22 Ordered By: Joshua Melvin/Other Patient Handouts: Post Op Pain Home Medicine Admission Data Admit Date/Time: 01/23/22 13:17 Attending Provider: Geo Soliman Admit Provider: Geo Soliman Primary Care Provider: Baldo Maldonado Other Providers: Hans Prater Other Interventions: Discharge Summary Assessment (RN) Last Done: 01/28/22 12:01 Coding Level of Care Code D/C DAY MANAGEMENT <30 MINS Diagnoses Colostomy in place Z93.3
== END 2022-01-28 14:31 | disposition home or self-care (01) | DRG 337 ==
LOC: ASU 07:59 → PACUINP 13:17 → 3W 15:25

== ENCOUNTER 2024-02-11 09:03 | Observation (INO) ==
--- NOTE | 2024-02-02 14:03 | Anesthesiology Consultation ---
Date of Service February 02, 2024 Assessment & Plan (1) Encounter for pre-operative examination: - Infectious disease screening: Per assessment on 02/02/24: No known recent infectious disease contacts or current infectious disease symptoms. - S/P Laparoscopic open camargo reversal, incisional hernia repair (01/23/2022): Grade 2 view, MAC#4, ETT 7.5 at [facility]. Chart Review Chart Review: Acceptable Risk for Surgery and Patient NOT seen in Pre Admission Testing History Surgery Operation Date: 02/11/24 10:05 Proposed Procedures p Laparoscopic Incisional Hernia Repair x4 - Geo Soliman, DO Height/Weight Height: 6 ft 1.5 in Weight: 81.647 kg Allergies Allergy/AdvReac Type Severity Reaction Status Date / Time No Known Allergies Allergy Verified 01/06/24 12:57 Medications Home Medications Medication Instructions Recorded Confirmed Last Taken melatonin 5 mg tablet 5 mg PO HS 09/18/21 02/02/24 01/22/22 21:00 acetaminophen 500 mg tablet 1,000 mg PO HS PRN Pain 12/24/21 02/02/24 01/22/22 21:00 (Tylenol Extra Strength) [place] Xl 1 tab PO QAM 02/02/24 02/02/24 Unknown calcium carbonate (Tums) 200 mg PO BID PRN acid reflux 02/02/24 02/02/24 Unknown famotidine 20 mg tablet (Pepcid AC) 20 mg PO HS 02/02/24 02/02/24 Unknown finasteride 5 mg tablet 5 mg PO QAM 02/02/24 02/02/24 Unknown polyethylene glycol 3350 17 gram 17 g PO DAILY 02/02/24 02/02/24 Unknown oral powder packet (Miralax) Past Medical History Medical History (Updated 02/02/24 @ 14:01 by Georgia Devlin) GERD (gastroesophageal reflux disease) History of COVID-19 Possible Covid 06/2020 Pt "felt" they had it, cough > resolved Hx of small bowel obstruction Incisional hernia of anterior abdominal wall without obstruction or gangrene Past Surgical History Surgical History (Updated 02/02/24 @ 14:02 by Georgia Devlin) H/O exploratory laparotomy Exploratory Laparotomy, Sigmoid Colectomy, Colostomy, Appendectomy, Abdominal Washout, Release of Small Bowel Obstruction, Umbilical Hernia Repair (09/18/21): Glidescope #4.0, ETT 8.0 at [facility]. History of colostomy reversal S/P Laparoscopic open [place] reversal, incisional hernia repair (01/23/2022): Grade 2 view, MAC#4, ETT 7.5 at [facility] History of tonsillectomy Hx of colonoscopy Social History Smoking Status: Former smoker Do You Dip or Chew Tobacco: No Smoking End Date: 2015 Hx Alcohol Use: Yes Alcohol type: beer alcohol intake frequency: a few times a week Hx Substance Use: No substance use type: does not use Lab Results Anesthesia Preop Results Results Anesthesia Widget: WBC 6.66 K/ul (4.8-10.8) 01/26/24 Hgb 15.1 g/dl (14.0-18.0) 01/26/24 Hct 44.9 % (42.0-52.0) 01/26/24 Plt 197 K/uL (130-400) 01/26/24 Na 139 mmol/L (136-145) 01/26/24 K 3.9 mmol/L (3.5-5.1) 01/26/24 Cl 107 mmol/L (98-107) 01/26/24 CO2 26 mmol/L (21-32) 01/26/24 BUN 17 mg/dl (6-23) 01/26/24 Creat 1.12 mg/dl (0.6-1.4) 01/26/24 Glucose Level 96 mg/dl (70-99(Fasting)) 01/26/24 Testing Electrocardiogram Date: 01/26/24 NSR at 76bpm. RBBB. Echocardiogram Date: 09/19/21 EF 55-60%. RV systolic function normal. No significant valvular disease- valves not well visualized.
[2024-02-11] MEDS: LACTATED RINGER'S 1,000 ML IV SCH ×2 (10:16→15:13)
[2024-02-11] MEDS ORDERED: MIDAZOLAM HCL 1 MG/ML 2ML VIAL ONE (10:27)
[2024-02-11] MEDS ORDERED: fentaNYL citrate PF 100 MCG/2 ML VIAL ONE (10:27)
[2024-02-11] MEDS ORDERED: ePHEDrine sulfate 50 MG/ML AMP IV PRN (10:45)
[2024-02-11] MEDS ORDERED: DROPERIDOL 5 MG/2 ML VIAL IV PRN (10:45)
[2024-02-11] MEDS ORDERED: ATROPINE SULFATE 0.1 MG/ML 10ML SYR IV PRN (10:45)
--- NOTE | 2024-02-11 10:48 | History & Physical Report ---
Date of Service February 11, 2024 Assessment & Plan (1) Incisional hernia of anterior abdominal wall without obstruction or ga ngrene: Plan: discussed options/risks. will proceed with laparoscopic repair of ventral ( incisional ) hernias with mesh. pt agrees with the plan History of Present Illness Primary Care Provider: Latia Lopez MD pt here for repair of his multiple abdominal hernias. no major changes since I had seen him last in the office. Allergies Allergy/AdvReac Type Severity Reaction Status Date / Time No Known Allergies Allergy Verified 02/11/24 09:53 Home Medications Medication Instructions Recorded Confirmed Type melatonin 5 mg tablet 5 mg PO HS 09/18/21 02/11/24 History acetaminophen 500 mg tablet 1,000 mg PO HS PRN Pain 12/24/21 02/11/24 History (Tylenol Extra Strength) [place] Xl 1 tab PO QAM 02/02/24 02/11/24 History calcium carbonate (Tums) 200 mg PO BID PRN acid reflux 02/02/24 02/11/24 History famotidine 20 mg tablet (Pepcid AC) 20 mg PO HS 02/02/24 02/11/24 History finasteride 5 mg tablet 5 mg PO QAM 02/02/24 02/11/24 History polyethylene glycol 3350 17 gram 17 g PO DAILY 02/02/24 02/11/24 History oral powder packet (Miralax) montelukast 10 mg tablet 10 mg PO QAM 02/10/24 02/11/24 History (Singulair) oxycodone 5 mg tablet 5 - 10 mg (1 - 2 x 5 mg) PO 02/11/24 Rx .[id number] PRN pain #15 tabs Past Med/Surg History Problem List (Updated 02/11/24 @ 10:47 by Geo Soliman DO) Incisional hernia of anterior abdominal wall without obstruction or gangrene S/P hernia repair Osteoarthritis of right hip Encounter for pre-operative examination Medical History Incisional hernia of anterior abdominal wall without obstruction or gangrene Hx of small bowel obstruction GERD (gastroesophageal reflux disease) History of COVID-19 Surgical History History of colostomy reversal Hx of colonoscopy H/O exploratory laparotomy History of tonsillectomy Social History Smoking Status: Former smoker Tobacco Type: Cigarettes Smoking End Date: quit 2015; Second Hand Exposure: No; Do You Dip or Chew Tobacco: No; Tobacco Cessation Education Requested by Patient: No Hx Alcohol Use: Yes Alcohol type: beer Hx Substance Use: No Preferred Language: [place] Communication Ability: Effective Visual Impairment: No Limitations Sand Caster Apprentice Required: No Beliefs That Will Affect Care: None marital status: Current Living Situation: Spouse How many Children do You have: 2 Other Information That Helps Us Care for You: No Feels Safe at Home: Yes Safety Concerns: Feels Safe At This Time Assistive Devices: Glasses and Hearing Aid - Bilateral Review of Systems All systems reviewed & are unremarkable except as noted in HPI & below Physical Exam Constitutional: WD/WN, vitals as above no acute distress and not ill appearing Eyes: PERRL, conjunctivae normal, anicteric sclerae EOM intact bilaterally ENMT: external ear and nose normal, oropharynx normal Ears: no hearing impairment Neck: trachea midline, no thyromegaly Respiratory: normal respiratory effort; no respiratory distress and does not use accessory muscles Cardiovascular: Rate/Rhythm: regular rate and regular rhythm Gastrointestinal (Abdomen): soft. +large LLQ hernia. reducible. multiple small midline hernias. all unchanged from prior Skin: no rashes, warm and dry Psychiatric: Orientation: alert, oriented x 3 and cooperative Results & Data Vital Signs (Past 12 Hours) Vital Signs Temp Pulse Resp BP Pulse Ox O2 Del Method 02/11/24 09:55 36.5 C 73 16 153/87 H 97 Room Air
[2024-02-11] MEDS: ceFAZolin 2000MG 2,000 MG/15 ML SYR IV SCH (11:23)
[2024-02-11] MEDS ORDERED: ONDANSETRON INJ 2 MG/ML 2 ML VIAL ONE (11:45)
[2024-02-11] MEDS ORDERED: LIDOCAINE 2% 2 ML VIAL/AMP(20MG/ML) INFIL ONE (11:45)
[2024-02-11] MEDS ORDERED: DEXAMETHASONE SOD INJ 4 MG/ML VIAL ONE (11:45)
[2024-02-11] MEDS ORDERED: PROPOFOL IV EMULSION 10 MG/ML 20 ML VIAL IV ONE (11:45)
[2024-02-11] MEDS ORDERED: ROCURONIUM BROMIDE 10 MG/ML 5 ML VIAL IV ONE (11:45)
[2024-02-11] MEDS ORDERED: PHENYLEPHRINE 100MCG/ML 10ML SYR IV ONE (11:46)
[2024-02-11] MEDS ORDERED: ePHEDrine sulfate 50 MG/5 ML SYR ONE (11:46)
[2024-02-11] MEDS ORDERED: HYDROmorphone INJ 2 MG/ML SYR/VIAL ONE (12:40)
[2024-02-11] MEDS ORDERED: ACETAMINOPHEN 1000 MG/100 ML IV IV ONE (12:49)
[2024-02-11] MEDS ORDERED: SUGAMMADEX SODIUM 200 MG/2 ML VIAL IV ONE (12:58)
[2024-02-11] MEDS: BUPIVACAINE/EPINEPHRINE 0.5% MPF 1:200,000 30 ML VIAL ONE (13:06)
--- NOTE | 2024-02-11 13:14 | Post Operative Brief Note ---
PG Immediate Post Op with CF Date of Surgery February 11, 2024 Pre & Post Diagnosis Operation Date: 02/11/24 10:40 Pre-Op Diagnosis: Incisional Hernia of Anteior Abdominal Wall ( multiple) Post-Op Diagnosis: Incisional Hernia of Anteior Abdominal Wall ( multiple. total length 23 cm I identified the patient and participated in the time-out.: Yes Procedure Operation Date: 02/11/24 10:40 Actual Procedures p Laparoscopic Repair of Mutliple Incisional Hernias with Mesh, Total Length 23cm(Not Applicable) - Geo Soliman DO Surgeon Geo Soliman DO Hose Stripper addison Hopper Estimated Blood Loss 5 Findings Consistent with Post-Op Diagnosis Specimens Specimen Description: None per surgeon Drains Irvin Catheter (16 Fr Irvin catheter inserted by Sara Ordoñez RN without difficulty. Draining clear yellow urine. Anesthesia to monitor urine output. Irvin removed at end of case. )
[2024-02-11] MEDS ORDERED: HYDROmorphone PCA 30 MG/30 ML IV PRN (13:44)
[2024-02-11] MEDS ORDERED: oxyCODONE HCL IR 5 MG TAB (IMMEDIATE RELEASE) PO PRN ×2 (13:44)
[2024-02-11] MEDS ORDERED: NALOXONE HCL 0.4 MG/1 ML VIAL/CARP IV PRN (13:44)
[2024-02-11] MEDS ORDERED: ONDANSETRON INJ 2 MG/ML 2 ML VIAL IV PRN (13:44)
[2024-02-11] MEDS: HYDROmorphone INJ 2 MG/ML SYR/VIAL IV PRN (13:50)
--- NOTE | 2024-02-11 14:30 | Operative Report ---
PG Post Operative Report Pre & Post Diagnosis Operation Date: 02/11/24 10:40 Pre-Op Diagnosis: Incisional Hernias of Anteior Abdominal Wall Post-Op Diagnosis: Incisional Hernias of Anteior Abdominal Wall ( total length 23 cm) I identified the patient and participated in the time-out.: Yes Procedure Operation Date: 02/11/24 10:40 Actual Procedures p Laparoscopic Repair of Mutliple Incisional Hernias with Mesh, Total Length 23cm(Not Applicable) - Geo Soliman DO Surgeon Geo Solmian DO Field Horticultural Specialty Grower addison Hopper Estimated Blood Loss 5 Findings Consistent with Post-Op Diagnosis Specimens none Description of Procedure After informed consent was obtained the patient was taken to the operating room and placed in supine position. After successful intubation a Irvin catheter was placed and the abdomen was sterilely prepped and draped in usual fashion. An upper midline incision was made with an 11 blade scalpel and carried down through the soft tissue using cautery. Anterior fascia was opened using cautery and two #0 Vicryl stay sutures were placed. Peritoneum was entered using blunt finger penetration and a finger sweep was performed. A 12 mm Joshua trocar was placed and the abdomen was insufflated to 18 mmHg. Laparoscope was inserted and the abdomen was examined 360 degrees. Surprisingly there were no adhesions of the small bowel to the abdominal wall. There was 1 large left lower quadrant hernia defect measuring approximately 7 cm. There were also multiple small midline hernias and a "Iraqi cheese" type of affect. Entire length of the midline incision containing hernias was somewhere around 16 cm. Again there was no incarceration. I placed a right lower quadrant 5 mm trocar a right mid abdominal 5 mm trocar and a right upper quadrant 12 mm trocar. I began by taking down the hernia sacs using the harmonic scalpel. I then began with the left lower quadrant defect. I used a 12 cm circular Surgimesh. It was placed into the abdomen via the camera port site and unrolled. A small incision was made in the central portion of the hernia defect. A fascial closure device was advanced and used to pull the central Prolene stitch bringing the mesh up as an underlay. A Reliatac device was absorbable tacks was used throughout the procedure. I used the deep tacks. I secured it with 2 rows of tacks circumferentially. I did tie down the central Prolene stitch. The mesh laid nice and flat and overlapped the defect for several centimeters in all directions. My attention then turned to the multiple "Iraqi cheese" hernia defects of the midline incision. I used the harmonic scalpel to take down part of the falciform ligament so that I could place mesh. A large 22 cm x 15 cm Surgimesh was used. I placed 0 Prolene stitches in each of the 4 corners of the mesh as well as the central portion. It was rolled up and placed into the abdominal cavity via the camera port site. I then unrolled it such that the antiadhesive barrier was facing the bowel. I began by making small stab incisions on the abdomen where all 4 corners of the mesh would go. Again the fascial closure device was used to reach through these holes and grab both arms of the Prolene sutures and pulled the mesh up under the defects as an underlay. We did tie down the Prolene sutures. I again used the Reliatac device with the deep tacks to secure the mesh in 360 degrees as well as in the central portion. At the end of the procedure the mesh laid nice and flat and tension-free. It nicely overlapped all of the defects by several cm in all directions. No other abnormalities were identified. All the trocars were removed and the abdomen was desufflated. The fascia of the camera port was closed using 0 Vicryl in a [id number] fashion. All wounds were injected with Marcaine for postoperative analgesia. 4-0 Monocryl was used to close the trocar sites. Dermabond glue was used over all the incisions as well as the poke holes. An abdominal binder was placed. The patient was awakened extubated and transferred recovery in stable condition. My nurse practitioner was present throughout the case was instrumental in assisting with running the camera placement of the mesh wound closure and dressing placement. I attest to the content of the Intraoperative Record and any orders documented therein. Any exceptions are noted below.
--- NOTE | 2024-02-11 14:48 | Anesthesiology Progress Note ---
Date of Service February 11, 2024 Anesthesia Post Procedure Vital Signs Vital Signs: Temp Pulse Pulse Resp BP Pulse Ox O2 Del Method 02/11/24 14:44 36.3 C L 87 14 107/66 93 Room Air 02/11/24 14:35 80 12 106/61 95 Nasal Cannula 02/11/24 14:25 36.3 C L 89 12 110/60 95 Nasal Cannula 02/11/24 14:15 79 13 107/59 L 97 Nasal Cannula 02/11/24 14:05 84 12 91/59 L 96 Nasal Cannula 02/11/24 13:55 88 21 102/61 97 Oxymask 02/11/24 13:45 88 19 123/68 98 Oxymask 02/11/24 13:35 88 17 132/74 100 Oxymask 02/11/24 13:28 36.0 C L 90 13 131/78 99 Oxymask 02/11/24 09:55 36.5 C 73 16 153/87 H 97 Room Air O2 Flow Rate 02/11/24 14:44 02/11/24 14:35 2 02/11/24 14:25 2 02/11/24 14:15 3 02/11/24 14:05 3 02/11/24 13:55 3 02/11/24 13:45 7 02/11/24 13:35 7 02/11/24 13:28 7 02/11/24 09:55 Pain Intensity Abdomen: Pain Intensity: 4 Transfer of Care Handoff Completed per policy Notes Mental Status: alert / awake / arousable and participated in evaluation Nausea / Vomiting: adequately controlled Pain: adequately controlled Airway Patency, RR, SpO2: stable & adequate BP & HR: stable & adequate Hydration State: stable & adequate Anesthetic Complications: no major complications apparent and Pt Satisfied with anesthetic care
[2024-02-11] MEDS: SODIUM CHLORIDE 0.9% 1,000 ML IV SCH (15:11)
[2024-02-11] MEDS: ACETAMINOPHEN 1,000 MG/100 ML VIAL IV SCH (15:23)
[2024-02-11] MEDS: FAMOTIDINE 20 MG TAB PO SCH (20:45)
[2024-02-11] MEDS: MELATONIN 3 MG TAB PO SCH (20:45)
[2024-02-12] MEDS: CALCIUM CARBONATE 500 MG CHEWABLE TAB PO PRN (01:23)
[2024-02-12 07:06] VITALS: BP 144/87; PULSE 79; RESP 16; TEMP 98.1; O2SAT 94
--- NOTE | 2024-02-12 07:52 | Surgery Progress Note ---
Date of Service February 12, 2024 Assessment & Plan (1) Incisional hernia of anterior abdominal wall without obstruction or gangrene: Plan: POD#1 laparoscopic repair of multiple incisional hernias labs pending. vitals stable pt feeling well. PROGRAM MANAGEMENT SPECIALIST never initiated as pain has been overall controlled without it tolerating diet, passing some gas incisions c/d/i and pt utilizing abdominal binder anticipate discharge to home today f/u in office with dr. yuen in 2 weeks as above. doing very well. ok for d/c. instructions given Admission and Anticipated Discharge Date Admission Date: February 11, 2024 Subjective Patient is doing well. Patient has some abdominal soreness, worse with movement, but is controlled. He is voiding. He is tolerating a diet, no n/v. + gas. Physical Exam Physical Exam: awake/alert, no distress Respiratory: normal respiratory effort Gastrointestinal (Abdomen): Inspection/Auscultation: + abdominal surgical incision (c/d/i, skin glue, no signs of infection) Percussion/Palpation: + abdomen tender (expected andreina incisional discomfort to palpation ) and abdomen soft Results & Data Vital Signs (Past 12 Hours) Vital Signs Temp Pulse Resp BP Pulse Ox O2 Del Method 02/12/24 07:05 98.1 F 79 16 144/87 H 94 Room Air 02/12/24 03:12 98.6 F 88 18 145/72 H 93 Room Air 02/12/24 01:32 95 Room Air 02/12/24 00:00 98.2 F 90 18 108/70 91 Room Air 02/11/24 20:14 97.5 F L 94 H 18 138/86 95 Room Air PG Care Time/CCT Total # of Minutes Spent Total Time Spent with Patient: Total time spent is greater than 50% in coordination of care (as documented) at patient's floor/unit and/or counseling patient: Coding Level of Care Code 04539 Post Operative Follow-Up Diagnoses Incisional hernia of anterior abdominal wall without obstruction or gangrene K43.2
[2024-02-12 08:12] LABS: Basophils # (auto) 0.02 K/uL (0.00-0.20); Basophils % (auto) 0.1 %; Hematocrit (blood only) 39.6 % (42.0-52.0); Hemoglobin 13.5 g/dl (14.0-18.0); Immature Granulocytes % (auto) 0.6 %; Lymphocytes % (auto) 9.3 %; Mean Corpuscular Hemoglobin 30.3 pg (25.0-34.0); Mean Corpuscular Hgb Conc 34.1 g/dL (32.0-36.0); Mean Platelet Volume 9.7 fL (9.4-12.4); Monocytes # (auto) 1.23 K/uL (0.11-0.59); Monocytes % (auto) 7.6 %; Neutrophils # (auto) 13.26 K/uL (1.40-6.50); Neutrophils % (auto) 82.4 %; Platelet Count 208 K/uL (130-400); RDW Coefficient of Variation 13.7 % (11.5-14.5); RDW Standard Deviation 44.3 fL (36.4-46.3); Red Blood Count 4.45 M/uL (4.70-6.10); White Blood Count 16.11 K/ul (4.8-10.8)
[2024-02-12 08:56] LABS: Calcium 9.1 mg/dl (8.6-10.3); Potassium 4.1 mmol/L (3.5-5.1)
[2024-02-12 09:02] LABS: BUN Creatinine Ratio 16.4 (10-20); Creatinine Clr Calc Pharmacy 66.5 ml/min; Est GFR (African American) 75.7 ml/min; Est GFR (Non-African American) 65.3 ml/min
[2024-02-12] MEDS: MONTELUKAST SODIUM 10 MG TABLET PO SCH (10:09)
[2024-02-12] MEDS: POLYETHYLENE (MIRALAX) 17 GM PACK PO SCH (10:09)
[2024-02-12] MEDS: FINASTERIDE 5 MG TAB PO SCH (10:09)
--- NOTE | 2024-02-15 16:46 | Discharge Summary ---
Date of Service February 12, 2024 Admission HPI Per Admitting Provider pt here for repair of his multiple abdominal hernias. no major changes since I had seen him last in the office. Principal Diagnosis Laparoscopic Repair of Mutliple Incisional Hernias with Mesh, Total Length 23cm Discharge Exam awake/alert, no distress Respiratory: normal respiratory effort Gastrointestinal (Abdomen): Inspection/Auscultation: + abdominal surgical incision (c/d/i, skin glue, no signs of infection) Percussion/Palpation: + abd omen tender (expected andreina incisional discomfort to palpation ) and abdomen soft Discharge Data Allergies Allergy/AdvReac Type Severity Reaction Status Date / Time No Known Allergies Allergy Verified 02/11/24 09:53 Procedures Performed Operation Date: 02/11/24 10:40 Actual Procedures p Laparoscopic Repair of Mutliple Incisional Hernias with Mesh, Total Length 23cm(Not Applicable) - Geo Soliman DO Hospital Course (1) Incisional hernia of anterior abdominal wall without obstruction or gangrene: Patient is a pleasant 73 yo male that underwent an elective Laparoscopic Repair of Mutliple Incisional Hernias with Mesh, Total Length 23cm, with Dr Geo Soliman DO on 02/11/24. After the procedure he was admitted to the hospital for care and observation. His diet was advanced and his pain was controlled. He was deemed stable for discharge on post operative day one 02/12/24 and he remained stable throughout his entire stay. He was given discharge instructions, followup recommendations and return precautions. Total Time Total Time Spent Total Time Spent (In Minutes): 10 Discharge Plan Discharge Items Patient Disposition: Home - Self-Care Reason For Visit: Incisional Hernia of Anteior Abdominal Wall Withou Discharge Diagnosis: Laparoscopic repair of multiple incisional hernias Activity: Per Instructions section Lifting: No more than 10 pounds Bathing Comment: you can shower; No soaking in pools/bath for 2 weeks Exercise/Sports: Wait until after follow-up appointment Driving/Machine Use: no driving while taking narcotics for pain Non-emergency contact: Surgeon Call non-emergency contact if: you have any medication questions, your pain is not controlled, you have a fever, your temperature is above 101.5, your wound has increased redness, your wound has increased drainage and your wound pain has increased Follow-up/Referrals: Geo Soliman DO [Surgeon] - 02/24/24 1:45 pm (AT THE [facility]) Latia Lopez MD [Primary Care Provider] - Diet: Regular Addtl Attending Provider Instructions: You have surgical glue called dermabond on your surgical site incisions. You may shower with this on. This will tend to come off within a couple of weeks. Do not pick at it. You may apply ice over your incision area, 20 minutes on , 20 minutes over the next week for comfort. No driving for 1 week and no driving if taking narcotic pain medication Continue to wear your abdominal binder as you tolerate. may remove it to shower and for small breaks from it if needed Pending Studies at Discharge: No Stand-Alone Forms: My [facility] Medications and DC Order Prescriptions: New oxycodone 5 mg tablet 5 - 10 mg PO .[id number] MDD no more than 6 tabs in 24hours PRN (Reason: pain) Qty: 15 0RF Continued acetaminophen [Tylenol Extra Strength] 500 mg tablet 1,000 mg PO HS PRN (Reason: Pain) melatonin 5 mg Tablet 5 mg PO HS polyethylene glycol 3350 [Miralax] 17 gram Powder In Packet 17 g PO DAILY famotidine [Pepcid AC] 20 mg Tablet 20 mg PO HS calcium carbonate [Tums] 200 mg calcium (500 mg) Tablet,Chewable 200 mg PO BID PRN (Reason: acid reflux) finasteride 5 mg tablet 5 mg PO QAM [place] Xl 1 tab PO QAM montelukast [Singulair] 10 mg Tablet 10 mg PO QAM Discharge Orders: Discharge Order (Routine); Ordered 02/12/24 Ordered By: Jennifer Melvin/Other Patient Handouts: DVT Post Op Prevention Admission Data Admit Date/Time: 02/11/24 13:21 Attending Provider: Geo Soliman Admit Provider: Geo Soliman Primary Care Provider: Latia Lopez Other Interventions: Discharge Summary Assessment (RN) Last Done: 02/12/24 11:10 Coding Level of Care Code 45462 IN/OBS DISCH 30 MIN/LESS Diagnoses Incisional hernia of anterior abdominal wall without obstruction or gangrene K43.2
== END 2024-02-12 12:18 | disposition home or self-care (01) ==
LOC: 3N 09:03 → ASU 09:03

== ENCOUNTER 2024-04-22 06:58 | Observation (INO) ==
--- NOTE | 2024-03-16 11:10 | PAT Medication Instructions ---
Medication Instructions Date of Service March 16, 2024 Home Medications melatonin 5 mg tablet 5 mg PO HS acetaminophen 500 mg tablet (Tylenol Extra Strength) 1,000 mg PO HS PRN [place] Xl 1 tab PO QAM calcium carbonate (Tums) 200 mg PO BID PRN famotidine 20 mg tablet (Pepcid AC) 20 mg PO HS finasteride 5 mg tablet 5 mg PO QAM polyethylene glycol 3350 17 gram oral powder packet (Miralax) 17 g PO DAILY PRN fluticasone propionate 50 mcg/actuation nasal spray,suspension 1 spray intran talat QAM STOP taking 2 weeks before surgery (or as soon as possible if surgery is within 2 weeks) [place] Xl 1 tab PO QAM DO NOT take the morning of surgery calcium carbonate (Tums) 200 mg PO BID PRN polyethylene glycol 3350 17 gram oral powder packet (Miralax) 17 g PO DAILY PRN Take morning of surgery With a small sip of water, OTHERWISE NOTHING TO EAT OR DRINK AFTER MIDNIGHT: finasteride 5 mg tablet 5 mg PO QAM fluticasone propionate 50 mcg/actuation nasal spray,suspension 1 spray intranasal QAM Take evening before surgery melatonin 5 mg tablet 5 mg PO HS acetaminophen 500 mg tablet (Tylenol Extra Strength) 1,000 mg PO HS PRN(if needed) calcium carbonate (Tums) 200 mg PO BID PRN(if needed) famotidine 20 mg tablet (Pepcid AC) 20 mg PO HS Other Notes If you have any questions please call us at [phone] or [phone] or [phone] or [phone]
--- NOTE | 2024-03-22 13:35 | Anesthesiology Consultation ---
Date of Service March 22, 2024 Assessment & Plan (1) Encounter for pre-operative examination: - Infectious disease screening: Per assessment on 03/22/24: No known recent infectious disease contacts or current infectious disease symptoms. - Outpatient joint assessment: Pt currently scheduled for inpatient pathway. If surgeon requests review for outpatient joint pathway, patient is an acceptable candidate for outpatient joint program from anesthesia standpoint pending surgeon's office assessment that patient is motivated, has good support and completes Same Day Joint Program preop requirements. - S/P Laparoscopic Repair of Incisional Hernias with Mesh (02/11/24): Grade 1 view, Glidescope#3, ETT 7.5 at [facility] - General surgery visit (03/22/24): "History of incisional hernia repair.. He is doing well. We discussed progression of his activities what he may and may not do. Follow-up as needed.. His incisions are all well-healed and the hernias feel solid" Chart Review Chart Review: Acceptable Risk for Surgery and Patient seen in Pre Admission Testing Teaching & Discussion Pre-Anesthesia Teaching/Discussion Notes: Instructed NPO after midnight before surgery,except medications with 15 cc of water. Medication instructions provided according to the PAT guidelines. History Surgery Operation Date: 04/22/24 08:00 Proposed Procedures p Right Anterior Total Hip Arthroplasty - Marty Galvez DO Height/Weight Height: 6 ft 1.5 in Weight: 85.3 kg Allergies Allergy/AdvReac Type Severity Reaction Status Date / Time No Known Allergies Allergy Verified 03/22/24 12:50 Medications Home Medications Medication Instructions Recorded Confirmed Last Taken melatonin 5 mg tablet 5 mg PO HS 09/18/21 03/22/24 02/10/24 22:00 acetaminophen 500 mg tablet 1,000 mg PO HS PRN Pain 12/24/21 03/22/24 02/10/24 22:00 (Tylenol Extra Strength) [place] Xl 1 tab PO QAM 02/02/24 03/22/24 02/10/24 15:00 calcium carbonate (Tums) 200 mg PO BID PRN acid reflux 02/02/24 03/22/24 Unknown famotidine 20 mg tablet (Pepcid AC) 20 mg PO HS 02/02/24 03/22/24 Unknown finasteride 5 mg tablet 5 mg PO QAM 02/02/24 03/22/24 02/10/24 10:00 polyethylene glycol 3350 17 gram 17 g PO DAILY PRN Constipation 02/02/24 03/22/24 02/10/24 12:00 oral powder packet (Miralax) fluticasone propionate 50 1 spray intranasal QAM 03/16/24 03/22/24 Unknown mcg/actuation nasal spray,suspension Past Medical History Medical History GERD (gastroesophageal reflux disease) Hx of small bowel obstruction 2021 Osteoarthritis Exercise / Class Metabolic Activity II 4-5 Yardwork/Stairs/Walk up hill (one FS: No CP, no SOB) Past Surgical History Surgical History H/O exploratory laparotomy Exploratory Laparotomy, Sigmoid Colectomy, Colostomy, Appendectomy, Abdominal Washout, Release of Small Bowel Obstruction, Umbilical Hernia Repair (09/18/21): Glidescope #4.0, ETT 8.0 at [facility] History of appendectomy History of colostomy reversal S/P Laparoscopic open camargo reversal, incisional hernia repair (01/23/2022): Grade 2 view, MAC#4, ETT 7.5 at [facility] History of incisional hernia repair Laparoscopic Repair of Incisional Hernias with Mesh (02/11/24): Grade 1 view, Glidescope#3, ETT 7.5 at [facility] History of tonsillectomy History of tooth extraction Hx of colonoscopy Past Anesthesia History No Hx of Anesthesia Complications and No Family Hx of Anesthesia Complications History of PONV No Hx of PONV and No Hx of Motion Sickness Social History Smoking Status: Former smoker Do You Dip or Chew Tobacco: No Smoking End Date: Quit 2015 Hx Alcohol Use: Yes Alcohol type: beer alcohol intake frequency: a few times a week Hx Substance Use: No substance use type: does not use Review of Systems Patient denies chest pain, shortness of breath, dyspnea on exertion, fever, chills, cough, wheezing, palpitations. Physical Exam Vital Signs BP 111/79 P 77 TEMP 97.9 SP02 95%RA RESP 18 Physical Full cervical extension range of motion. Full TMJ range of motion. TMD > 3.5 finger breaths Mallampati Score II Dentition: missing sides/molars, several crowns Lungs: clear throughout to auscultation Cardiac: regular rate and rhythm, no murmurs noted Spine: normal Carotid arteries: negative bruit Extremities: no LE edema Lab Results Anesthesia Preop Results Results Anesthesia Widget: WBC 8.85 K/ul (4.8-10.8) 03/22/24 Hgb 14.3 g/dl (14.0-18.0) 03/22/24 Hct 42.4 % (42.0-52.0) 03/22/24 Plt 230 K/uL (130-400) 03/22/24 Na 139 mmol/L (136-145) 03/22/24 K 4.1 mmol/L (3.5-5.1) 03/22/24 Cl 107 mmol/L (98-107) 03/22/24 CO2 25 mmol/L (21-32) 03/22/24 BUN 16 mg/dl (6-23) 03/22/24 Creat 1.03 mg/dl (0.6-1.4) 03/22/24 Glucose Level 68 mg/dl (70-99(Fasting)) L 03/22/24 PT 10.8 Seconds (9.0-12.0) 03/22/24 PTT 29 Seconds (21-31) 03/22/24 INR 1.0 (0.9-1.1) 03/22/24 Blood Type O Positive 03/22/24 Antibody Screen NEGATIVE 03/22/24 Testing Electrocardiogram Date: 01/26/24 NSR at 76bpm. RBBB. Chest X-Ray Date: 03/22/24 FINDINGS: Hyperinflation. No pneumothorax, pleural effusion or overt pulmonary edema. Unchanged left midlung nodular focus. Bones appear grossly intact. IMPRESSION: No acute process. Echocardiogram Date: 09/19/21 EF 55-60%. RV systolic function normal. No significant valvular disease- valves not well visualized.
--- NOTE | 2024-04-21 06:40 | History & Physical Report ---
Date of Service April 21, 2024 Assessment & Plan (1) Osteoarthritis of right hip: We will proceed with a right anterior total of arthroplasty. Postoperatively he will be started on aspirin for DVT prophylaxis and kept overnight in the hospital for postop medical management. He plans to have the hospital set up home health for discharge. History of Present Illness Chief Complaint: Osteoarthritis of the right hip. Primary Care Provider: Latia Lopez MD Bobby is a pleasant 73-year-old male who has been dealing with chronic increasing right hip and groin pain. He has been treated by another provider. He is really struggling with his right hip. It has been worse over the last year. X-rays from an outside institution have shown advanced arthritis of his right hip. After failed conservative treatment, he has elected to proceed with a right anterior total of arthroplasty. . Allergies Allergy/AdvReac Type Severity Reaction Status Date / Time No Known Allergies Allergy Verified 03/22/24 12:50 Home Medications Medication Instructions Recorded Confirmed Type melatonin 5 mg tablet 5 mg PO HS 09/18/21 03/22/24 History acetaminophen 500 mg tablet 1,000 mg PO HS PRN Pain 12/24/21 03/22/24 History (Tylenol Extra Strength) [place] Xl 1 tab PO QAM 02/02/24 03/22/24 History calcium carbonate (Tums) 200 mg PO BID PRN acid reflux 02/02/24 03/22/24 History famotidine 20 mg tablet (Pepcid AC) 20 mg PO HS 02/02/24 03/22/24 History finasteride 5 mg tablet 5 mg PO QAM 02/02/24 03/22/24 History polyethylene glycol 3350 17 gram 17 g PO DAILY PRN Constipation 02/02/24 03/22/24 History oral powder packet (Miralax) fluticasone propionate 50 1 spray intranasal QAM 03/16/24 03/22/24 History mcg/actuation nasal spray,suspension Past Med/Surg History Problem List History of incisional hernia repair Laparoscopic Repair of Incisional Hernias with Mesh (02/11/24): Grade 1 view, Glidescope#3, ETT 7.5 at [facility] Medical History Osteoarthritis Hx of small bowel obstruction 2021 GERD (gastroesophageal reflux disease) Surgical History History of tooth extraction History of appendectomy History of colostomy reversal S/P Laparoscopic open [place] reversal, incisional hernia repair (01/23/2022): Grade 2 view, MAC#4, ETT 7.5 at [facility] Hx of colonoscopy H/O exploratory laparotomy Exploratory Laparotomy, Sigmoid Colectomy, Colostomy, Appendectomy, Abdominal Washout, Release of Small Bowel Obstruction, Umbilical Hernia Repair (09/18/21): Glidescope #4.0, ETT 8.0 at [facility] History of tonsillectomy Social History Smoking Status: Former smoker Tobacco Type: Cigarettes Smoking End Date: Quit 2015; Second Hand Exposure: Yes (as a child); Do You Dip or Chew Tobacco: No; Hx Alcohol Use: Yes Alcohol type: beer Hx Substance Use: No Preferred Language: Sudanese Communication Ability: Effective Visual Impairment: No Limitations Building Carpenter Required: No Beliefs That Will Affect Care: None marital status: Current Living Situation: Spouse How many Children do You have: 2 Feels Safe at Home: Yes Safety Concerns: Feels Safe At This Time Assistive Devices: Cane, Glasses, Hearing Aid - Bilateral and Walker Review of Systems All systems reviewed & are unremarkable except as noted in HPI & below. Physical Exam On physical exam of the right hip, he has pain with internal/external rotation. All of his pain is located in his groin. Constitutional WD/WN, vitals as above Eyes PERRL, conjunctivae normal, anicteric sclerae ENMT external ear and nose normal, oropharynx normal Neck trachea midline, no thyromegaly Respiratory normal respiratory effort Cardiovascular RRR, no murmur, no edema Gastrointestinal (Abdomen) normal bowel sounds, soft, nontender, no hepatosplenomegaly Psychiatric A+Ox3, euthymic affect Results & Data Results & Data Laboratory Results . Diagnostic Findings X-rays of the right hip show advanced osteoarthritis with joint space narrowing, osteophyte formation, and [id number]-cw-krog articulation. PG Care Time/CCT Total # of Minutes Spent Total Time Spent with Patient: Total time spent is greater than 50% in coordination of care (as documented) at patient's floor/unit and/or counseling patient: Coding Level of Care Code None Diagnoses Osteoarthritis of right hip M16.11
[~2024-04-22 06:58] MED LIST changes: +BUPIVACAINE 0.5 % 5 MG/1 ML PF 10ML VIAL ONE; -CIPROFLOXACIN / D5W 400 MG/200 ML BAG IV SCH; -LR 15ML/HR IV SCH; -PROPOFOL IV EMULSION 10 MG/ML 20 ML VIAL IV ONE; -metroNIDAZOLE 500 MG/100 ML BAG IV SCH
--- OUTSIDE RECORDS SUMMARY | 2024-04-22 07:06 | External Medical Summary | Summary of Care ---
Author Name Unknown Organization [facility] Address [address] [place] [address] Phone [phone] Care Team Providers Care Pharmacy Ancillary Name Role Phone Latia Lopez MD Primary Care Provide r Reason for Visit * Reason Onset Date Comments Health Maintenance 04/20/2024 Encounter Details Date Type Department Care Team (Late st Contact Info) Description 04/20/2024 Telephone [address] [phone] Latia Lopez MD [address] [place] [address] [place], [place] [id number] Health Maintenance Allergies No known active allergiesdocumented as of this encounter (statuses as of 04/20/2024) Medications Medication Sig Dispensed Refills Start Date End Date Status Melatonin 5 MG Oral Tablet Take 1 Tablet by mouth at bedtime. 09/28/2021 Active Acetaminophen 325 MG Oral Tablet Take 2 Tablets by mouth every 6 hours as needed for Pain, Moderate. Active Famotidine 10 MG Oral Tablet (Pepcid AC) Take 1 Tablet by mouth in the morning and 1 Tablet before bedtime. Active Calcium Carbonate Antacid 500 MG Oral Tablet Chewable (Tums) Take 1 Tablet by mouth in the morning. Active Finasteride 5 MG Oral Tablet (Proscar) Take 1 Tablet by mouth in the morning. 90 Tablet 3 12/15/2023 Active Loratadine 10 MG Oral Tablet (Claritin)Indications: Ear congestion, bilateral Take 1 Tablet by mouth every night at bedtime. 30 Tablet 4 12/30/2023 Active Zoster Vac Recomb Adjuvanted 50 MCG/0.5ML Intramuscular Suspension Reconstituted (Shingrix)Indications: Need for shingles vaccine Inject 0.5 mL into a large muscle now and repeat dose in 60 to 180 days 1 Each 1 12/30/2023 Active Montelukast Sodium 10 MG Oral Tablet (Singulair)Indications :Ear congestion, bilateral Take 1 Tablet by mouth in the morning. 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 02/26/2022 Other male erectile dysfunction 07/16/2021 documented as of this encounter (statuses as of 04/20/2024) Immunizations Name Administration Dates Next Due COVID-19 mRNA, LNP-s, No Pre serve, 2-Dose Series (Moderna) 10/17/2020,09/12/2020 documented as of this encounter Social History Tobacco Use Types Packs/Day Years Used Date Smoking Tobacco: Former Cigarettes 1 42.7 0 1972 - 08/04/2015 Smokeless Tobacco: Never Alcohol Use Standard Drinks/Week Comments Yes 0 (1 standard drink = 0.6 oz pur e alcohol) PHQ-2 Answer Date Recorded PHQ Adult Total Score 0 08/27/2022 Hunger Vital Sign Answer Date Recorded Within the past 12 months, y ou worried that your food would run out before you got the money to buy more. Never true 08/14/19 24 Within the past 12 months, t he food you bought just didn't last and you didn't have money to get more. Never true 08/14/2023 Childcare Answer Date Recorded Do you feel overwhelmed with taking care of a child, family member or friend? No 08/14/2023 Does your family need help f inding childcare? (Household - for ages 0-17 years) Not on file 08/14/2023 Clothing Answer Date Recorded Have you been unable to get clothing when it was really needed? No 08/14/2023 Is your family able to get c lothes or diapers when needed? (Household - for ages 0-17 years) Not on file 08/14/2023 Personal Safety Answer Date Recorded Do you feel unsafe or have concerns for your saf ety? No 08/14/2023 Do you have concerns for you r family's safety? (Household - for ages 0-17 years) Not on file 08/14/2023 Utilities Answer Date Recorded Do you have trouble paying y our heating, water, or electric bill? No 08/14/2023 Is your family able to pay t he heat, water, or electric bill? (Household - for ages 0-17 years) Not on file 08/14/2023 Does your family have access to good internet? (Household - for ages 0-17 years) Not on file 08/14/2023 Employment Status Answer Date Recorded Are you unemployed or without regular income? No 08/14/2023 Does the household have a [facility] source of income? (Household - for ages 0-17 years) Not on file 08/14/2023 Social Connections Answer Date Recorded How often do you feel lonely or isolated from th ose around you? Never 08/14/2023 Financial Resource Strain Answer Date R ecorded Do you have any trouble payi ng for your medications, or do you think you might in the future? No 08/14/2023 Does your family have troubl e paying for medicine? (Household - for ages 0-17 years) Not on file 08/14/2023 Transportation Needs Answer Date Record ed READ ONLY Do you have troubl e getting a ride to medical visits or work? Never True 08/14/2023 Does your family have a hard time getting a ride to doctors visits? (Household - for ages 0-17 years) Not on file 08/14/2023 Has lack of transportation k ept you from medical appointments, meetings, work, or from getting things needed for daily living? Check all that apply. (Adult - for ages 18 years and over) Not on file 08/14/2023 Do you (or your family) have trouble finding or paying for a ride (transportation)? (Household - for ages 0-17 years) Not on file 08/14/2023 Housing Stability Answer Date Recorded Do you currently live in a s helter or have no steady place to sleep at night? No 08/14/2023 READ ONLY Do you think you a re at risk of becoming homeless? No 08/14/2023 Does your family worry about paying for your home or becoming homeless? (Household - for ages 0-17 years) Not on file 0 08/14/2023 Are you homeless or worried that you might be in the future? (Adult - for ages 18 years and over) Not on file Are you (or your family) fareed eless or worried that you might be in the future? (Household - for ages 0-17 years) Not on file Food Insecurity Answer Date Recorded Do you need food for this week? No 08/14/2023 Are you able to get enough f ood for your family? (Household - for ages 0-17 years) Not on file 08/14/2023 Does your family need food t his week? (Household - for ages 0-17 years) Not on file 08/14/2023 Do you always have enough fo od for your family? (Household - for ages 0-17 years) Not on file 08/14/2023 Sex and Gender Information Value Date Recorded Sex Assigned at Male 08/14/2023 2:30 PM EST Gender Identity Male 08/14/2023 2:30 PM EST Sexual Orientation Straight 08/14/2023 2: 30 PM EST Job Start Date Occupation Industry Not on file Not on file Not on file documented as of this encounter Miscellaneous Notes * Telephone Encounter - Brittany Funez LPN - 04/20/2024 3:43 PM EDT Care Gaps Comprehensive Care Outreach Last Office/Telemedicine Visit: 12/30/2023 (in office), Visit date not found (telemedicine) Next Office Visit: Visit date not found Hemoglobin AIC Results: Lab Results Component Value Date/Time HEMOGLOBIN A1C - [facility] 5.7 (H) 08/25/2023 10:10 AM BP Readings from Last 1 Encounters: 12/30/23 126/84 Reviewed Health Maintenance below: Health Maintenance Topic Date Due DTap/Tdap Vaccines (1 - Tdap) Never done Lung Cancer Screening Never done Zoster Vaccines (1 of 2) Never done Pneumococcal Vaccine: 65+ Years (1 of 1 - PCV) Never done Adult Wellness Visit Never done ov Care Gap Outreach Action Taken: Left message documented in this encounter Plan of Treatment Upcoming Encounters Date Type Department Care Team (Late st Contact Info) Description 07/13/2024 11:45 AM EST Office Visit Urology, [facility] [address] [facility] [place] [address] Herb Ryan MD [address] [place] [address] Health Maintenance Due Date Last Done Comments DTap/Tdap Vaccines (1 - Tdap) [birth year]02/1969 Lung Cancer Screening 1998 Zoster Vaccines (1 of 2) 1998 Pneumococcal Vaccine: 65+ Years (1 of 1 - PCV) 2013 Adult Wellness Visit 2014 Depression Screening 08/28/2023 08/27/2022 COVID-19 Vaccine (4 2023-2 5 season) 2024 04/16/2022, 10/17/2020, 09/12/2020 Influenza Vaccine (FLU shot) (#1) 2024 Colonoscopy Discontinued 01/22/2022 Colorectal Cancer Screening Discontinued Cologuard Discontinued Fecal Occult Blood Test Discontinued HPV (Gardasil) Vaccine Aged Out No lo nger eligible based on patient's age to complete this topic Hepatitis B Vaccine Aged Out No longe r eligible based on patient's age to complete this topic MENINGOCOCCAL (MENACTRA/MENVEO) Aged Out No longer eligible based on patient's age to complete this topic Sigmoidoscopy Discontinued documented as of this encounter Medical Devices Not on filedocumented as of this encounter Care Teams Pharmacy Ancillary Relationship Specialty Start Date End Date Latia Lopez MD [address] [place] [address] [place] [address] PCP - General Family Medicine 08/25/23 documented as of this encounter
--- OUTSIDE RECORDS SUMMARY | 2024-04-22 07:06 | External Medical Summary | Summary of Care ---
Author Name Unknown Organization [facility] Address [address] [place] [address] Phone [phone] Care Team Providers Care Curtain Stitcher Name Role Phone Latia Lopez MD Primary Care Provide r Reason for Visit * Reason Onset Date Comments Health Maintenance 04/20/2024 Encounter Details Date Type Department Care Team (Late st Contact Info) Description 04/20/2024 [address]phone [address] Medicine [address] [phone] Latia Lopez MD [address] [place] [address] [place], [place] [phone] Health Maintenance Allergies No known active allergiesdocumented as of this encounter (statuses as of 04/21/2024) Medications Medication Sig Dispensed Refills Start Date [...] as of this encounter (statuses as of 04/21/2024) Active Problems Problem Noted Date Diagnosed Date Laryngopharyngeal reflux 04/10/2016 Osteoarthritis of both knees documented as of this encounter (statuses as of 04/21/2024) Resolved Problems Problem Noted Date Diagnosed Date Resolved Date Status post Eagle's procedure 10/07/2021 02/26/2022 Other male erectile dysfunction 07/16/2021 documented as of this encounter (statuses as of 04/21/2024) Immunizations Name Administration Dates Next Due COVID-19 [...] No 08/14/2023 Does the household have a [facility] source of income? (Household - for ages [...] Care Team (Late st Contact Info) Description 05/26/2024 9:00 AM EST Office Visit Family Medicine [address] [place] [phone] Latia Lopez MD [address] [place] [address] [place] [address] 07/13/2024 11:45 AM EST Office Visit Urology, [facility] [address] [facility] [place] [address] Herb Ryan MD [address] [facility] [place] [address] Health Maintenance Due Date Last Done Comments DTap/Tdap Vaccines (1 - Tdap) [birth year]/02/1969 Lung Cancer Screening 1998 Zoster Vaccines (1 of 2) 1998 Pneumococcal Vaccine: 65+ Years (1 of 1 - PCV) 2013 Adult Wellness Visit 2014 Depression Screening 08/28/2023 08/27/2022 COVID-19 Vaccine (4 - 2023-2 5 season) 2024 04/16/2022, 10/17/2020, 09/12/2020 [...] filedocumented as of this encounter Care Teams Curtain Stitcher Relationship Specialty Start Date End Date Latia Lopez MD [address] [place] [address] [place] [phone] PCP - General Family Medicine 08/25/23 documented as of this encounter
--- OUTSIDE RECORDS SUMMARY | 2024-04-22 07:06 | External Medical Summary | Summary of Care ---
Author Name Unknown Organization [facility] Address [address] [place] [address] Phone [phone] Care Team Providers Care Penology Professor Name Role Phone Latia Lopez MD Primary Care Provide r Encounter Details Date Type Department Care Team (Late st Contact Info) Description 12/30/2023 Telephone Family Medicine [address] [place] [phone] Latia Lopez MD [address] [place] [address] [place] [id number] Allergies No known active allergiesdocumented as of this encounter (statuses as of 03/30/2024) Medications Medication Sig Dispensed Refills Start Date [...] 12/15/2023 Active Loratadine 10 MG Oral Tablet (Claritin)Indication s:Ear congestion, bilateral Take 1 Tablet by mouth every night at bedtime. 30 Tablet 4 12/30/2023 Active Zoster Vac Recomb Adjuvanted 50 MCG/0.5ML Intramuscular Suspension Reconstituted (Shingrix)Indication s:Need for shingles vaccine Inject 0.5 mL into a large muscle now and repeat dose in 60 to 180 days 1 Each 1 12/30/2023 Active Fluticasone Propionate 50 MCG/ACT Nasal Suspension (Flonase)Indications :Ear congestion, bilateral Administer 1 Rogers into each nostril in the morning and 1 Rogers in the evening. Do all this for 5 days. 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 (Household - for ages [...] encounter Miscellaneous Notes * Telephone Encounter - Jodi Arango OSA - 12/30/2023 5:46 PM EDT Pt wanted to schedule on his own for the surgery referral. I did print referral just incase he wanted to go outside [facility]. It sounds like he will not be doing that though. He also did not want meto schedule the 6 month return either. documented in this encounter Plan of Treatment Upcoming Encounters Date Type Department Care Team (Late st Contact Info) Description 07/13/2024 11:45 AM EST Office Visit Urology, [facility] [address] [place] [address] Herb Ryan MD [address] [place] [id number] Health Maintenance Due Date Last Done Comments [...] filedocumented as of this encounter Care Teams Penology Professor Relationship Specialty Start Date End Date Latia Lopez MD [address] [place] [address] [place] [address] PCP - General Family Medicine 08/25/23 documented as of this encounter
[2024-04-22] MEDS: GABAPENTIN 300 MG CAP PO SCH (07:41)
[2024-04-22] MEDS: ACETAMINOPHEN 500 MG TAB PO SCH (07:41)
[2024-04-22] MEDS: LR 60ML/HR IV SCH (07:42)
[2024-04-22] MEDS: dexAMETHasone**PF** 10 MG/ML VIAL IV SCH (07:42)
[2024-04-22] MEDS: LR 500ML BOLUS, THEN 15ML/HR IV SCH (07:42)
[2024-04-22] MEDS ORDERED: ePHEDrine sulfate 50 MG/ML AMP IV PRN (08:06)
[2024-04-22] MEDS ORDERED: ATROPINE SULFATE 0.1 MG/ML 10ML SYR IV PRN (08:06)
[2024-04-22] MEDS ORDERED: ONDANSETRON INJ 2 MG/ML 2 ML VIAL IV PRN ×2 (08:06→11:08)
[2024-04-22] MEDS ORDERED: fentaNYL citrate PF 100 MCG/2 ML VIAL IV PRN (08:06)
[2024-04-22] MEDS ORDERED: fentaNYL citrate PF 100 MCG/2 ML VIAL ONE (08:24)
[2024-04-22] MEDS ORDERED: MIDAZOLAM HCL 1 MG/ML 2ML VIAL ONE (08:24)
[2024-04-22] MEDS ORDERED: PROPOFOL IV EMULSION 10 MG/ML 20 ML VIAL IV ONE (08:57)
[2024-04-22] MEDS: TRANEXAMIC ACID 1,000 MG **IV Pre-op IV SCH (09:00)
--- NOTE | 2024-04-22 09:19 | History & Physical Bridge Note ---
Date of Service April 22, 2024 History & Physical Bridge Note I have examined the patient, reviewed the History & Physical and in the interval since the performance of the History & Physical I have noted the following changes of clinical significance: no changes noted
[2024-04-22] MEDS: ceFAZolin 2000MG 2,000 MG/15 ML SYR IV SCH ×2 (09:22→17:40)
[2024-04-22] MEDS ORDERED: PHENYLEPHRINE 100MCG/ML 5ML SYR ONE (09:43)
[2024-04-22] MEDS ORDERED: ONDANSETRON INJ 2 MG/ML 2 ML VIAL ONE (09:43)
[2024-04-22] MEDS ORDERED: ePHEDrine sulfate 50 MG/5 ML SYR ONE (09:43)
[2024-04-22] MEDS: ORTHO JOINT ANESTHETIC ONE (09:57)
[2024-04-22] MEDS: ROPIV 0.5% 246mg, Ketorolac 30mg, EPINEPHrine 0.5mg in NSS INFIL SCH (09:57)
[2024-04-22] MEDS: TRANEXAMIC ACID 1,000 MG **IV Intra-op IV SCH (10:36)
--- NOTE | 2024-04-22 10:40 | Operative Report ---
PG Post Operative Report Pre & Post Diagnosis Operation Date: 04/22/24 09:00 Pre-Op Diagnosis: Right Hip Osteoarthritis Post-Op Diagnosis: Right Hip Osteoarthritis I identified the patient and participated in the time-out.: Yes Procedure Operation Date: 04/22/24 09:00 Actual Procedures p Right Anterior Total Hip Arthroplasty, Uncemented(Right) - Marty Galvez DO Surgeon Marty Galvez DO Boss Dyer Sunita Leong PA-C Estimated Blood Loss 200 Findings Consistent with Post-Op Diagnosis Specimens Right femoral head Description of Procedure Implants used I used a ZimmerBiomet total hip arthroplasty system with a size 6.5 high offset Avenir Complete stem, a 54 mm G7 cup with a 25mm screw, an E1 polyethylene angel er, a 40 mm ceramic head with a +10.5 neck. Bobby arrived at the hospital for the above procedure. He was seen in the preoperative holding area and the operative extremity was identified and signed. He was given a spinal anesthetic, a preoperative antibiotic, and TXA. He was then taken back to the operating room and laid on the table in the supine position. He was given basic sedation. The operative leg was secured to a Puristst leg positioner. The hip was then prepped and draped in sterile fashion. A timeout was done and the patient and the operative extremity was properly identified. An anterior approach was used. Dissection was taken down through the fascia and the tensor muscle belly was retracted laterally and the rectus was retracted medially. The circumflex vessels were identified and ligated. The capsule was then incised and tagged for later repair. The femoral neck was then cut and the femoral head was removed. The acetabulum was exposed. Time was spent doing a complete circumferential labral release. Sequential reaming of the acetabulum up to a size 53 reamer was done. Final reamings were done under fluoroscopy to ensure appropriate version. A Biomet 54 mm G7 cup was then impacted into place. A single 25 mm screw was placed. The E1 polyethylene liner was then snapped into place. Surrounding soft tissues were then injected with 100 cc of an orthopedic pain control cocktail. The proximal femur was then exposed. Sequential broaching up to a size 6.5 broach was done. Off that broach a size 40 head with a +10.5 neck was trialed. The hip was reduced and fluoroscopic images showed anatomic alignment of the implants in acceptable length. The broach was removed. The final size 6.5 high offset Avenir Complete stem was then impacted into place. A ceramic 40 mm head with a +10.5 neck was then impacted onto the stem and the hip was reduced. Final fluoroscopic images showed anatomic alignment of the hip. The capsule was then closed with #1 Vicryl suture. A dilute betadyne lavage was then done for 3 minutes. The joint was then irrigated with normal saline solution. The fascia was closed with #1 PDS suture. Skin was closed with 2-0 Vicryl, dileep, and a Silverlon dressing. He was then transferred to a hospital bed and taken to the post anesthesia care unit in stable condition. He tolerated the procedure well. Sunita Leong PA-C, was present for the entire procedure. He was critical for patient positioning, prepping, draping, retraction exposure, wound closure and application of sterile dressing. I attest to the content of the Intraoperative Record and any orders documented therein. Any exceptions are noted below.
--- NOTE | 2024-04-22 10:49 | Fluoroscopy Report ---
FL hip RT 1V CLINICAL HISTORY: RIGHT ANTERIOR HIP COMPARISON STUDY: None FLUOROSCOPY TIME: 17.1 seconds FLUOROSCOPY IMAGES: 1 EXPOSURE DOSE: 1.6944 mGy FINDINGS: Right hip arthroplasty demonstrates satisfactory alignment. Expected postoperative soft tis inderjit swelling with deep tissue air. No acute fracture or malalignment. IMPRESSION: Right hip arthroplasty with expected postoperative changes. ACT 112: Negative or not required by law. Electronically signed by: Kennedy Liu M.D. 04/22/2024 10:48 AM
[2024-04-22] MEDS ORDERED: SODIUM CHLORIDE 0.9% PF INJ 10 ML VIAL ONE (11:02)
[2024-04-22] MEDS ORDERED: oxyCODONE HCL IR 5 MG TAB (IMMEDIATE RELEASE) PO PRN (11:08)
[2024-04-22] MEDS ORDERED: HYDROmorphone INJ 1 MG/ML SYRINGE IV PRN (11:08)
[2024-04-22] MEDS ORDERED: ACETAMINOPHEN 1,000 MG/100 ML VIAL IV PRN (11:08)
[2024-04-22] MEDS ORDERED: HYDROmorphone INJ 0.5 MG/0.5 ML SYR IV PRN (11:08)
[2024-04-22] MEDS ORDERED: NALOXONE HCL 0.4 MG/1 ML VIAL/CARP IV PRN (11:08)
[2024-04-22] MEDS ORDERED: diphenhydrAMINE Capsule 25 MG CAP PO PRN (11:08)
[2024-04-22] MEDS ORDERED: METOCLOPRAMIDE HCL INJ 5 MG/ML 2 ML VIAL IV PRN (11:08)
[2024-04-22] MEDS ORDERED: MAGNESIUM HYDROXIDE SUSP 30 ML UDC PO PRN (11:08)
[2024-04-22] MEDS ORDERED: bisacodyL 10 MG SUPP PR PRN (11:08)
[2024-04-22] MEDS ORDERED: POLYETHYLENE (MIRALAX) 17 GM PACK PO PRN (11:11)
[2024-04-22] MEDS ORDERED: CALCIUM CARBONATE 500 MG CHEWABLE TAB PO PRN (11:11)
[2024-04-22] MEDS: KETOROLAC TROMETHAMINE 15 MG/ML VIAL IV SCH (13:42)
--- NOTE | 2024-04-22 14:03 | Anesthesiology Progress Note ---
Date of Service April 22, 2024 Anesthesia Post Procedure Vital Signs Vital Signs: Temp Pulse Pulse Resp BP Pulse Ox O2 Del Method 04/22/24 13:10 36.4 C L 86 16 117/74 95 Room Air 04/22/24 12:25 36.4 C L 90 17 104/75 95 Room Air 04/22/24 12:15 87 12 118/70 95 Room Air 04/22/24 12:05 86 14 117/61 96 Room Air 04/22/24 11:55 82 16 119/70 94 Room Air 04/22/24 11:45 89 18 103/69 95 Room Air 04/22/24 11:35 93 H 17 98/62 L 94 Room Air 04/22/24 11:25 88 15 108/60 99 Oxymask 04/22/24 11:15 97 H 17 106/66 98 Oxymask 04/22/24 11:08 36 C L 96 H 17 110/68 95 Oxymask 04/22/24 07:51 36.6 C 74 20 142/92 H 96 Room Air O2 Flow Rate 04/22/24 13:10 04/22/24 12:25 04/22/24 12:15 04/22/24 12:05 04/22/24 11:55 04/22/24 11:45 04/22/24 11:35 04/22/24 11:25 5 04/22/24 11:15 5 04/22/24 11:08 5 04/22/24 07:51 Transfer of Care Handoff Completed per policy Notes Mental Status: alert / awake / arousable Patient Amnestic to Procedure: Yes Nausea / Vomiting: adequately controlled Pain: adequately controlled Airway Patency, RR, SpO2: stable & adequate BP & HR: stable & adequate Hydration State: stable & adequate Neuraxial Anesthesia: was administered and sensory block is resolving Anesthetic Complications: no major complications apparent and Pt Satisfied with anesthetic care
--- NOTE | 2024-04-22 16:10 | XRay Report ---
EXAM: Radiographs of the Right Hip 2 views INDICATION: Right hip arthroplasty. Postoperative check. TECHNIQUE: AP view of the pelvis and crosstable lateral view of the right hip obtained. COMPARISON: No relevant prior studies available. FINDINGS: Limitations: None. Bones/joints: Satisfactory currents of noncemented total hip arthroplasty. No fracture, subluxation or dislocation. Soft tissues: Expected soft tissue gas and swelling noted in the operative region. IMPRESSION: Satisfactory appearance of right hip arthroplasty. Electronically signed by Dahlia Valverde 04-22-2024 4:09 PM
[2024-04-22] MEDS: MELATONIN 3 MG TAB PO SCH (19:59)
[2024-04-22] MEDS: FAMOTIDINE 20 MG TAB PO SCH (20:00)
[2024-04-22] MEDS: DOCUSATE SODIUM 100 MG CAP PO SCH (20:01)
[2024-04-22] MEDS: SENNA 8.6 MG TAB PO SCH (20:01)
[2024-04-23] MEDS: dexAMETHasone 4 MG TAB PO SCH (07:55)
[2024-04-23] MEDS: MULTIVITAMIN TAB PO SCH (07:55)
[2024-04-23] MEDS: ASPIRIN 81 MG ECTAB PO SCH (07:55)
[2024-04-23] MEDS: FLUTICASONE PROPIONATE NA SPR 16 GM BTL SCH (07:56)
[2024-04-23 08:19] VITALS: PULSE 84; RESP 16; TEMP 98.2; O2SAT 95
--- NOTE | 2024-04-23 08:27 | Orthopedic Progress Note ---
Date of Service April 23, 2024 Assessment & Plan (1) Status post right hip replacement: Overall he is doing fairly well. He is not having much pain in the right hip. He he will be seen by physical therapy today for ambulation and range of motion exercises. He is on aspirin for DVT prophylaxis. He can be discharged to home later today. He will follow-up orthopedics in 2 weeks. Rashaun Rosales was seen and examined at bedside this morning. Overall is doing fairly well. He is not having too much pain in the right hip. He has been up and ambulating to the bathroom. He has no complaints.. Review of Systems All systems reviewed & are unremarkable except as noted in HPI & below. Physical Exam On physical exam of the left hip, the dressing is clean and dry. His leg is out full extension. He has active dorsiflexion plantarflexion of his left ankle.. Results & Data Results & Data Laboratory Results . Diagnostic Findings Postoperative x-rays of the right hip show the prosthesis to be in anatomic alignment without any evidence of fracture complication, or loosening.. PG Care Time/CCT Total # of Minutes Spent Total Time Spent with Patient: Total time spent is greater than 50% in coordination of care (as documented) at patient's floor/unit and/or counseling patient: Coding Level of Care Code 93654 Post Operative Follow-Up Diagnoses Status post right hip replacement Z96.641
--- NOTE | 2024-04-23 08:28 | Discharge Summary ---
Date of Service April 23, 2024 Admission HPI (Per Admitting) Bobby is a pleasant 73-year-old male who has been dealing with chronic increasing right hip and groin pain. He has been treated by another provider. He is really struggling with his right hip. It has been worse over the last year. X-rays from an outside institution have shown advanced arthritis of his right hip. After failed conservative treatment, he has elected to proceed with a right anterior total of arthroplasty. . Admission Exam (Per Admitting) On physical exam of the right hip, he has pain with internal/external rotation. All of his pain is located in his groin. Principal Diagnosis Same as "Discharge Diagnosis" noted below under Discharge Instructions. Discharge Exam On physical exam of the left hip, the dressing is clean and dry. His leg is out full extension. He has active dorsiflexion plantarflexion of his left ankle.. Discharge Data Procedures Performed Operation Date: 04/22/24 09:00 Actual Procedures p Right Anterior Total Hip Arthroplasty, Uncemented(Right) - Marty Galvez DO Ordered Studies 04/22/24 09:00 FL hip RT 1V Routine Hospital Course (1) Status post right hip replacement: On April 22, 2024 Bobby arrived at [facility] and underwent a left hip replacement without complication. He had a spinal anesthetic. Postoperatively he was started on aspirin for DVT prophylaxis and transferred to the general orthopedic floors. His hospital course was uneventful. On postop day #1, his vital signs were stable and his pain was well-controlled. He was able to participate well with physical therapy doing ambulation and range of motion exercises. He was then discharged to home. He will follow-up orthopedics in 2 weeks. PG Care Time/CCT Total # of Minutes Spent Total Time Spent with Patient: Total time spent is greater than 50% in coordination of care (as documented) at patient's floor/unit and/or counseling patient: Discharge Plan Discharge Items Patient Disposition: Home - Self-Care Reason For Visit: Right Hip Arthritis Discharge Diagnosis: Right hip replacement Activity: Per Instructions section Non-emergency contact: Surgeon Call non-emergency contact if: your wound has increased redness and your wound has increased drainage Follow-up/Referrals: Latia Lopez MD [Primary Care Provider] - Diet: Regular Addtl Attending Provider Instructions: Activity and Therapy Recommendations: * If you are using [facility] then therapy will be provided at your home until they feel you have accomplished all of your goals. * If you are using [facility] then Physical Therapy will be provided until they feel you are ready to start Outpatient Physical Therapy. * If you are not using home therapy then Outpatient Physical Therapy should start about 3-5 days from your day of surgery. Therapy will last about 6-10 weeks * You were shown a series of exercises in the hospital. Do these exercises three times each day including the exercises you were shown in physical therapy. * Get up and walk several times each day.~ For the first four weeks, try not to stand or walk for more than one hour at a time. If you do stand or walk for more than one hour, you will not hurt anything, but your leg will likely swell.~~ * As you feel comfortable, you may change from the walker or crutches to a cane and~then to independent walking. Medications: * Narcotic You will likely be sent home from the hospital with a prescription for the narcotic pain medication that worked best throughout your stay. * Cefadroxil -take the antibiotic twice a day for 10 days to help prevent infection. * Aspirin Most patients will be required to take Aspirin 81mg twice a day for 6 weeks after surgery. This is obtained [id number] and a prescription is not necessary. * Other medications may be prescribed for specific circumstances. If you have any questions, please call the office at . * Resume previous home medications unless otherwise instructed TEDs/Elastic Stockings: The white elastic stockings help limit swelling and prevent blood clots from forming in your legs. The more you wear them, the more they work. Wear them for six weeks. Dressing Care: Leave the Silverlon dressing in place for 7 days. After 7 days you may remove the dressing. If the incision is not draining then you may leave the dileep open to air. If there is a little bit of drainage or if the dileep are getting stuck on your clothing then cover the incision with a dry dressing. The dileep will be removed at your 2 week follow-up appointment. Showering: You may shower with the Silverlon dressing in place. Do not let the shower spray hit the dressing directly. Pat the Silverlon dressing dry. If the dressing becomes wet underneath, then simply remove the dressing. Keep the incision dry until you are 7 days out from the day of surgery. After 7 days you may remove the Silverlon dressing and shower with the dileep exposed. Let soapy water run over the dileep and pat them dry. Do not scrub or soak the incision. Diet: You may resume your previous diet. Things To Watch For: * Drainage from the incision site that occurs more than one week after your surgery. * Increased redness at the incision site. * Fever above 102 degrees Fahrenheit. * Unusual chest pain or shortness of breath. * Call [facility] at with any of the above problems Follow-Up Visit: Follow-up with Dr. Galvez's PA (Marty Sims) 2-3 weeks after your day of surgery. He will remove your dileep and answer any questions. If you have any additional questions or concerns, Dr Galvez is usually in the office at the same time and will be available An appointment was probably scheduled when you signed-up for surgery in the office. If you have any questions call Office Instructions: More detailed instructions as well as Frequently Asked Questions were provided in a folder by our office when you signed-up for surgery. Please review these instructions when you get home. If you have any further questions or concerns, please feel free to call the office at [phone] Pending Studies at Discharge: No Stand-Alone Forms: My [facility] Alert Logic, Smoking Cessation Medications and DC Order Prescriptions: New cefadroxil 500 mg capsule 500 mg PO BID 10 Days Qty: 20 0RF aspirin 81 mg Tablet,Delayed Release (Dr/Ec) 81 mg PO BID 42 Days Qty: 84 0RF Continued acetaminophen [Tylenol Extra Strength] 500 mg tablet 1,000 mg PO HS PRN (Reason: Pain) melatonin 5 mg Tablet 5 mg PO HS fluticasone propionate [Flonase] 50 mcg/actuation [place],Suspension 1 spray INTRANASAL QAM Rx Instructions: administer into each nostril polyethylene glycol 3350 [Miralax] 17 gram Powder In Packet 17 g PO DAILY PRN (Reason: Constipation) famotidine [Pepcid AC] 20 mg Tablet 20 mg PO HS calcium carbonate [Tums] 200 mg calcium (500 mg) Tablet,Chewable 200 mg PO BID PRN (Reason: acid reflux) finasteride 5 mg tablet 5 mg PO QAM Cornish Xl 1 tab PO QAM Discharge Orders: Discharge Order (Routine); Ordered 04/23/24 Ordered By: Marty Galvez Admission Data Admit Date/Time: 04/22/24 11:08 Attending Provider: Marty Galvez Admit Provider: Marty Galvez Primary Care Provider: Latia Lopez
[2024-04-23] MEDS ORDERED: OMEGA PO SCH (09:00)
[2024-04-23] MEDS: ACETAMINOPHEN 500 MG TAB PO PRN (09:58)
[2024-04-23] MEDS: FINASTERIDE 5 MG TAB PO SCH (09:58)
[2024-04-23 12:00] VITALS: BP 138/83
== END 2024-04-23 12:34 | disposition home or self-care (01) ==
LOC: 3W 06:58 → ASU 06:58